=== PATIENT | male | born 1975 | race Hispanic/Latino ===

== ENCOUNTER 2018-12-06 21:19 | Emergency (ER) | payer OTHER ==
--- OUTSIDE RECORDS SUMMARY | 2018-12-06 21:21 | XMS REPORT ---
:1975 Author Organization [facility] Address [address] [place] [address] Dr. Faustin [address] [place] [address] Care Team Providers Name Role Phone Unavailable Unavailable Unavailable Problems This patient has no known problems. Allergies, Adverse Reactions, Alerts This patient has no known allergies or adverse reactions. Medications This patient has no known medications.
--- OUTSIDE RECORDS SUMMARY | 2018-12-06 21:21 | XMS REPORT | Summary of Care ---
:1975 Author Organization [facility] Address [address] [place] [address] Care Team Providers Name Role Phone Monty Murrell MD Primary Care Provider Encounter Details Date Type Department Care Team Description 11/16/2018 Orders Only [facility] Doctor Unassigned, No [address] [facility] [place] [address] [address] [place] [address] Allergies No Known Allergiesdocumented as of this encounter (statuses as of 11/16/2018) Medications Medication Sig Dispensed Refills Start Date End Date Status lisinopril 20 mg Take 1 tablet by 90 tablet 4 09/05/2017 Active tabletIndications: mouth daily. Essential hypertension tadalafil (CIALIS) 20 Take 1 tablet by 6 tablet 12 09/05/2017 Active mg tabletIndications: mouth as needed Erectile dysfunction, for Erectile unspecified erectile dysfunction. dysfunction type documented as of this encounter (statuses as of 11/16/2018) Active Problems Problem Noted Date Essential hypertension 08/18/2015 ED (erectile dysfunction) 08/18/2015 documented as of this encounter (statuses as of 11/16/2018) Social History Tobacco Use Types Packs/Day Years Used Date Current Some Day Smoker Smokeless Tobacco: Current User Snuff Alcohol Use Drinks/Week oz/Week Comments Yes 0 Standard drinks or equivalent 28.8 occ 48 Cans of beer Sex Assigned at Date Recorded Not on file Job Start Date Occupation Industry Not on file Not on file Not on file Travel History Travel Start Travel End No recent travel history available. documented as of this encounter Last Filed Vital Signs Not on filedocumented in this encounter Plan of Treatment Date Type Specialty Care Team Description 11/16/2018 Office Visit Family Medicine Monty Murrell MD [address] [place] [address] [place] [address] Health Maintenance Due Date Last Done Comments PNEUMOCOCCAL 0-64 YEARS COMBINED SERIES (1 of - 1981 PPSV23) DTaP,Tdap,and Td Vaccines (1 - Tdap) 1994 INFLUENZA VACCINE (#1) 2018 documented as of this encounter Procedures Procedure Name Priority Date/Time Associated Diagnosis Comments ASSIGNMENT OF BENEFITS Routine 11/16/2018 8:28 AM CDT documented in this encounter Results Not on filedocumented in this encounter Insurance Payer Benefit Plan / Group Subscriber ID Effective Dates Phone Address Type AETLEONARD MAIER [employer] [id number] 2014-Present PPO documented as of this encounter
--- OUTSIDE RECORDS SUMMARY | 2018-12-06 21:21 | XMS REPORT | Summary of Care ---
:1975 Author Organization [facility] Address [address] [place] [address] Care Team Providers Name Role Phone Monty Murrell MD Primary Care Provider Encounter Details Date Type Department Care Team Description 10/04/2018 Orders Only [facility] Doctor Unassigned, No 301 [facility] [place] [address] [address] [place] [address] Allergies No Known Allergiesdocumented as of this encounter (statuses as of 10/17/2018) Medications Medication Sig Dispensed Refills Start Date End Date Status lisinopril 20 mg Take 1 tablet by 90 tablet 4 09/05/2017 Active tabletIndications: mouth daily. Essential hypertension tadalafil (CIALIS) 20 Take 1 tablet by 6 tablet 12 09/05/2017 Active mg tabletIndications: mouth as needed Erectile dysfunction, for Erectile unspecified erectile dysfunction. dysfunction type documented as of this encounter (statuses as of 10/17/2018) Active Problems Problem Noted Date Essential hypertension 08/18/2015 ED (erectile dysfunction) 08/18/2015 documented as of this encounter (statuses as of 10/17/2018) Social History Tobacco Use Types Packs/Day Years [...] filedocumented in this encounter Plan of Treatment Health Maintenance Due Date Last Done Comments PNEUMOCOCCAL 0-64 YEARS COMBINED SERIES (1 of - 1981 PPSV23) DTaP,Tdap,and Td Vaccines (1 - Tdap) 1994 INFLUENZA VACCINE 11/18/2018 documented as of this encounter Procedures Procedure Name Priority Date/Time Associated Diagnosis Comments AUTHORIZATION FOR RELEASE Routine 10/04/2018 12:01 AM OF [facility] CDT documented in this encounter Results Not on filedocumented in this encounter Insurance Payer Benefit Plan / Group Subscriber ID Effective Dates Phone Address Type AETORRI MAIER [employer] [id number] 2014-Present PPO documented as of this encounter
--- OUTSIDE RECORDS SUMMARY | 2018-12-06 21:22 | XMS REPORT | Summary of Care ---
:1975 Author Organization [facility] - [facility] Address [address] [place] [address] Care Team Providers Name Role Phone Monty Murrell MD Primary Care Provider Reason for Visit Reason Comments Physical Wellness - Male Annual Refill Request LAB WORK Encounter Details Date Type Department Care Team Description 11/16/2018 Office Visit [facility] Family Monty Murrell Annual physical exam (Primary Dx); Medicine - Rosa Garces MD Essential hypertension; [facility] [address] [place] [address] Erectile dysfunction, unspecified [place] [phone] Allergies No Known Allergiesdocumented as of this encounter (statuses as of 11/16/2018) Medications Medication Sig Dispensed Refills Start Date End Date Status tadalafil (CIALIS) Take 1 tablet 6 tablet 12 11/16/2018 Active 20 mg by mouth as tabletIndications: needed for Erectile Erectile dysfunction, dysfunction. unspecified erectile dysfunction type lisinopril 20 mg Take 1 tablet 90 tablet 4 11/16/2018 Active tabletIndications: by mouth Essential daily. hypertension lisinopril 20 mg Take 1 tablet 90 tablet 4 09/05/2017 11/16/2018 Discontinued tabletIndications: by mouth Essential daily. hypertension tadalafil (CIALIS) Take 1 tablet 6 tablet 12 09/05/2017 11/16/2018 Discontinued 20 mg by mouth as tabletIndications: needed for Erectile Erectile dysfunction, dysfunction. unspecified erectile dysfunction type documented as of this encounter [...] of this encounter Last Filed Vital Signs Vital Sign Reading Time Taken Comments Blood Pressure 129/89 11/16/2018 8:38 AM CDT Pulse 73 11/16/2018 8:38 AM CDT Temperature 36.8 C (98.2 F) 11/16/2018 8:38 AM CDT Respiratory Rate - - Oxygen Saturation 98% 11/16/2018 8:38 AM CDT Inhaled Oxygen Concentration - - Weight 93.4 kg (206 lb) 11/16/2018 8:38 AM CDT Height 175.3 cm (5' 9") 11/16/2018 8:38 AM CDT Body Mass Index 30.42 11/16/2018 8:38 AM CDT documented in this encounter Progress Notes Joseline Foster - 11/16/2018 8:30 AM CDTVenipuncture Collection performed by clean technique. Total of 1 attempts were made. Slight pressureand a bandage/ dressing were applied to the site(s). The patient experienced no complications. Specimens were sent processed to [facility] laboratories. INTMonty Murrell MD - 11/16/2018 8:30 AM CDT CC: annual exam Aston is a 43 year old male Hypertension Chronicity: Chronic Context: normal sodium, not caffeine, not drug abuse, not herbal remedies, not medication change, not noncompliance, not OTC medications used and not stress Relieved by: PEPPER inhibitors Associated symptoms: no chest pain, no epistaxis, no headaches, no palpitations , no peripheral edemaand no shortness of breath Risk factors: family hx of HTN Risk factors: no alcohol use, no cardiac disease, no cocaine use, no decongestant use, no diabetes, no kidney disease, no obesity, no prior aneurysm , no prior stroke, no PVD and no tobacco use No Known Allergies Current Outpatient Medications Medication Sig Dispense Refill lisinopril 20 mg tablet Take 1 tablet by mouth daily. 90 tablet 4 tadalafil (CIALIS) 20 mg tablet Take 1 tablet by mouth as needed for Erectile dysfunction. 6 tablet 12 No current facility-administered medications for this visit. Past Medical History: Diagnosis Date ED (erectile dysfunction) Hypertension Past Surgical History: Procedure Laterality Date APPENDECTOMY EXTRACORPOREAL SHOCKWAVE LITHOTRIPSY Right 04/2016 KNEE ARTHROSCOPY Left REMOVAL OF KIDNEY STONE multiple stones over the years. Social History Socioeconomic History Marital status: Spouse name: Not on file Number of children: Not on file Years of education: Not on file Highest education level: Not on file Occupational History Not on file Social Needs Financial resource strain: Not on file Food insecurity: Worry: Not on file Inability: Not on file Transportation needs: Medical: Not on file Non-medical: Not on file Tobacco Use Smoking status: Current Some Day Smoker Smokeless tobacco: Current User Types: Snuff Substance and Sexual Activity Alcohol use: Yes Alcohol/week: 28.8 oz Types: 48 Cans of beer per week Comment: occ Drug use: No Sexual activity: Yes Partners: Female Lifestyle Physical activity: Days per week: Not on file Minutes per session: Not on file Stress: Not on file Relationships Social connections: Talks on phone: Not on file Gets together: Not on file Attends nondenominational service: Not on file Active member of club or organization: Not on file Attends meetings of clubs or organizations: Not on file Relationship status: Not on file Intimate partner violence: Fear of current or ex partner: Not on file Emotionally abused: Not on file Physically abused: Not on file Forced sexual activity: Not on file Other Topics Concern Not on file Social History Narrative 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 Family History Problem Relation Age of Onset Hypertension Mother No Significant Medical Problems Father Review of Systems HENT: Negative for nosebleeds. Respiratory: Negative for shortness of breath. Cardiovascular: Negative for chest pain and palpitations. Neurological: Negative for headaches. BP 129/89 (BP Location: Left arm, Patient Position: Sitting, BP CUFF SIZE: Adult Large) | Pulse 73| Temp 36.8 C (98.2 F) (Oral) | Ht 5' 9" (1.753 m) | Wt 206 lb (93.4 kg) | SpO2 98% | BMI 30.42 kg/m Physical Exam Constitutional: He is oriented to person, place, and time. He appears well- developed and well-nourished. HENT: Head: Normocephalic and atraumatic. Eyes: Conjunctivae are normal. Neck: Normal range of motion. Neck supple. No JVD present. No tracheal deviation present. No thyromegaly present. Cardiovascular: Normal rate, regular rhythm, normal heart sounds and intact distal pulses. Exam reveals no gallop and no friction rub. No murmur heard. Pulmonary/Chest: Effort normal and breath sounds normal. No respiratory distress. He has no wheezes.He has no rales. He exhibits no tenderness. Abdominal: Soft. Bowel sounds are normal. He exhibits no distension and no mass. There is no tenderness. There is no rebound and no guarding. Musculoskeletal: Normal range of motion. He exhibits no edema or tenderness. Lymphadenopathy: He has no cervical adenopathy. Neurological: He is alert and oriented to person, place, and time. Skin: Skin is warm and dry. Diagnosis: 1. Annual physical exam 2. Essential hypertension lisinopril 20 mg tablet CBC WITH DIFF COMP. METABOLIC PANEL (66217) LIPID PANEL (33351)(TOTAL CHOLESTEROL, TRIGLYCERIDES, HDL) CBC WITH DIFFERENTIAL 3. Erectile dysfunction, unspecified erectile dysfunction type tadalafil ( CIALIS) 20 mg tablet Follow up: prn Patient Care Team: Monty Murrell MD as PCP - General ([facility]-FAMILY MEDICINE) Plan of care, desired health behaviors, goals,& medication discussed with patient. Education resources & self management tools provided and reviewed with AVS. Patient/guardian/family verbalized understanding & agrees to plan of care. Barriers to care: None Ability to manage care: Good documented in this encounter Plan of Treatment Name Type Priority Associated Diagnoses Order Schedule CBC WITH DIFF LAB Routine Essential hypertension Ordered: 11/16/2018 COMP. METABOLIC PANEL LAB Routine Essential hypertension Ordered: 2018 (85455) LIPID PANEL (30287)(TOTAL LAB Routine Essential hypertension Ordered: 11/16 CHOLESTEROL, TRIGLYCERIDES, HDL) CBC WITH DIFFERENTIAL LAB Routine Essential hypertension Ordered: 2018 Health Maintenance Due Date Last Done Comments PNEUMOCOCCAL 0-64 YEARS COMBINED SERIES (1 of - 1981 PPSV23) DTaP,Tdap,and Td Vaccines (1 - Tdap) 1994 INFLUENZA VACCINE (#1) 2018 documented as of this encounter Results Not on filedocumented in this encounter Visit Diagnoses Diagnosis Annual physical exam - Primary Routine general medical examination at a health care facility Essential hypertension Unspecified essential hypertension Erectile dysfunction, unspecified erectile dysfunction type documented in this encounter ([place]) [place] [address] documented as of this encounter
--- OUTSIDE RECORDS SUMMARY | 2018-12-06 21:22 | XMS REPORT | Summary of Care ---
:1975 Author Organization [facility] - Health Address [address] [place] [address] Care Team Providers Name Role Phone Monty Murrell MD Primary Care Provider Reason for Visit Reason Comments Physical Wellness - Male Annual Refill Request Encounter Details Date Type Department Care Team Description 11/16/2018 Office Visit [facility] Family Monty Murrell Annual physical exam (Primary Dx); Medicine - Rosa Garces MD Essential hypertension; [facility] 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 Family [...] tablet CBC WITH DIFF COMP. METABOLIC PANEL (81611) LIPID PANEL (11452)(TOTAL CHOLESTEROL, TRIGLYCERIDES, HDL) CBC WITH DIFFERENTIAL 3. [...] PANEL LAB Routine Essential hypertension Ordered: 2018 (86413) LIPID PANEL (18331)(TOTAL LAB Routine Essential hypertension Ordered: 11/16 CHOLESTEROL, TRIGLYCERIDES, HDL) CBC WITH DIFFERENTIAL LAB Routine Essential hypertension Ordered: 2018 Health Maintenance Due Date Last Done Comments PNEUMOCOCCAL 0-64 YEARS COMBINED SERIES (1 of 1 - 1981 PPSV23) DTaP,Tdap,and Td Vaccines (1 - Tdap) 1994 INFLUENZA VACCINE (#1) 2018 documented as of this encounter Results Not on filedocumented in this encounter Visit Diagnoses Diagnosis Annual physical exam - Primary Routine general medical examination at a health care facility Essential hypertension Unspecified essential hypertension Erectile dysfunction, unspecified erectile dysfunction type documented in this encounter ([place]) [place] [address] documented as of this encounter
--- OUTSIDE RECORDS SUMMARY | 2018-12-06 21:22 | XMS REPORT | Summary of Care ---
:1975 Author Organization [facility] - [facility] Address [address] [place] [address] Care Team Providers Name Role Phone Monty Murrell MD Primary Care Provider Reason for Visit Reason Comments Physical Wellness - Male Annual Refill Request LAB WORK Encounter Details Date Type Department Care Team Description 11/16/2018 Office Visit [facility] Family Monty Murrell Annual physical exam (Primary Dx); Medicine - Rosa Garces MD Essential hypertension; [facility] [address] [place] [address] Erectile dysfunction, unspecified [place] [phone] Allergies No Known Allergiesdocumented as of this encounter (statuses as of 11/19/2018) Medications Medication Sig Dispensed Refills Start Date [...] as of this encounter (statuses as of 11/19/2018) Active Problems Problem Noted Date Essential hypertension 08/18/2015 ED (erectile dysfunction) 08/18/2015 documented as of this encounter (statuses as of 11/19/2018) Social History Tobacco Use Types Packs/Day Years [...] no complications. Specimens were sent processed to [facility] laboratories. 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 Family [...] tablet CBC WITH DIFF COMP. METABOLIC PANEL (94122) LIPID PANEL (30842)(TOTAL CHOLESTEROL, TRIGLYCERIDES, HDL) CBC WITH DIFFERENTIAL 3. [...] documented in this encounter Plan of Treatment Health Maintenance Due Date Last Done Comments PNEUMOCOCCAL 0-64 YEARS COMBINED SERIES (1 of - 1981 PPSV23) DTaP,Tdap,and Td Vaccines (1 - Tdap) 1994 INFLUENZA VACCINE (#1) 2018 documented as of this encounter Procedures Procedure Name Priority Date/Time Associated Diagnosis Comments CBC WITH DIFFERENTIAL Routine 11/16/2018 8:54 Essential Results for this AM CDT hypertension procedure are in the results section. CBC WITH DIFF Routine 11/16/2018 8:54 Essential Results for this AM CDT hypertension procedure are in the results section. LIPID PANEL Routine 11/16/2018 8:54 Essential Results for this (05162)(TOTAL AM CDT hypertension procedure are in CHOLESTEROL, the results TRIGLYCERIDES, HDL) section. COMP. METABOLIC PANEL Routine 11/16/2018 8:54 Essential Results for this (90666) AM CDT hypertension procedure are in the results section. documented in this encounter Results CBC WITH DIFFERENTIAL (11/16/2018 8:54 AM CDT) WBC 7.41 4.20 - 10.70 [facility] 10*3/L [facility] RBC 5.61 (H) 4.26 - 5.52 [facility] 10*6/L [facility] HGB 16.8 (H) 12.2 - 16.4 [facility] g/dL [facility] HCT 48.4 38.4 - 49.3 % [facility] MCV 86.3 81.7 - 95.6 fL [facility] MCH 29.9 26.1 - 32.7 pg [facility] MCHC 34.7 31.2 - 35.0 [facility] g/dL [facility] RDW-SD 38.9 38.5 - 51.6 fL [facility] RDW-CV 12.4 12.1 - 15.4 % [facility] PLT 304 150 - 328 [facility] 10*3/L [facility] MPV 11.3 9.8 - 13.0 fL [facility] NRBC/100 WBC 0.0 0.0 - 10.0 /100 [facility] WBCs [facility] NRBC x10^3 <0.01 10*3/L [facility] GRAN MAT (NEUT) % 56.6 % [facility] IMM GRAN % 0.40 % [facility] LYMPH % 33.3 % [facility] MONO % 7.0 % [facility] EOS % 1.5 % [facility] BASO % 1.2 % [facility] GRAN MAT x10^3(ANC) 4.19 1.99 - 6.95 [facility] 10*3/uL [facility] IMM GRAN x10^3 0.03 0.00 - 0.06 [facility] 10*3/uL [facility]OSPITAL [facility] LYMPH x10^3 2.47 1.09 - 3.23 [facility] 10*3/uL [facility] MONO x10^3 0.52 0.36 - 1.02 [facility] 10*3/uL [facility] EOS x10^3 0.11 0.06 - 0.53 [facility] 10*3/uL [facility] BASO x10^3 0.09 0.01 - 0.[address]/uL [facility] Specimen Blood - ARM, LEFT Performing Organization Address [facility] Phone Number [facility] CLIA: [id number], [address] [place] [address] LIPID PANEL (49284)(TOTAL CHOLESTEROL, TRIGLYCERIDES, HDL) (11/16/2018 8:54 AM CDT) CHOL 164 120 - 200 mg/dL [facility] HDL 37 (L) >40 mg/dL [facility] HDLC RATIO 4.4 <=5.0 [facility] TRIG 263 (H) 30 - 170 mg/dL [facility] LDL CHOL 74 <=160 mg/dL [facility] VLDL 53 5 - 60 mg/dL [facility] Specimen Blood - ARM, LEFT Performing Organization Address [facility] Phone Number [facility] CLIA: [id number], [address] [place] [id number] [address] COMP. METABOLIC PANEL (64668) (11/16/2018 8:54 AM CDT) NA 145 135 - 145 mmol/L [facility] K 4.5 3.5 - 5.0 mmol/L [facility] CL 104 98 - 108 mmol/L [facility] CO2 TOTAL 28 23 - 31 mmol/L [facility] AGAP 13 2 - 16 [facility] BUN 11 7 - 23 mg/dL [facility] GLUCOSE 92 70 - 110 mg/dL [facility] CREATININE 1.00 0.60 - 1.25 [facility] mg/dL [facility] TOTAL BILI 0.7 0.1 - 1.1 mg/dL [facility] CALCIUM 10.0 8.6 - 10.6 mg/dL [facility] T PROTEIN 8.0 6.3 - 8.2 g/dL [facility] ALBUMIN 4.7 3.5 - 5.0 g/dL [facility] ALK PHOS 90 34 - 122 U/L [facility] ALT(SGPT) 46 9 - 51 U/L [facility] AST(SGOT) 30 13 - 40 U/L [facility] eGFR Calculation 81.6 mL/min/1.73m2 [facility] (Non-) [facility] eGFR Calculation 98.8 mL/min/1.73m2 [facility] () [facility] Specimen Blood - ARM, LEFT Narrative Performed At Association of Glomerular Filtration Rate (GFR) [facility] and Staging of Kidney Disease* + + +- + | GFR (mL/min/1.73 m2)| With Kidney Damage|Without Kidney Damage + + +- + |>90| Stage one| Normal + + +- + |60-89|S tage two| Decreased GFR + + +- + |30-59|S tage three| Stage three + + +- + |15-29|S tage four | Stage four + + +- + |<15 (or dialysis)|Stage five | Stage five + + +- + *Each stage assumes the associated GFR level has been in effect for at least three months.Stages 1 to 5, with or without kidney disease, indicate chronic kidney disease. Notes: Determination of stages one and two (with eGFR >59mL/min/1.73 m2) requires estimation of kidney damage for at least three months as defined by structural or functional abnormalities of the kidney, manifested by either: Pathological abnormalities or Markers of kidney damage (including abnormalities in the composition of the blood or urine or abnormalities in imaging tests). Performing Organization Address City/State/Zipcode Phone Number [facility] CLIA: [id number], [address] [place] [address] documented in this encounter Visit Diagnoses Diagnosis Annual physical exam - Primary Routine general medical examination at a health care facility Essential hypertension Unspecified essential hypertension Erectile dysfunction, unspecified erectile dysfunction type documented in this encounter ([place]) [place] [address] documented as of this encounter
--- OUTSIDE RECORDS SUMMARY | 2018-12-06 21:22 | XMS REPORT | Summary of Care ---
:1975 Author Organization [facility] - Health Address [address] [place] [id number] Care Team Providers Name Role Phone Monty Murrell MD Primary Care Provider Reason for Visit Reason Comments Physical Wellness - Male Annual Refill Request Encounter Details Date Type Department Care Team Description 11/16/2018 Office Visit [facility] Family Monty Murrell Annual physical exam (Primary Dx); Medicine - Rosa Garces MD Essential hypertension; [facility] 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 Family [...] tablet CBC WITH DIFF COMP. METABOLIC PANEL (67649) LIPID PANEL (39563)(TOTAL CHOLESTEROL, TRIGLYCERIDES, HDL) CBC WITH DIFFERENTIAL 3. [...] PANEL LAB Routine Essential hypertension Ordered: 2018 (04352) LIPID PANEL (95605)(TOTAL LAB Routine Essential hypertension Ordered: 11/16 CHOLESTEROL, [...] erectile dysfunction type documented in this encounter ([place]) [place] [address] documented as of this encounter
[2018-12-06] MEDS ORDERED: KETOROLAC 30 MG/ML INJ ONE (21:42)
[2018-12-06] MEDS ORDERED: NA CHLORIDE 0.9% 1,000 ML ONE (21:42)
[2018-12-06 21:51] LABS: Absolute Lymphocytes (CBC) 2.9 K/uL (0.7-4.9); Basophils % 1.2 % (0-1.3); Hematocrit 47.5 % (39.6-49.0); Lymphocytes % 20.4 % (15.3-44.8); MPV 9.3 fL (7.6-11.3); RBC Red Blood Cell Count 5.48 M/uL (4.33-5.43)
[2018-12-06] MEDS ORDERED: ONDANSETRON 4 MG/2 ML VIAL ONE (22:05)
[2018-12-06] MEDS ORDERED: MORPHINE 4 MG/ML SYR ONE (22:05)
[2018-12-06 22:08] LABS: Albumin 4.3 g/dL (3.4-5.0); Bilirubin Direct 0.1 mg/dL (0-0.2); Bilirubin Total 0.6 mg/dL (0.2-1.0); Potassium 3.9 mmol/L (3.5-5.1); Protein, Total 7.8 g/dL (6.4-8.2)
[2018-12-06 22:46] LABS: Urine Blood 2+ (NEG); Urine Glucose NEGATIVE (NEG); Urine Protein 1+ (NEG); Urine Specific Gravity >1.030 (1.005-1.030)
[2018-12-06] MEDS ORDERED: CEFTRIAXONE/SWI 1gm 1 GM/10 ML SYR ONE (23:01)
[2018-12-06] MEDS ORDERED: HYDROMORPHONE HCL 1 MG/ML INJ ONE (23:01)
--- NOTE | 2018-12-06 23:38 | ER ---
Nurse's Notes [facility] Name: Aston Scanlon Age: 43 yrs Sex: Male : 1975 Arrival Date: 12/06/2018 Time: 21:22 Bed 30 Private MD: Diagnosis: Hydronephrosis with renal and ureteral calculous obstruction;Elevated white blood cell count Presentation: 12/06 21:23 Presenting complaint: Patient states: "I got a kidney stones" Reports left flank pain, aj1 urinary frequency. Denies dysuria, denies fever. Reports that he has a history of kidney stones and this feels similar to previous episodes. Transition of care: patient was not received from another setting of care. Onset of symptoms was December 06, 2018. Risk Assessment: Do you want to hurt yourself or someone else? Patient reports no desire to harm self or others. Initial Sepsis Screen: Does the patient meet any 2 criteria? No. Patient's initial sepsis screen is negative. Does the patient have a suspected source of infection? No. Patient's initial sepsis screen is negative. Care prior to arrival: None. 21:23 Method Of Arrival: Ambulatory aj1 21:23 Acuity: CORDELL 3 aj1 Triage Assessment: 21:26 General: Appears in no apparent distress. uncomfortable, Behavior is calm, cooperative, aj1 appropriate for age. Pain: Pain currently is 10 out of 10 on a pain scale. Neuro: Level of Consciousness is awake, alert, obeys commands. Cardiovascular: Patient's skin is warm and dry. Respiratory: Airway is patent Respiratory effort is even, unlabored, Respiratory pattern is regular, symmetrical. GI: Patient currently denies nausea, vomiting. : Reports urinary frequency. Historical: - Allergies: 21:26 No Known Allergies; aj1 - Home Meds: 21:26 Tramadol Oral [Active]; lisinopril 20 mg Oral tab 1 tab once daily [Active]; aj1 - PMHx: 21:26 Hypertension; Kidney stones; aj1 - Immunization history:: Flu vaccine is up to date. - Social history:: Smoking status: Patient/guardian denies using tobacco. - Ebola Screening: : Patient denies travel to an Ebola-affected area in the 21 days before illness onset. - Family history:: not pertinent. Screenin:54 Abuse screen: Denies threats or abuse. Denies injuries from another. Nutritional rv screening: No deficits noted. Tuberculosis screening: No symptoms or risk factors identified. Fall Risk None identified. Assessment: 21:47 General: Appears in no apparent distress. comfortable. Pain: Complains of pain in right rv lower quadrant. Neuro: Level of Consciousness is awake, alert, obeys commands, Oriented to person, place, time, situation. Cardiovascular: Patient's skin is warm and dry. Respiratory: Airway is patent. GI: Bowel sounds present X 4 quads. Abd is soft and non tender X 4 quads. : No signs and/or symptoms were reported regarding the genitourinary system. EENT: No signs and/or symptoms were reported regarding the EENT system. Derm: Skin is intact. Musculoskeletal: No signs and/or symptoms reported regarding the musculoskeletal system. 23:18 Reassessment: Patient appears in no apparent distress at this time. Patient and/or rv family updated on plan of care and expected duration. Pain level reassessed. Patient is alert, oriented x 3, equal unlabored respirations, skin warm/dry/pink. PATIENT IS UPDATED ON RESULTS AND PLAN OF CARE. AWAITING RESULT OF CT SCAN. 12/07 00:03 Reassessment: CAME IN THE ER AND TOOK THE PATIENT HOME. rv Vital Signs: 12/06 21:26 BP 150 / 107; Pulse 64; Resp 18; Temp 97.4; Pulse Ox 96% on R/A; Weight 94.35 kg (R); aj1 Height 5 ft. 10 in. (177.80 cm) (R); Pain 10/10; 22:30 BP 146 / 99; Pulse 75; Resp 15; Pulse Ox 97% on R/A; rv 23:15 Pain 7/10; rv 23:17 BP 137 / 101; Pulse 68; Resp 16; Pulse Ox 97% ; rv 21:26 Body Mass Index 29.84 (94.35 kg, 177.80 cm) aj1 ED Course: 21:22 Patient arrived in ED. mr 21:25 Triage completed. aj1 21:26 Arm band placed on Patient placed in an exam room. aj1 21:29 Houston Gutierrez MD is Attending Physician. [facility] 21:39 Shailesh Herrera, DELISA is Primary Nurse. rv 21:54 Patient has correct armband on for positive identification. Bed in low position. Call rv light in reach. Side rails up X 1. Pulse ox on. NIBP on. 21:54 Initial lab(s) drawn, by me, sent to lab. Inserted saline lock: 20 gauge in right rv antecubital area, using aseptic technique. Blood collected. 22:26 CT completed. Patient tolerated procedure well. Patient moved back from CT. jg6 22:33 CT Stone Protocol In Process Unspecified. EDMS 23:38 Caitlyn Vance MD is Referral Physician. hieu 23:50 No provider procedures requiring assistance completed. IV discontinued, intact, rv bleeding controlled, No redness/swelling at site. Pressure dressing applied. Administered Medications: 21:43 Drug: NS 0.9% 1000 ml Route: IV; Rate: 1 bolus; Site: right antecubital; rv 23:13 Follow up: IV Status: Completed infusion; IV Intake: 1000ml rv 21:43 Drug: TORadol 30 mg Route: IVP; Site: right antecubital; rv 23:14 Follow up: Response: No adverse reaction; Pain is decreased rv 22:13 Drug: morphine 4 mg {Note: rass 0.} Route: IVP; Site: right antecubital; rv 23:15 Follow up: Pain 7/10 Adult; Response: No adverse reaction; Pain is decreased rv 23:15 Follow up: Response: RASS: Alert and Calm (0) rv 22:13 Drug: Zofran 4 mg Route: IVP; Site: right antecubital; rv 23:15 Follow up: Response: No adverse reaction rv 22:30 Drug: Rocephin 1 grams Route: IV; Rate: per protocol; Site: right antecubital; rv 23:15 Follow up: IV Status: Completed infusion rv 22:53 CANCELLED (Duplicate Order): Dilaudid 1 mg IM once; RASS on ADMIN: Combtv4, Very hieu Agttd3, Agttd2, Rstlss1, AlertClm0, Drwsy-1, Lt Sdtn-2, Mod Sdtn-3, Dp Sdtn-4, UnArsble-5 23:08 Drug: Dilaudid 1 mg {Note: RASS 0.} Route: IVP; Site: right antecubital; rv 23:50 Follow up: Response: No adverse reaction; Marked relief of symptoms; Pain is decreased; rv RASS: Alert and Calm (0) 23:16 Drug: NS 0.9% 1000 ml Route: IV; Rate: 1 bolus; Site: right antecubital; rv 12/07 00:00 Follow up: IV Status: Completed infusion rv 12/06 23:49 Drug: Flomax 0.4 mg Route: PO; rv 23:49 Follow up: Response: Medication administered at discharge. rv Intake: 23:13 IV: 1000ml; Total: 1000ml. rv Outcome: 23:38 Discharge ordered by . hieu 23:50 Discharged to home ambulatory, with family. rv 23:50 Condition: good 23:50 Discharge instructions given to patient, Instructed on discharge instructions, follow up and referral plans. medication usage, Demonstrated understanding of instructions, follow-up care, medications, Prescriptions given X 4. 12/07 00:04 Patient left the ED. rv Signatures: Dispatcher [employer] EDLaya Belle RN RN Houston Sims MD MD cha Rivera, Mary mr Vicente, Ronaldo, RN RN rv Garcia, Jessica jg6
--- NOTE | 2018-12-06 23:39 | EDPHYS ---
Physician Documentation [facility] Name: Aston Scanlon Age: 43 yrs Sex: Male : 1975 Arrival Date: 12/06/2018 Time: 21:22 Bed 30 Private MD: AYALA Physician Houston Gutierrez HPI: 12/06 22:52 This 43 yrs old Male presents to ER via Ambulatory with complaints of Possible hieu Kidney Stone. 22:52 The patient presents with abdominal pain in the lower abdomen, right lower quadrant. hieu Onset: The symptoms/episode began/occurred this morning. The patient complains of pain in the right mid back and right low back. The pain radiates to the right mid back and right low back. Onset: The symptoms/episode began/occurred today. Modifying factors: The symptoms are alleviated by nothing. the symptoms are aggravated by nothing. Associated signs and symptoms: The patient has no apparent associated signs or symptoms. Historical: - Allergies: 21:26 No Known Allergies; aj1 - Home Meds: 21:26 Tramadol Oral [Active]; lisinopril 20 mg Oral tab 1 tab once daily [Active]; aj1 - PMHx: 21:26 Hypertension; Kidney stones; aj1 - Immunization history:: Flu vaccine is up to date. - Social history:: Smoking status: Patient/guardian denies using tobacco. - Ebola Screening: : Patient denies travel to an Ebola-affected area in the 21 days before illness onset. - Family history:: not pertinent. ROS: 22:52 Constitutional: Negative for fever, chills, and weight loss, Eyes: Negative for injury, hieu pain, redness, and discharge, ENT: Negative for injury, pain, and discharge, Neck: Negative for injury, pain, and swelling, Cardiovascular: Negative for chest pain, palpitations, and edema, Respiratory: Negative for shortness of breath, cough, wheezing, and pleuritic chest pain, : Negative for injury, bleeding, discharge, and swelling, MS/Extremity: Negative for injury and deformity, Skin: Negative for injury, rash, and discoloration, Neuro: Negative for headache, weakness, numbness, tingling, and seizure, Psych: Negative for depression, anxiety, suicide ideation, homicidal ideation, and hallucinations, Allergy/Immunology: Negative for hives, rash, and allergies, Endocrine: Negative for neck swelling, polydipsia, polyuria, polyphagia, and marked weight changes, Hematologic/Lymphatic: Negative for swollen nodes, abnormal bleeding, and unusual bruising. 22:52 Abdomen/GI: Positive for abdominal pain, abdominal cramps, of the anterior aspect of right lateral abdomen, posterior aspect of right lateral abdomen and right lower quadrant. Exam: 22:52 Constitutional: This is a well developed, well nourished patient who is awake, alert, hieu and in no acute distress. Head/Face: Normocephalic, atraumatic. Eyes: Pupils equal round and reactive to light, extra-ocular motions intact. Lids and lashes normal. Conjunctiva and sclera are non-icteric and not injected. Cornea within normal limits. Periorbital areas with no swelling, redness, or edema. ENT: Nares patent. No nasal discharge, no septal abnormalities noted. Tympanic membranes are normal and external auditory canals are clear. Oropharynx with no redness, swelling, or masses, exudates, or evidence of obstruction, uvula midline. Mucous membranes moist. Neck: Trachea midline, no thyromegaly or masses palpated, and no cervical lymphadenopathy. Supple, full range of motion without nuchal rigidity, or vertebral point tenderness. No Meningismus. Chest/axilla: Normal chest wall appearance and motion. Nontender with no deformity. No lesions are appreciated. Cardiovascular: Regular rate and rhythm with a normal S1 and S2. No gallops, murmurs, or rubs. Normal PMI, no JVD. No pulse deficits. Respiratory: Lungs have equal breath sounds bilaterally, clear to auscultation and percussion. No rales, rhonchi or wheezes noted. No increased work of breathing, no retractions or nasal flaring. Back: No spinal tenderness. No costovertebral tenderness. Full range of motion. Male : Normal genitalia with no discharge or lesions. Skin: Warm, dry with normal turgor. Normal color with no rashes, no lesions, and no evidence of cellulitis. MS/ Extremity: Pulses equal, no cyanosis. Neurovascular intact. Full, normal range of motion. Neuro: Awake and alert, GCS 15, oriented to person, place, time, and situation. Cranial nerves II-XII grossly intact. Motor strength 5/5 in all extremities. Sensory grossly intact. Cerebellar exam normal. Normal gait. Psych: Awake, alert, with orientation to person, place and time. Behavior, mood, and affect are within normal limits. 22:52 Abdomen/GI: Inspection: abdomen appears normal, Bowel sounds: normal, Palpation: abdomen is soft and non-tender, Liver: no appreciated palpable abnormalities, Hernia: not appreciated. Vital Signs: 21:26 BP 150 / 107; Pulse 64; Resp 18; Temp 97.4; Pulse Ox 96% on R/A; Weight 94.35 kg (R); aj1 Height 5 ft. 10 in. (177.80 cm) (R); Pain 10/10; 22:30 BP 146 / 99; Pulse 75; Resp 15; Pulse Ox 97% on R/A; rv 23:15 Pain 7/10; rv 23:17 BP 137 / 101; Pulse 68; Resp 16; Pulse Ox 97% ; rv 21:26 Body Mass Index 29.84 (94.35 kg, 177.80 cm) [facility] MDM: 21:29 Patient medically screened. [facility] 22:54 Data reviewed: vital signs, nurses notes, lab test result(s), radiologic studies, CT hieu scan. 12/06 21:31 Order name: Basic Metabolic Panel; Complete Time: 22:45 [facility] 12/06 21:31 Order name: CBC with Diff; Complete Time: 22:45 [facility] 12/06 21:31 Order name: Creatinine for Radiology; Complete Time: 22:45 [facility] 12/06 21:31 Order name: Hepatic Function; Complete Time: 22:45 [facility] 12/06 21:31 Order name: Lipase; Complete Time: 22:45 [facility] 12/06 21:31 Order name: Urine Culture [facility] 12/06 22:09 Order name: CT Stone Protocol 12/06 22:34 Order name: Urine Dipstick--Ancillary (enter results); Complete Time: 22:45 [facility] 12/06 21:31 Order name: IV Saline Lock; Complete Time: 21:43 [facility] 12/06 21:31 Order name: Labs collected and sent; Complete Time: 21:43 [facility] 12/06 21:31 Order name: Urine Dipstick-Ancillary (obtain specimen); Complete Time: 23:15 [facility] Administered Medications: 21:43 Drug: NS 0.9% 1000 ml Route: IV; Rate: 1 bolus; Site: right antecubital; rv 23:13 Follow up: IV Status: Completed infusion; IV Intake: 1000ml rv 21:43 Drug: TORadol 30 mg Route: IVP; Site: right antecubital; rv 23:14 Follow up: Response: No adverse reaction; Pain is decreased rv 22:13 Drug: morphine 4 mg {Note: rass 0.} Route: IVP; Site: right antecubital; rv 23:15 Follow up: Pain 7/10 Adult; Response: No adverse reaction; Pain is decreased rv 23:15 Follow up: Response: RASS: Alert and Calm (0) rv 22:13 Drug: Zofran 4 mg Route: IVP; Site: right antecubital; rv 23:15 Follow up: Response: No adverse reaction rv 22:30 Drug: Rocephin 1 grams Route: IV; Rate: per protocol; Site: right antecubital; rv 23:15 Follow up: IV Status: Completed infusion rv 22:53 CANCELLED (Duplicate Order): Dilaudid 1 mg IM once; RASS on ADMIN: Combtv4, Very hieu Agttd3, Agttd2, Rstlss1, AlertClm0, Drwsy-1, Lt Sdtn-2, Mod Sdtn-3, Dp Sdtn-4, UnArsble-5 23:08 Drug: Dilaudid 1 mg {Note: RASS 0.} Route: IVP; Site: right antecubital; rv 23:50 Follow up: Response: No adverse reaction; Marked relief of symptoms; Pain is decreased; rv RASS: Alert and Calm (0) 23:16 Drug: NS 0.9% 1000 ml Route: IV; Rate: 1 bolus; Site: right antecubital; rv 12/07 00:00 Follow up: IV Status: Completed infusion rv 12/06 23:49 Drug: Flomax 0.4 mg Route: PO; rv 23:49 Follow up: Response: Medication administered at discharge. rv Disposition: 12/06/18 23:38 Discharged to Home. Impression: Hydronephrosis with renal and ureteral calculous obstruction, Elevated white blood cell count. - Condition is Stable. - Discharge Instructions: Kidney Stones, Kidney Stones, [id number]-[id number], Hydronephrosis, Dietary Guidelines to Help Prevent Kidney Stones. - Prescriptions for Tylenol- Codeine #3 300-30 mg Oral Tablet - take 2 tablet by ORAL route every 6 hours As needed; 30 tablet. Zofran 4 mg Oral Tablet - take 1 tablet by ORAL route every 12 hours As needed; 20 tablet. Flomax 0.4 mg Oral Capsule, Sust. Release 24 hr - take 1 capsule by ORAL route once daily 1/2 hour following the same meal each day; 30 capsule. Cipro 500 mg Oral Tablet - take 1 tablet by ORAL route every 12 hours for 7 days; 14 tablet. - Medication Reconciliation Form, Thank You Letter, Antibiotic Education, Prescription Opioid Use form. - Follow up: Private Physician; When: 2 - 3 days; Reason: Recheck today's complaints, Continuance of care, Re-evaluation by your physician. Follow up: Caitlyn Vance; When: 2 - 3 days; Reason: Recheck today's complaints, Re-evaluation by your physician. - Problem is new. - Symptoms have improved. Signatures: Dispatcher [employer] EDLaya Belle RN RN aj1 Houston Gutierrez MD MD cha Vicente, Ronaldo, RN RN rv Corrections: (The following items were deleted from the chart) 22:53 22:47 Dilaudid 1 mg IM once; RASS on ADMIN: Combtv4, Very Agttd3, Agttd2, Rstlss1, hieu AlertClm0, Drwsy-1, Lt Sdtn-2, Mod Sdtn-3, Dp Sdtn-4, UnArsble-5 ordered. [facility] 12/07 00:04 12/06 23:38 12/06/2018 23:38 Discharged to Home. Impression: Hydronephrosis with renal rv and ureteral calculous obstruction; Elevated white blood cell count. Condition is Stable. Discharge Instructions: Kidney Stones, Kidney Stones, [id number]-mn-[id number], Hydronephrosis, Dietary Guidelines to Help Prevent Kidney Stones. Prescriptions for Tylenol-Codeine #3 300-30 mg Oral Tablet - take 2 tablet by ORAL route every 6 hours As needed; 30 tablet, Zofran 4 mg Oral Tablet - take 1 tablet by ORAL route every 12 hours As needed; 20 tablet, Flomax 0.4 mg Oral Capsule, Sust. Release 24 hr - take 1 capsule by ORAL route once daily 1/2 hour following the same meal each day; 30 capsule, Cipro 500 mg Oral Tablet - take 1 tablet by ORAL route every 12 hours for 7 days; 14 tablet. and Forms are Medication Reconciliation Form, Thank You Letter, Antibiotic Education, Prescription Opioid Use. Follow up: Private Physician; When: 2 - 3 days; Reason: Recheck today's complaints, Continuance of care, Re-evaluation by your physician. Follow up: Caitlyn Vance; When: 2 - 3 days; Reason: Recheck today's complaints, Re-evaluation by your physician. Problem is new. Symptoms have improved. hieu
[2018-12-06] MEDS ORDERED: TAMSULOSIN 0.4 MG SR CAP ONE (23:45)
[2018-12-07 00:30] VITALS: TEMP 97.4
[2018-12-07 00:31] VITALS: O2SAT 97
[2018-12-07 00:34] VITALS: BP 137/101
--- NOTE | 2018-12-07 09:36 | RAD REPORT ---
EXAM DESCRIPTION: CT - Stone Protocol - 12/07/2018 3:59 am CLINICAL HISTORY: PAIN COMPARISON: None. TECHNIQUE: CT ABDOMEN PELVIS WITHOUT IV CONTRAST on 12/06/2018 10:09 PM CDT This exam was performed according to our departmental dose-optimization program, which includes autom ated exposure control, adjustment of the mA and/or kV according to patient size and/or use of iterati ve reconstruction technique. FINDINGS: Lower lungs are clear. Abdomen: The liver is normal in appearance. There is no biliary dilatation. There are several gallsto dick in the gallbladder. There is fluid distending the stomach. The pancreas and spleen are normal in appearance. Adrenal glands are normal. Left kidney contains a 3 mm mid pole calculus without hydronep hrosis. Right kidney contains at least 10 scattered measuring up to four. There is right hydronephros is. There is a 5 mm calculus in the lower third of the right ureter. Abdominal aorta is normal in course and caliber without aneurysm. There is no free air. There is no r etroperitoneal adenopathy. Pelvis: There is no bowel obstruction. Urinary bladder is unremarkable. There is no free fluid. Appen tila is not clearly seen. Skeleton: There are no acute osseous findings. No suspicious bony lesions. IMPRESSION: Bilateral nephrolithiasis with mildly obstructing 5 mm calculus in the lower right urete r. Electronically signed by: Arnold Navarro MD 12/06/2018 11:12 PM CDT Due to temporary technical issues with the PACS/Fluency reporting system, reports are being signed by the in house radiologist as a courtesy to ensure prompt reporting. The interpreting radiologist is f ully responsible for the content of the report.
== END 2018-12-07 00:04 | disposition home or self-care (01) ==
LOC: ER 21:19
DX: N13.2 Hydronephrosis with renal and ureteral calculous obstruction (principal); D72.829 Elevated white blood cell count, unspecified; I10 Essential (primary) hypertension; Z87.442 Personal history of urinary calculi
CPT/HCPCS: 96365; 96361; 87088; 85025; 87086; 80048; 36415; 80076; 81003; 83690; 76377; 74176; 96375; 99284; J1170; J0696; J7030; J2405

== ENCOUNTER 2019-10-18 22:44 | Emergency (ER) | payer OTHER ==
--- OUTSIDE RECORDS SUMMARY | 2019-10-18 22:46 | XMS REPORT | Continuity of Care Document ---
:1975 Author Organization [facility] t Address [address] [place] [address] Care Team Providers Name Role Phone Handy POWELL, Monty Garces Attending Clinician Problems This patient has no known problems. Allergies, Adverse Reactions, Alerts This patient has no known allergies or adverse reactions. Medications This patient has no known medications. Procedures This patient has no known procedures. Encounters Start End Encounter Admission Attending Care Care Encounter Source Date/Time Date/Time Type Type Clinicians Facility Department ID 2018-11-16 2018-11-19 Office LIBRA Murrell [id number] 08:29:23 08:44:27 Visit [facility] [id number] Dez Lee [id number] Kev [id number] nal 044 Office [address] Results This patient has no known results.
[2019-10-18] MEDS ORDERED: MORPHINE 4 MG/ML SYR ONE (23:14)
[2019-10-18] MEDS ORDERED: NA CHLORIDE 0.9% 1,000 ML ONE (23:14)
[2019-10-18] MEDS ORDERED: ONDANSETRON 4 MG/2 ML VIAL ONE (23:14)
[2019-10-18 23:24] LABS: Absolute Lymphocytes (CBC) 2.4 K/uL (0.7-4.9); Basophils % 1.1 % (0-1.3); Hematocrit 47.5 % (39.6-49.0); Lymphocytes % 28.9 % (15.3-44.8); RBC Red Blood Cell Count 5.53 M/uL (4.33-5.43)
[2019-10-18 23:37] LABS: Potassium 3.6 mmol/L (3.5-5.1)
[2019-10-18 23:39] LABS: Urine Blood 1+ (NEG); Urine Glucose NEGATIVE (NEG); Urine Protein NEGATIVE (NEG)
[2019-10-18 23:41] LABS: Urine Bacteria <20 /HPF (NONE SEEN); Urine Culture Reflex Order NOT NEEDED
[2019-10-19] MEDS ORDERED: KETOROLAC 30 MG/ML INJ ONE (00:29)
[2019-10-19] MEDS ORDERED: TAMSULOSIN 0.4 MG SR CAP ONE (00:29)
[2019-10-19] MEDS ORDERED: Magnesium Sulfate 2gm IVPB 2 G/50 ML BAG IV ONE (00:30)
--- NOTE | 2019-10-19 01:01 | EDPHYS ---
Physician Documentation [facility] Name: Aston Scanlon Age: 44 yrs Sex: Male : 1975 Arrival Date: 10/18/2019 Time: 22:47 Bed 15 Private MD: ED Physician Kory Romo HPI: 10/17 23:00 This 44 yrs old Male presents to ER via Ambulatory with complaints of Possible kb Kidney Stone. 23:00 Pt reports flank pain started a week ago, drank a lot of fluids trying to flush it out kb because he has had a stone before and thought that is what it was this time. States pain is now in right lower abd/groin area.. 23:00 The patient complains of pain in the right flank. The pain radiates to the right lower kb quadrant. Onset: The symptoms/episode began/occurred 1 week(s) ago. Modifying factors: The symptoms are alleviated by nothing. the symptoms are aggravated by nothing. Associated signs and symptoms: The patient has no apparent associated signs or symptoms. Severity of pain: At its worst the pain was moderate in the emergency department the pain is unchanged. The patient has experienced similar episodes in the past. The patient has not recently seen a physician. Historical: - Allergies: 23:00 No Known Allergies; ks7 - Home Meds: 23:00 lisinopril 20 mg Oral tab 1 tab once daily [Active]; ks7 - PMHx: 23:00 Hypertension; Kidney stones; ks7 - PSHx: 23:00 Appendectomy; ks7 - Immunization history:: Adult Immunizations up to date. - Social history:: Smoking status: Reported history of juuling and/or vaping. Patient uses. ROS: 23:00 Constitutional: Negative for fever, chills, and weight loss, Cardiovascular: Negative kb for chest pain, palpitations, and edema, Respiratory: Negative for shortness of breath, cough, wheezing, and pleuritic chest pain, Back: Negative for injury and pain, MS/Extremity: Negative for injury and deformity, Skin: Negative for injury, rash, and discoloration, Neuro: Negative for headache, weakness, numbness, tingling, and seizure. 23:00 Abdomen/GI: Positive for abdominal pain, Negative for nausea, vomiting, and diarrhea. 23:00 : Positive for flank pain. Exam: 23:01 Constitutional: This is a well developed, well nourished patient who is awake, alert, kb and in no acute distress. Head/Face: Normocephalic, atraumatic. Chest/axilla: Normal chest wall appearance and motion. Nontender with no deformity. No lesions are appreciated. Cardiovascular: Regular rate and rhythm with a normal S1 and S2. No gallops, murmurs, or rubs. Normal PMI, no JVD. No pulse deficits. Respiratory: Lungs have equal breath sounds bilaterally, clear to auscultation and percussion. No rales, rhonchi or wheezes noted. No increased work of breathing, no retractions or nasal flaring. Back: No spinal tenderness. No costovertebral tenderness. Full range of motion. Skin: Warm, dry with normal turgor. Normal color with no rashes, no lesions, and no evidence of cellulitis. MS/ Extremity: Pulses equal, no cyanosis. Neurovascular intact. Full, normal range of motion. Neuro: Awake and alert, GCS 15, oriented to person, place, time, and situation. Cranial nerves II-XII grossly intact. Motor strength 5/5 in all extremities. Sensory grossly intact. Cerebellar exam normal. Normal gait. 23:01 Abdomen/GI: Inspection: abdomen appears normal, Bowel sounds: normal, in all quadrants, Palpation: soft, in all quadrants, mild abdominal tenderness, in the right lower quadrant. Vital Signs: 22:56 BP 139 / 105; Pulse 79; Resp 18; Temp 98.2(O); Pulse Ox 98% on R/A; Weight 95.25 kg; ks7 Height 5 ft. 10 in. (177.80 cm); Pain 5/10; 23:33 BP 148 / 103; Pulse 74; Resp 18; Pulse Ox 97% on R/A; Pain 4/10; ks7 08 00:37 BP 146 / 105; Pulse 68; Resp 18; Pulse Ox 97% on R/A; wh 01:15 BP 142 / 100; Pulse 66; Resp 18; Pulse Ox 97% on R/A; wh 10/17 22:56 Body Mass Index 30.13 (95.25 kg, 177.80 cm) ks7 MDM: 10/17 22:55 Patient medically screened. kb 23:01 Data reviewed: vital signs, nurses notes. Data interpreted: Pulse oximetry: on room air kb is 98 %. Interpretation: normal. 10/18 01:00 Counseling: I had a detailed discussion with the patient and/or guardian regarding: the kb historical points, exam findings, and any diagnostic results supporting the discharge/admit diagnosis, lab results, radiology results, the need for outpatient follow up, a urologist, to return to the emergency department if symptoms worsen or persist or if there are any questions or concerns that arise at home. 10/17 22:59 Order name: Basic Metabolic Panel; Complete Time: 23:46 kb 10/17 22:59 Order name: CBC with Diff; Complete Time: 23:46 kb 10/17 22:59 Order name: Urine Microscopic Only; Complete Time: 23:46 kb 10/17 22:59 Order name: CT Stone Protocol 10/17 23:30 Order name: Urine Dipstick--Ancillary (enter results); Complete Time: 23:46 tt3 10/17 22:59 Order name: IV Saline Lock; Complete Time: 23:14 kb 10/17 22:59 Order name: Labs collected and sent; Complete Time: 23:14 kb 10/17 22:59 Order name: Urine Dipstick-Ancillary (obtain specimen); Complete Time: 23:14 kb Administered Medications: 10/17 23:10 Drug: Zofran (Ondansetron) 4 mg Route: IVP; Site: right antecubital; 10/18 00:29 Follow up: Response: No adverse reaction; Nausea is decreased 10/17 23:12 Drug: morphine 4 mg {Note: RASS 0.} Route: IVP; Site: right antecubital; 10/18 00:29 Follow up: Response: No adverse reaction; Pain is decreased; RASS: Alert and Calm (0) 10/17 23:29 Drug: NS 0.9% 1000 ml Route: IV; Rate: 1000 ml; Site: right antecubital; 10/18 00:29 Follow up: Response: No adverse reaction; IV Status: Completed infusion 00:27 Drug: TORadol 30 mg Route: IVP; Site: right antecubital; 01:16 Follow up: Response: No adverse reaction; Pain is decreased 00:29 Drug: Flomax 0.4 mg Route: PO; 01:16 Follow up: Response: No adverse reaction 00:29 Drug: Magnesium Sulfate 2 grams Route: IVPB; Infused Over: 1 hrs; Site: right antecubital; 01:16 Follow up: Response: No adverse reaction; IV Status: Completed infusion Disposition: 10/19/19 01:00 Discharged to Home. Impression: Calculus of kidney and ureter, Unspecified hydronephrosis. - Condition is Stable. - Discharge Instructions: Kidney Stones, [id number]-Irth, Dietary Guidelines to Help Prevent Kidney Stones. - Prescriptions for Tylenol- Codeine #3 300-30 mg Oral Tablet - take 2 tablets by ORAL route every 6 hours As needed; 16 tablet. Zofran 4 mg Oral Tablet - take 1 tablet by ORAL route every 6 hours As needed; 20 tablet. Flomax 0.4 mg Oral Capsule, Sust. Release 24 hr - take 1 capsule by ORAL route once daily 1/2 hour following the same meal each day; 10 capsule. Diclofenac Sodium 75 mg Oral Tablet, Delayed Release (E.C.) - take 1 tablet by ORAL route 2 times per day As needed; 30 tablet. - Medication Reconciliation Form, Thank You Letter, Antibiotic Education, Prescription Opioid Use form. - Follow up: Emergency Department; When: As needed; Reason: Worsening of condition. Follow up: Private Physician; When: 2 - 3 days; Reason: Recheck today's complaints, Continuance of care, Re-evaluation by your physician. Follow up: Mustapha Rene MD; When: 2 - 3 days; Reason: Recheck today's complaints. Signatures: Dispatcher [employer] EDID Kami Serrato, PEACE OFFICER-C PEACE OFFICER-Shirley Hardwick RN RN Gisela Turcios Nazanin Schaeffer RN RN ks7 Corrections: (The following items were deleted from the chart) 01: 01:00 10/19/2019 01:00 Discharged to Home. Impression: Calculus of kidney and ureter; kb Unspecified hydronephrosis. Condition is Stable. Forms are Medication Reconciliation Form, Thank You Letter, Antibiotic Education, Prescription Opioid Use. Follow up: Emergency Department; When: As needed; Reason: Worsening of condition. Follow up: Private Physician; When: 2 - 3 days; Reason: Recheck today's complaints, Continuance of care, Re-evaluation by your physician. kb 01:18 01:01 10/19/2019 01:00 Discharged to Home. Impression: Calculus of kidney and ureter; wh Unspecified hydronephrosis. Condition is Stable. Discharge Instructions: Kidney Stones, Desb-bj-Iixy, Dietary Guidelines to Help Prevent Kidney Stones. Prescriptions for Tylenol-Codeine #3 300-30 mg Oral Tablet - take 2 tablets by ORAL route every 6 hours As needed; 16 tablet, Zofran 4 mg Oral Tablet - take 1 tablet by ORAL route every 6 hours As needed; 20 tablet, Flomax 0.4 mg Oral Capsule, Sust. Release 24 hr - take 1 capsule by ORAL route once daily 1/2 hour following the same meal each day; 10 capsule, Diclofenac Sodium 75 mg Oral Tablet, Delayed Release (E.C.) - take 1 tablet by ORAL route 2 times per day As needed; 30 tablet. and Forms are Medication Reconciliation Form, Thank You Letter, Antibiotic Education, Prescription Opioid Use. Follow up: Emergency Department; When: As needed; Reason: Worsening of condition. Follow up: Private Physician; When: 2 - 3 days; Reason: Recheck today's complaints, Continuance of care, Re-evaluation by your physician. Follow up: Mustapha Rene; When: 2 - 3 days; Reason: Recheck today's complaints. kb
--- NOTE | 2019-10-19 01:01 | ER ---
Nurse's Notes [facility] Name: Aston Scanlon Age: 44 yrs Sex: Male : 1975 Arrival Date: 10/18/2019 Time: 22:47 Bed 15 Private MD: Diagnosis: Calculus of kidney and ureter;Unspecified hydronephrosis Presentation: 10/17 22:56 Chief complaint: Patient states: RLQ pain, " I think I have a kidney stone'. ks7 Coronavirus screen: Client denies travel out of the [place] in the last 14 days. At this time, the client does not indicate any symptoms associated with coronavirus-19. The client denies any previous COVID testing. Ebola Screen: Patient negative for fever greater than or equal to 101.5 degrees Fahrenheit, and additional compatible Ebola Virus Disease symptoms Patient denies exposure to infectious person. Patient denies travel to an Ebola-affected area in the 21 days before illness onset. Initial Sepsis Screen: Does the patient meet any 2 criteria? No. Patient's initial sepsis screen is negative. Does the patient have a suspected source of infection? No. Patient's initial sepsis screen is negative. Risk Assessment: Do you want to hurt yourself or someone else? Patient reports no desire to harm self or others. Onset of symptoms was October 12, 2019. 22:56 Method Of Arrival: Ambulatory ks7 22:56 Acuity: CORDELL 3 ks7 Triage Assessment: 23:00 General: Appears in no apparent distress. uncomfortable, Behavior is calm, cooperative. ks7 Pain: Complains of pain in abdomen and right lower quadrant Pain currently is 5 out of 10 on a pain scale. Quality of pain is described as sharp, Pain began 2-3 days ago. GI: Abdomen is tender to palpation in right lower quadrant Reports Pain is 5 out of 10 on a pain scale. Historical: - Allergies: 23:00 No Known Allergies; ks7 - Home Meds: 23:00 lisinopril 20 mg Oral tab 1 tab once daily [Active]; ks7 - PMHx: 23:00 Hypertension; Kidney stones; ks7 - PSHx: 23:00 Appendectomy; ks7 - Immunization history:: Adult Immunizations up to date. - Social history:: Smoking status: Reported history of juuling and/or vaping. Patient uses. Screenin:02 Abuse screen: Denies threats or abuse. Denies injuries from another. Nutritional ks7 screening: No deficits noted. Tuberculosis screening: No symptoms or risk factors identified. Fall Risk None identified. Assessment: 23:02 GI: Bowel sounds present X 4 quads. Reports lower abdominal pain. ks7 23:36 Pain: Complains of pain in right lower quadrant Pain currently is 4 out of 10 on a pain ks7 scale. Quality of pain is described as nagging Current management is with. 23:37 Reassessment: pt's daughter Maria Guadalupe Perry. [phone] please update her with plan of ks7 care. Will come pick her up if dc'd home. 10/18 00:37 Reassessment: Patient appears in no apparent distress at this time. Patient and/or family updated on plan of care and expected duration. Pain level reassessed. Patient is alert, oriented x 3, equal unlabored respirations, skin warm/dry/pink. 01:17 Reassessment: Patient appears in no apparent distress at this time. No changes from previously documented assessment. Patient and/or family updated on plan of care and expected duration. Pain level reassessed. Patient is alert, oriented x 3, equal unlabored respirations, skin warm/dry/pink. Patient states feeling better. Patient states symptoms have improved. Vital Signs: 10/17 22:56 BP 139 / 105; Pulse 79; Resp 18; Temp 98.2(O); Pulse Ox 98% on R/A; Weight 95.25 kg; ks7 Height 5 ft. 10 in. (177.80 cm); Pain 5/10; 23:33 BP 148 / 103; Pulse 74; Resp 18; Pulse Ox 97% on R/A; Pain 4/10; ks7 10/18 00:37 BP 146 / 105; Pulse 68; Resp 18; Pulse Ox 97% on R/A; 01:15 BP 142 / 100; Pulse 66; Resp 18; Pulse Ox 97% on R/A; 10/17 22:56 Body Mass Index 30.13 (95.25 kg, 177.80 cm) ks7 ED Course: 10/17 22:47 Patient arrived in ED. cl3 22:54 Gisela Romero is Primary Nurse. wh 22:55 Kami Serrato FNP-C [facility]. kb 22:55 Kory Romo MD is Attending Physician. kb 22:56 Primary Nurse role handed off by Gisela Romero ks7 22:56 Nazanin Schaeffer, DELISA is Primary Nurse. ks7 22:59 Triage completed. ks7 23:00 Arm band placed on right wrist. ks7 23:02 Patient has correct armband on for positive identification. Bed in low position. Call ks7 light in reach. Side rails up X2. 23:02 No provider procedures requiring assistance completed. ks7 23:10 Initial lab(s) drawn, by tn, sent to lab. Inserted saline lock: 20 gauge in right bb antecubital area, using aseptic technique. Blood collected. 23:[address] 23:30 CT Stone Protocol In Process Unspecified. [facility] 10/18 01:01 Mustapha Rene MD is Referral Physician. kb 01:17 IV discontinued, intact, bleeding controlled, No redness/swelling at site. Administered Medications: 10/17 23:10 Drug: Zofran (Ondansetron) 4 mg Route: IVP; Site: right antecubital; 10/18 00:29 Follow up: Response: No adverse reaction; Nausea is decreased 10/17 23:12 Drug: morphine 4 mg {Note: RASS 0.} Route: IVP; Site: right antecubital; 10/18 00:29 Follow up: Response: No adverse reaction; Pain is decreased; RASS: Alert and Calm (0) 10/17 23:29 Drug: NS 0.9% 1000 ml Route: IV; Rate: 1000 ml; Site: right antecubital; 10/18 00:29 Follow up: Response: No adverse reaction; IV Status: Completed infusion 00:27 Drug: TORadol 30 mg Route: IVP; Site: right antecubital; 01:16 Follow up: Response: No adverse reaction; Pain is decreased 00:29 Drug: Flomax 0.4 mg Route: PO; 01:16 Follow up: Response: No adverse reaction 00:29 Drug: Magnesium Sulfate 2 grams Route: IVPB; Infused Over: 1 hrs; Site: right antecubital; 01:16 Follow up: Response: No adverse reaction; IV Status: Completed infusion Outcome: 01:00 Discharge ordered by MD. ruby 01:17 Discharged to home ambulatory. 01:17 Condition: stable 01:17 Discharge instructions given to patient, Instructed on discharge instructions, follow up and referral plans. no drinking with medication, no driving heavy equipment, medication usage, urine strainer, POC Demonstrated understanding of instructions, follow-up care, medications, POC Prescriptions given X 4. 01:18 Patient left the ED. Signatures: Dispatcher [employer] EDMS Kami Serrato, GAUGE MAKER-C GAUGE MAKER-Shirley Hardwick, RN RN Gisela Turcios Charde cl3 Nazanin Schaeffer, RN RN ks7
[2019-10-19 01:25] VITALS: TEMP 98.2
[2019-10-19 01:26] VITALS: O2SAT 97
[2019-10-19 01:29] VITALS: BP 142/100
--- NOTE | 2019-10-21 11:22 | RAD REPORT ---
EXAM DESCRIPTION: Stone Protocol CLINICAL HISTORY: 44-year-old male with flank pain. COMPARISON: 12/06/2018. TECHNIQUE: CT of the abdomen and pelvis was performed without intravenous or oral contrast. Multipla leena reformatted images were provided. This exam was performed according to our departmental dose opti mization program which includes use of automated exposure control, adjustment of the mA and/or kV acc ording to patient size and/or use of iterative reconstruction technique. FINDINGS: Evaluation of solid organ pathology is limited secondary to lack of intravenous contrast. Within these limitations, the following observations are made. Chest: Evaluation through the lung bases reveals no focal opacity, pleural effusion or pneumothorax. Heart size is within normal limits. No pericardial effusion. Abdomen and pelvis: The RIGHT kidney reveals moderate to severe hydronephrosis and hydroureter second dulce to distal ureteral calculus measuring 4 mm, (series 201, image 110). The liver, gallbladder, pancreas, spleen, and bilateral adrenal glands are otherwise within normal li mits. Two foci of calcification present within the dependent proximal gallbladder measuring 5 mm. The gallbladder appears to be within normal limits noncontrast CT examination without gallbladder wall t hickening or pericholecystic fluid. Punctate foci and subcentimeter foci of calcification present within the bilateral kidneys compatible with multiple nephrolithiasis. On the RIGHT the largest focus of calcification measures 6 mm. The LE FT kidney reveals no hydronephrosis or hydroureter. The prostate gland is enlarged containing diffuse and centralized calcification measuring up to 3.5 x 5.5 cm, (series 201, image 139). Thickened appearance of the bladder wall may be secondary to incomp lete distention, however can be seen in the setting of infectious or inflammatory process. Please cor relate with laboratory values. The vessels are normal in caliber. No abdominopelvic lymph nodes are noted to be pathologically enlarged by CT measurement criteria. The bowel is within normal limits without abnormal bowel wall thickness or bowel dilation. Diverticul ar disease without findings to suggest diverticulitis. No free air. No free abdominopelvic fluid collections. The appendix is not identified. The osseous structures are within normal limits. IMPRESSION: 1. Moderate to severe hydronephrosis of the LEFT kidney secondary to distal obstructing calculus measuring 4 mm. 2. Thickened appearance of the bladder wall may be secondary to incomplete distention, however can be seen in the setting of infectious or inflammatory process. Please correlate with laboratory values. 3. Enlarged prostate gland with diffuse and centralized calcification. 4. Multiple calculi present within the bilateral renal pelvis RIGHT greater than LEFT. 5. Cholelithiasis. 6. Diverticular disease without findings to suggest diverticulitis. Electronically signed by: Kayla Dotson MD 10/18/2019 11:45 PM CDT Due to temporary technical issues with the PACS/Fluency reporting system, reports are being signed by the in house radiologist without review as a courtesy to ensure prompt reporting. The interpreting r adiologist is fully responsible for the content of the report.
== END 2019-10-19 01:18 | disposition home or self-care (01) ==
LOC: ER 22:44
DX: N13.2 Hydronephrosis with renal and ureteral calculous obstruction (principal); I10 Essential (primary) hypertension; Z87.442 Personal history of urinary calculi; Z87.891 Personal history of nicotine dependence
CPT/HCPCS: 96365; 96361; 85025; 80048; 36415; 76377; 74176; 96375; 99284; J3475; J7030; J2405; 81003; 81015

== ENCOUNTER 2020-11-16 14:03 | Emergency (ER) | payer OTHER ==
--- OUTSIDE RECORDS SUMMARY | 2020-11-16 14:05 | XMS REPORT | Continuity of Care Document ---
:1975 Author Organization [facility] t Address [address] [place] [address] Care Team Providers Name Role Phone Handy [...] ID 2018-11-16 2018-11-19 Office LIBRA Murrell [id number] [id number] 08:29:23 08:44:27 Visit [facility] [id number] Dez Lee [id number] Kev [phone] [address]al [address] Results This patient has no known results.
--- NOTE | 2020-11-16 16:37 | EDPHYS ---
Physician Documentation [facility] Name: Aston Scanlon Age: 45 yrs Sex: Male : 1975 Arrival Date: 11/16/2020 Time: 14:04 Bed Waiting Private MD: ED Physician Houston Gutierrez HPI: 11/16 16:35 This 45 yrs old Male presents to ER via Ambulatory with complaints of r/o kb covid. 16:35 The patient or guardian reports chills, loss of taste and smell, slight cough. Onset: kb The symptoms/episode began/occurred 5 day(s) ago. Severity of symptoms: At their worst the symptoms were mild, in the emergency department the symptoms are unchanged. Modifying factors: The symptoms are alleviated by nothing, the symptoms are aggravated by nothing. Associated signs and symptoms: Pertinent positives: diarrhea, Pertinent negatives: chest pain, ear ache, fever, nausea, rhinorrhea, sore throat, vomiting. The patient has not experienced similar symptoms in the past. The patient has not recently seen a physician. Historical: - Allergies: 14:25 No Known Drug Allergies; hb - Home Meds: 14:25 lisinopril 20 mg Oral tab 1 tab once daily [Active]; hb - PMHx: 14:25 Hypertension; Kidney stones; hb - Immunization history:: Adult Immunizations up to date. - Social history:: Smoking status: Patient denies any tobacco usage or history of. ROS: 16:33 Cardiovascular: Negative for chest pain, palpitations, and edema. kb 16:33 Constitutional: Positive for chills. 16:33 ENT: Positive for loss of taste and smell. 16:33 Respiratory: Positive for cough. 16:33 Abdomen/GI: Positive for diarrhea. 16:33 All other systems are negative. Exam: 16:33 Constitutional: This is a well developed, well nourished patient who is awake, alert, kb and in no acute distress. Head/Face: Normocephalic, atraumatic. ENT: Moist Mucous membranes Respiratory: Respirations even and unlabored. No increased work of breathing, no retractions or nasal flaring. Skin: Warm, dry with normal turgor. Normal color. MS/ Extremity: Pulses equal, no cyanosis. Neurovascular intact. Full, normal range of motion. Neuro: Awake and alert, GCS 15, oriented to person, place, time, and situation. Moves all extremities. Normal gait. Psych: Awake, alert, with orientation to person, place and time. Behavior, mood, and affect are within normal limits. Vital Signs: 14:23 BP 124 / 90; Pulse 84; Resp 16; Temp 98.2(TE); Pulse Ox 96% on R/A; Weight 87.54 kg; hb Height 5 ft. 9 in. (175.26 cm); Pain 0/10; 14:23 Body Mass Index 28.50 (87.54 kg, 175.26 cm) hb MDM: 14:13 Patient medically screened. kb 16:32 Data reviewed: vital signs, nurses notes. Data interpreted: Pulse oximetry: on room air kb is 96 %. Interpretation: normal. Counseling: I had a detailed discussion with the patient and/or guardian regarding: the historical points, exam findings, and any diagnostic results supporting the discharge/admit diagnosis, lab results, the need for outpatient follow up, a family practitioner, to return to the emergency department if symptoms worsen or persist or if there are any questions or concerns that arise at home. 11/16 14:14 Order name: COVID-19 : Document "Date of Symptom Onset" if Symptomatic. kb 11/16 16:33 Order name: SARS-COV-2 RT PCR; Complete Time: 16:36 EDMS Administered Medications: No medications were administered Disposition: 11/17 07:51 Co-signature as Attending Physician, Houston Gutierrez MD I agree with the assessment and hieu plan of care. Disposition Summary: 11/16/20 16:37 Discharge Ordered Location: Home kb Condition: Stable kb Diagnosis - Coronavirus infection, unspecified kb Followup: kb - With: Emergency Department - When: As needed - Reason: Worsening of condition Followup: kb - With: Private Physician - When: 2 - 3 days - Reason: Recheck today's complaints, Continuance of care, Re-evaluation by your physician Discharge Instructions: - Discharge Summary Sheet kb - Viral Respiratory Infection, [id number] kb - COVID-19 kb Forms: - Medication Reconciliation Form kb - Thank You Letter kb - Antibiotic Education kb - Prescription Opioid Use kb Signatures: Dispatcher [employer] EDMS Kami Serrato, AUTOMOTIVE UPHOLSTERER-C COURTNEY-Houston Flaherty MD MD cha Baxter, Heather, RN RN hb Corrections: (The following items were deleted from the chart) 11/16 14:59 14:14 CORONAVIRUS ordered. EDMS EDMS
--- NOTE | 2020-11-16 16:37 | ER ---
Nurse's Notes [facility] Name: Aston Scanlon Age: 45 yrs Sex: Male : 1975 Arrival Date: 11/16/2020 Time: 14:04 Bed Waiting Private MD: Diagnosis: Coronavirus infection, unspecified Presentation: 11/16 14:23 Chief complaint: Loss of taste and smell, cough, N/D, and chills, x 5 days. Coronavirus hb screen: Client presents with at least one sign or symptom that may indicate coronavirus-19. Standard/surgical mask placed on the client. Provider contacted for isolation considerations. Ebola Screen: No symptoms or risks identified at this time. Risk Assessment: Do you want to hurt yourself or someone else? Patient reports no desire to harm self or others. Onset of symptoms was November 11, 2020. 14:23 Method Of Arrival: Ambulatory hb 14:23 Acuity: CORDELL 4 hb Historical: - Allergies: 14:25 No Known Drug Allergies; hb - Home Meds: 14:25 lisinopril 20 mg Oral tab 1 tab once daily [Active]; hb - PMHx: 14:25 Hypertension; Kidney stones; hb - Immunization history:: Adult Immunizations up to date. - Social history:: Smoking status: Patient denies any tobacco usage or history of. Vital Signs: 14:23 BP 124 / 90; Pulse 84; Resp 16; Temp 98.2(TE); Pulse Ox 96% on R/A; Weight 87.54 kg; hb Height 5 ft. 9 in. (175.26 cm); Pain 0/10; 14:23 Body Mass Index 28.50 (87.54 kg, 175.26 cm) hb ED Course: 14:04 Patient arrived in ED. am2 14:13 [facility]C [facility] kb 14:13 Houston Gutierrez MD is Attending Physician. kb 14:25 Triage completed. hb 14:25 Arm band placed on. hb Administered Medications: No medications were administered Outcome: 16:37 Discharge ordered by . kb 16:49 Discharged to home ambulatory. hb 16:49 Condition: stable 16:49 Discharge instructions given to patient, Instructed on discharge instructions, follow up and referral plans. medication usage, Demonstrated understanding of instructions, follow-up care, medications. 16:51 Patient left the ED. hb Signatures: Kami Serrato, ANDREAS VALDEZ-Lanny Lopes, RN RN Rubi Connolly
[2020-11-16 17:01] VITALS: BP 124/90; TEMP 98.2; O2SAT 96
== END 2020-11-16 16:51 | disposition home or self-care (01) ==
LOC: ER 14:03
DX: U07.1 COVID-19 (principal); I10 Essential (primary) hypertension; Z87.442 Personal history of urinary calculi
CPT/HCPCS: 99281; U0003

== ENCOUNTER 2020-11-19 08:28 | Emergency (ER) | payer OTHER ==
--- OUTSIDE RECORDS SUMMARY | 2020-11-19 08:30 | XMS REPORT | Continuity of Care Document ---
:1975 Author Organization [facility] t Address [address] [place] [address] Care Team Providers Name Role Phone Handy [...] ID 2018-11-16 2018-11-19 Office LIBRA Murrell [id number] 08:29:23 08:44:27 Visit [facility] [id number] Dez Lee [id number] Kev [phone] nal 044 Office [address] One Results This patient has no known results.
--- NOTE | 2020-11-19 09:05 | RAD REPORT ---
EXAM DESCRIPTION: RAD - Chest Pa And Lat (2 Views) - 11/19/2020 9:00 am CLINICAL HISTORY: Cough;Dyspnea COMPARISON: <Comparisons> FINDINGS: Lines: None. Lungs: Mild to moderate patchy multifocal airspace disease. Pleural: No significant pleural effusions or pneumothorax. Cardiac: The heart size is within normal limits. Bones: No acute fractures. Other: IMPRESSION: Mild to moderate patchy airspace disease concerning for multifocal pneumonia, including Covid-19.
[2020-11-19 09:40] LABS: Basophils % 0.2 % (0-1.3); Hematocrit 48.5 % (39.6-49.0); Lymphocytes % 8.4 % (15.3-44.8); MPV 8.9 fL (7.6-11.3); RBC Red Blood Cell Count 6.41 M/uL (4.33-5.43)
[2020-11-19 09:46] LABS: Protime INR 1.13
[2020-11-19] MEDS ORDERED: FAMOTIDINE 20 MG/2 ML VIAL IV ONE (09:48)
[2020-11-19] MEDS ORDERED: ACETAMINOPHEN 500 MG TAB ONE (09:48)
[2020-11-19] MEDS ORDERED: CEFTRIAXONE/SWI 1gm 1 GM/10 ML SYR ONE (09:49)
[2020-11-19] MEDS ORDERED: ALBUTEROL INHALER 60 PUFF/8 GM IH ONE (09:49)
[2020-11-19] MEDS ORDERED: CASIRIVIMAB/IMDEVIMAB 10 ML VIAL ONE (09:50)
[2020-11-19] MEDS ORDERED: NA CHLORIDE 0.9% 0 ML ONE (09:50)
[2020-11-19] MEDS ORDERED: NA CHLORIDE 0.9% 250 ML ONE (09:55)
[2020-11-19 09:58] LABS: ALT/SGPT 22 U/L (12-78); AST/SGOT 16 U/L (15-37); Albumin 3.3 g/dL (3.4-5.0); Alkaline Phosphatase 63 U/L (45-117); BUN Blood Urea Nitrogen 15 mg/dL (7-18); Bicarbonate 26 mmol/L (21-32); Bilirubin Direct 0.2 mg/dL (0-0.2); Bilirubin Total 0.5 mg/dL (0.2-1.0); Ferritin 52.4 ng/mL (26-388); Glucose Level 91 mg/dL (74-106); Magnesium 1.9 mg/dL (1.8-2.4); NT PRO-BNP 33 pg/mL (<125); Potassium 3.5 mmol/L (3.5-5.1); Protein, Total 7.9 g/dL (6.4-8.2); Sodium Level 139 mmol/L (136-145); Troponin (Emerg Dept Use Only) < 0.02 ng/mL (0.0-0.045)
[2020-11-19 10:17] LABS: Blood Morphology Comment NOT SEEN (NOT SEEN); Platelet Estimate ADEQ
[2020-11-19] MEDS ORDERED: AZITHROMYCIN IV 500 MG in NA CHLORIDE 0.9% 250 ML IVPB ONE (10:30)
--- NOTE | 2020-11-19 10:47 | RAD REPORT ---
EXAM DESCRIPTION: CT - Chest For Pe Angio - 11/19/2020 10:33 am CLINICAL HISTORY: Cough;Dyspnea COMPARISON: No comparisons FINDINGS: Chest Wall: No suspicious thyroid nodules or pathologic lymphadenopathy. Lungs: Moderate patchy bilateral airspace disease. Pleura: No significant effusions or pneumothorax. Mediastinum/mayank: No pathologic lymphadenopathy. Hiatal hernia which is small. Pulmonary arteries/Aorta: No filling defect identified. No aortic aneurysm. Heart: No significant pericardial effusion. Normal heart size. Upper abdomen: No acute abnormality. Bones: No acute abnormality. IMPRESSION: Negative for pulmonary embolism. Moderate airspace disease bilaterally concerning for mu ltifocal pneumonia, including Covid-19.
--- NOTE | 2020-11-19 11:02 | ER ---
Nurse's Notes [facility] Name: Aston Scanlon Age: 45 yrs Sex: Male : 1975 Arrival Date: 11/19/2020 Time: 08:31 Bed 5 Private MD: Diagnosis: Coronavirus infection, unspecified;Pneumonia due to SARS-associated coronavirus;Dyspnea;Fever, unspecified Presentation: 11/19 08:47 Chief complaint: Patient states: Covid + x 4 days, increased SOB x 2 days, worse at jl7 night. Coronavirus screen: Vaccine status: Patient reports being unvaccinated. cough unrelated to allergies, difficulty breathing, fatigue, fever, Client reports previous positive COVID test result. results are located within the EHR/EMR. Staff notified of need for isolation. Ebola Screen: No symptoms or risks identified at this time. Initial Sepsis Screen: Does the patient meet any 2 criteria? No. Patient's initial sepsis screen is negative. Does the patient have a suspected source of infection? No. Patient's initial sepsis screen is negative. Risk Assessment: Do you want to hurt yourself or someone else? Patient reports no desire to harm self or others. 08:47 Method Of Arrival: Ambulatory jl7 08:47 Acuity: CORDELL 3 jl7 Historical: - Allergies: 08:51 No Known Allergies; jl7 - Home Meds: 08:51 lisinopril 20 mg Oral tab 1 tab once daily [Active]; jl7 - PMHx: 08:51 Hypertension; Kidney stones; jl7 - PSHx: 08:51 None; jl7 - Immunization history:: Adult Immunizations not up to date, Client reports having NOT received the Covid vaccine. - Social history:: Smoking status: Patient denies any tobacco usage or history of. - Family history:: not pertinent. Screenin:43 Abuse screen: Denies threats or abuse. Denies injuries from another. Nutritional sv screening: No deficits noted. Tuberculosis screening: No symptoms or risk factors identified. Fall Risk None identified. Assessment: 09:40 General: Appears in no apparent distress. ill, Behavior is calm, cooperative. Pain: hb Pain currently is 8 out of 10 on a pain scale. Neuro: Level of Consciousness is awake, alert, obeys commands, Oriented to person, place, time, situation. Cardiovascular: Patient's skin is warm and dry. Rhythm is sinus tachycardia. Respiratory: Reports shortness of breath at rest on exertion cough that is non-productive, Airway is patent Respiratory effort is even, unlabored, Respiratory pattern is tachypnea. GI: Reports nausea. : No signs and/or symptoms were reported regarding the genitourinary system. EENT: No signs and/or symptoms were reported regarding the EENT system. Derm: Skin is dry, Skin is flushed, Skin temperature is warm. Musculoskeletal: No signs and/or symptoms reported regarding the musculoskeletal system. 10:45 Reassessment: Patient appears in no apparent distress at this time. No changes from hb previously documented assessment. Patient and/or family updated on plan of care and expected duration. Pain level reassessed. 11:45 Reassessment: Patient appears in no apparent distress at this time. No changes from hb previously documented assessment. Patient and/or family updated on plan of care and expected duration. Pain level reassessed. 12:45 Reassessment: Patient appears in no apparent distress at this time. No changes from hb previously documented assessment. Patient and/or family updated on plan of care and expected duration. Pain level reassessed. 13:45 Reassessment: Patient appears in no apparent distress at this time. No changes from hb previously documented assessment. Patient and/or family updated on plan of care and expected duration. Pain level reassessed. Vital Signs: 08:47 BP 125 / 89; Pulse 105; Resp 20; Temp 99.4; Pulse Ox 95% ; Weight 87.54 kg; Height 5 jl7 ft. 9 in. (175.26 cm); Pain 8/10; 09:40 BP 141 / 89; Pulse 109; Resp 37; Pulse Ox 97% on R/A; hb 10:15 BP 133 / 86; Pulse 107; Resp 27; Pulse Ox 96% on R/A; sv 11:30 BP 128 / 89; Pulse 105; Resp 25; Pulse Ox 95% ; sv 12:30 BP 124 / 90; Pulse 92; Resp 27; Pulse Ox 94% ; sv 13:30 BP 122 / 94; Pulse 90; Resp 23; Pulse Ox 92% ; sv 08:47 Body Mass Index 28.50 (87.54 kg, 175.26 cm) jl7 ED Course: 08:31 Patient arrived in ED. rg4 08:41 Triage completed. jl7 08:46 Houston Gutierrez MD is Attending Physician. hieu 08:51 Arm band placed on right wrist. jl7 08:58 Chest Pa And Lat (2 Views) XRAY In Process Unspecified. EDMS 09:23 Inserted saline lock: 20 gauge in right antecubital area, using aseptic technique. ds4 Blood collected. 09:38 Lanny Nazario, RN is Primary Nurse. hb 09:40 Patient has correct armband on for positive identification. Bed in low position. Call [facility] light in reach. Side rails up X 1. Warm blanket given. Pillow given. ekg monitor on. Pulse ox on. NIBP on. 09:41 Initial lab(s) drawn, by ED staff, sent to lab. 5 09:43 Basic Metabolic Panel Sent. sv 09:43 Troponin (emerg Dept Use Only) Sent. sv 09:43 PT-INR Sent. sv 09:43 NT PRO-BNP Sent. sv 09:43 Magnesium Sent. sv 09:43 LFT's Sent. sv 09:43 CBC with Diff Sent. sv 10:06 EKG done, by ED staff, reviewed by Houston Gutierrez MD. 5 10:32 CT Chest For PE Angio In Process Unspecified. EDMS 11:01 Prakash Gentile MD is Referral Physician. hieu 11:26 CRP Sent. 5 Administered Medications: 09:39 Drug: Albuterol HFA Inhaler 4 puffs Route: Inhalation; hb 10:25 Follow up: Response: No adverse reaction hb 09:39 Drug: Pepcid (famotidine) 40 mg Route: IVP; Site: right antecubital; hb 09:43 Follow up: Response: No adverse reaction sv 09:39 Drug: Rocephin (cefTRIAXone) 1 grams Route: IV; Rate: per protocol; Site: right hb antecubital; 09:41 Follow up: Response: No adverse reaction; IV Status: Completed infusion; IV Intake: 10mlsv 09:39 Drug: Tylenol 1000 mg Route: PO; hb 09:54 Follow up: Response: No adverse reaction sv 09:43 CANCELLED (Physician Discretion): Ivermectin 15 mg PO once; as a single dose sv 09:57 Drug: REGEN-COV Dose Pack 120 mg/mL-120 mg/mL (EUA) 1 vials {Note: 600 mg given IVPB..} sv Route: IV; Rate: per protocol; Site: right antecubital; 11:00 Follow up: Response: No adverse reaction; IV Status: Completed infusion; IV Intake: hb 250ml 12:01 Drug: Zithromax (azithromycin) 500 mg Route: IVPB; Infused Over: 1 hrs; Site: right hb antecubital; 18:35 Follow up: Response: No adverse reaction; IV Status: Completed infusion; IV Intake: hb 250ml 12:13 Drug: Aspirin Chewable Tablet 324 mg Route: PO; hb 13:55 Follow up: Response: No adverse reaction ss 12:13 Drug: [place] (HYDROcodone-acetaminophen) 10 mg-325 mg 1 tabs Route: PO; hb 13:50 Follow up: Response: No adverse reaction hb 13:00 Drug: predniSONE 60 mg Route: PO; hb 13:55 Follow up: Response: Medication administered at discharge. hb 13:02 Drug: SOLU-Medrol (methylPrednisoLONE) 125 mg Route: IVP; Site: right antecubital; hb 13:15 Follow up: Response: Medication administered at discharge. hb Intake: 09:41 IV: 10ml; Total: 10ml. sv 11:00 IV: 250ml; Total: 260ml. hb 18:35 IV: 250ml; Total: 510ml. hb Outcome: 11:01 Discharge ordered by . hieu 14:06 Discharged to home ambulatory. hb 14:06 Condition: stable 14:06 Discharge instructions given to patient, Instructed on discharge instructions, follow up and referral plans. medication usage, Demonstrated understanding of instructions, follow-up care, medications, Prescriptions given X x 7 14:23 Patient left the ED. hb Signatures: Dispatcher [employer] EDNirmala Max RN RN sv Anderson, Corey, MD MD cha Smirch, Shelby, RN RN ss Swanson, Donovan ds4 Lanny Nazario RN RN hb Garcia, Rubi rg4 Martinez, Maria [facility] Khris Licea RN RN jl7 Corrections: (The following items were deleted from the chart) 08:46 08:39 Chief complaint: Patient states: While transferring pt from [facility] to hospital jl7 bed, reporting left low back pain jl7 08:46 08:39 Coronavirus screen: Vaccine status: Patient reports receiving the 2nd dose of the jl7 covid vaccine. Date April 17, 2020 Moderna [facility] 08:39 Ebola Screen: No symptoms or risks identified at this time. [place] [id number] [phone] 08:39 Initial Sepsis Screen: Does the patient meet any 2 criteria? No. Patient's [facility] initial sepsis screen is negative. Does the patient have a suspected source of infection? No. Patient's initial sepsis screen is negative. [facility] 08:39 Risk Assessment: Do you want to hurt yourself or someone else? Patient reports no [facility] desire to harm self or others. [facility] 08:39 Onset of symptoms was November 19, 2020 [place] [id number] 08:39 Method Of Arrival: Ambulatory [place] [id number] 08:39 BP 161 / 104; Pulse 101bpm; Resp 16bpm; Pulse Ox 100%; Temp 98.6F; 58.06 kg; 7 Height 5 ft.; BMI: 25.0; [facility] 08:39 Acuity: CORDELL 3 [place] [id number] 08:39 Immunization history: Adult Immunizations up to date, Client reports receiving [facility] the 2nd dose of the Covid vaccine, [facility] 08:39 Social history: Smoking status: Patient denies any tobacco usage or history of. [facility]
--- NOTE | 2020-11-19 11:02 | EDPHYS ---
Physician Documentation [facility] Name: Aston Scanlon Age: 45 yrs Sex: Male : 1975 Arrival Date: 11/19/2020 Time: 08:31 Bed 5 Private MD: Houston Lozano HPI: 11/19 09:08 This 45 yrs old Male presents to ER via Ambulatory with complaints of hieu Breathing Difficulty. 09:08 The patient has shortness of breath at rest, with light activity. Onset: The hieu symptoms/episode began/occurred 5 day(s) ago. Duration: The symptoms are continuous, and are steadily getting worse. Associated signs and symptoms: The patient has no apparent associated signs or symptoms. The patient has not experienced similar symptoms in the past. Historical: - Allergies: 08:51 No Known Allergies; jl7 - Home Meds: 08:51 lisinopril 20 mg Oral tab 1 tab once daily [Active]; jl7 - PMHx: 08:51 Hypertension; Kidney stones; jl7 - PSHx: 08:51 None; jl7 - Immunization history:: Adult Immunizations not up to date, Client reports having NOT received the Covid vaccine. - Social history:: Smoking status: Patient denies any tobacco usage or history of. - Family history:: not pertinent. ROS: 09:08 Constitutional: Negative for fever, chills, and weight loss, Eyes: Negative for injury, hieu pain, redness, and discharge, ENT: Negative for injury, pain, and discharge, Neck: Negative for injury, pain, and swelling, Cardiovascular: Negative for chest pain, palpitations, and edema, Abdomen/GI: Negative for abdominal pain, nausea, vomiting, diarrhea, and constipation, Back: Negative for injury and pain, : Negative for injury, bleeding, discharge, and swelling, MS/Extremity: Negative for injury and deformity, Skin: Negative for injury, rash, and discoloration, Neuro: Negative for headache, weakness, numbness, tingling, and seizure, Psych: Negative for depression, anxiety, suicide ideation, homicidal ideation, and hallucinations, Allergy/Immunology: Negative for hives, rash, and allergies, Endocrine: Negative for neck swelling, polydipsia, polyuria, polyphagia, and marked weight changes, Hematologic/Lymphatic: Negative for swollen nodes, abnormal bleeding, and unusual bruising. 09:08 Respiratory: Positive for dyspnea on exertion, shortness of breath, wheezing, inspiratory, expiratory. Exam: 09:08 Constitutional: This is a well developed, well nourished patient who is awake, alert, hieu and in no acute distress. Head/Face: Normocephalic, atraumatic. Eyes: Pupils equal round and reactive to light, extra-ocular motions intact. Lids and lashes normal. Conjunctiva and sclera are non-icteric and not injected. Cornea within normal limits. Periorbital areas with no swelling, redness, or edema. ENT: Nares patent. No nasal discharge, no septal abnormalities noted. Tympanic membranes are normal and external auditory canals are clear. Oropharynx with no redness, swelling, or masses, exudates, or evidence of obstruction, uvula midline. Mucous membranes moist. Neck: Trachea midline, no thyromegaly or masses palpated, and no cervical lymphadenopathy. Supple, full range of motion without nuchal rigidity, or vertebral point tenderness. No Meningismus. Chest/axilla: Normal chest wall appearance and motion. Nontender with no deformity. No lesions are appreciated. Cardiovascular: Regular rate and rhythm with a normal S1 and S2. No gallops, murmurs, or rubs. Normal PMI, no JVD. No pulse deficits. Abdomen/GI: Soft, non-tender, with normal bowel sounds. No distension or tympany. No guarding or rebound. No evidence of tenderness throughout. Back: No spinal tenderness. No costovertebral tenderness. Full range of motion. Male : Normal genitalia with no discharge or lesions. Skin: Warm, dry with normal turgor. Normal color with no rashes, no lesions, and no evidence of cellulitis. MS/ Extremity: Pulses equal, no cyanosis. Neurovascular intact. Full, normal range of motion. Neuro: Awake and alert, GCS 15, oriented to person, place, time, and situation. Cranial nerves II-XII grossly intact. Motor strength 5/5 in all extremities. Sensory grossly intact. Cerebellar exam normal. Normal gait. Psych: Awake, alert, with orientation to person, place and time. Behavior, mood, and affect are within normal limits. 09:08 Respiratory: mild respiratory distress is noted, Respirations: labored breathing, that is mild, Breath sounds: decreased breath sounds, rhonchi, wheezing: expiratory Respiratory rate: 20 10:14 ECG was reviewed by the Attending Physician. [facility] Vital Signs: 08:47 BP 125 / 89; Pulse 105; Resp 20; Temp 99.4; Pulse Ox 95% ; Weight 87.54 kg; Height 5 jl7 ft. 9 in. (175.26 cm); Pain 8/10; 09:40 BP 141 / 89; Pulse 109; Resp 37; Pulse Ox 97% on R/A; hb 10:15 BP 133 / 86; Pulse 107; Resp 27; Pulse Ox 96% on R/A; sv 11:30 BP 128 / 89; Pulse 105; Resp 25; Pulse Ox 95% ; sv 12:30 BP 124 / 90; Pulse 92; Resp 27; Pulse Ox 94% ; sv 13:30 BP 122 / 94; Pulse 90; Resp 23; Pulse Ox 92% ; sv 08:47 Body Mass Index 28.50 (87.54 kg, 175.26 cm) jl7 MDM: 08:53 Patient medically screened. [facility] 09:12 Differential diagnosis: Anxiety Reaction Bronchitis CHF exacerbation, Chronic hieu Obstructive Pulmonary Disease pneumonia, reactive airway disease. Antibiotic administration: Rocephin and Zithromax given. The patient's Wells Deep Vein Thrombosis Score was calculated as follows: Heart Rate >100 BPM (1.5 Pts) Total Score: 0-2 Pts- Low Risk. The patient's pulmonary embolism risk score was calculated as follows: the patients heart rate is greater than 100 beats per minute (1.5 Pts) Total Score: 0-2 points. This patient was found to be at low risk for a pulmonary embolism by using the Well's assessment criteria. Immunization status:. Data reviewed: vital signs, nurses notes, lab test result(s), EKG, radiologic studies, plain films. 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 Test interpretation: by ED physician or midlevel provider: ECG, plain radiologic studies. Counseling: I had a detailed discussion with the patient and/or guardian regarding: the historical points, exam findings, and any diagnostic results supporting the discharge/admit diagnosis, lab results, radiology results, the need for further work-up and treatment in the hospital. 11/19 09:08 Order name: Basic Metabolic Panel [facility] 11/19 09:08 Order name: CBC with Diff [facility] 11/19 09:08 Order name: LFT's [facility] 11/19 09:08 Order name: Magnesium [facility] 11/19 09:08 Order name: NT PRO-BNP [facility] 11/19 09:08 Order name: PT-INR [facility] 11/19 09:08 Order name: Troponin (emerg Dept Use Only) [facility] 11/19 09:08 Order name: D-Dimer; Complete Time: 09:52 hieu 11/19 09:08 Order name: Sed Rate; Complete Time: 10:20 hieu 11/19 09:08 Order name: Ferritin; Complete Time: 10:20 hieu 11/19 09:08 Order name: Basic Metabolic Panel; Complete Time: 10:20 EDMS 11/19 09:08 Order name: CBC with Automated Diff; Complete Time: 10:20 EDMS 11/19 09:08 Order name: Liver (Hepatic) Function; Complete Time: 10:20 EDMS 11/19 09:08 Order name: Magnesium; Complete Time: 10:20 EDMS 11/19 08:36 Order name: Chest Pa And Lat (2 Views) XRAY; Complete Time: 09:52 kb 11/19 09:08 Order name: NT PRO-BNP; Complete Time: 10:20 EDMS 11/19 09:08 Order name: Protime (+INR); Complete Time: 09:52 EDMS 11/19 09:08 Order name: Troponin (Emerg Dept Use Only); Complete Time: 10:20 EDMS 11/19 09:52 Order name: CT Chest For PE Angio; Complete Time: 11:00 hieu 11/19 10:17 Order name: Manual Differential; Complete Time: 10:20 EDMS 11/19 11:01 Order name: CRP; Complete Time: 12:39 hieu 11/19 09:08 Order name: EKG; Complete Time: 09:09 hieu 11/19 09:08 Order name: Cardiac monitoring; Complete Time: 09:20 hieu 11/19 09:08 Order name: EKG - Nurse/Tech; Complete Time: 10:06 hieu 11/19 09:08 Order name: IV Saline Lock; Complete Time: 09:22 hieu 11/19 09:08 Order name: Labs collected and sent; Complete Time: 09:23 hieu 11/19 09:08 Order name: O2 Per Protocol; Complete Time: 09:21 hieu 11/19 09:08 Order name: O2 Sat Monitoring; Complete Time: : [facility] EC:14 Rate is 106 beats/min. Rhythm is regular. QRS [place] is Normal. [place] interval is normal. [facility] QRS interval is normal. QT interval is normal. No Q waves. T waves are Normal. No ST changes noted. Clinical impression: NSR w/ Non-specific ST/T Changes, Sinus tachycardia, and No evidence of ischemia. Interpreted by me. Reviewed by me. Administered Medications: 09:39 Drug: Albuterol HFA Inhaler 4 puffs Route: Inhalation; hb 10:25 Follow up: Response: No adverse reaction hb 09:39 Drug: Pepcid (famotidine) 40 mg Route: IVP; Site: right antecubital; hb 09:43 Follow up: Response: No adverse reaction sv 09:39 Drug: Rocephin (cefTRIAXone) 1 grams Route: IV; Rate: per protocol; Site: right hb antecubital; 09:41 Follow up: Response: No adverse reaction; IV Status: Completed infusion; IV Intake: 10mlsv 09:39 Drug: Tylenol 1000 mg Route: PO; hb 09:54 Follow up: Response: No adverse reaction sv 09:43 CANCELLED (Physician Discretion): Ivermectin 15 mg PO once; as a single dose sv 09:57 Drug: REGEN-COV Dose Pack 120 mg/mL-120 mg/mL (EUA) 1 vials {Note: 600 mg given IVPB..} sv Route: IV; Rate: per protocol; Site: right antecubital; 11:00 Follow up: Response: No adverse reaction; IV Status: Completed infusion; IV Intake: hb 250ml 12:01 Drug: Zithromax (azithromycin) 500 mg Route: IVPB; Infused Over: 1 hrs; Site: right hb antecubital; 18:35 Follow up: Response: No adverse reaction; IV Status: Completed infusion; IV Intake: hb 250ml 12:13 Drug: Aspirin Chewable Tablet 324 mg Route: PO; hb 13:55 Follow up: Response: No adverse reaction ss 12:13 Drug: [place] (HYDROcodone-acetaminophen) 10 mg-325 mg 1 tabs Route: PO; hb 13:50 Follow up: Response: No adverse reaction hb 13:00 Drug: predniSONE 60 mg Route: PO; hb 13:55 Follow up: Response: Medication administered at discharge. hb 13:02 Drug: SOLU-Medrol (methylPrednisoLONE) 125 mg Route: IVP; Site: right antecubital; hb 13:15 Follow up: Response: Medication administered at discharge. hb Disposition Summary: 11/19/20 11:01 Discharge Ordered Location: Home [facility] Problem: new hieu Symptoms: have improved hieu Condition: Stable hieu Diagnosis - Coronavirus infection, unspecified hieu - Pneumonia due to SARS-associated coronavirus hieu - Dyspnea hieu - Fever, unspecified hieu Followup: hieu - With: Private Physician - When: 2 - 3 days - Reason: Recheck today's complaints, Continuance of care, Re-evaluation by your physician Followup: hieu - With: - When: 2 - 3 days - Reason: Recheck today's complaints, Re-evaluation by your physician Discharge Instructions: - Discharge Summary Sheet hieu - Fever, Adult hieu - Community-Acquired Pneumonia, Adult hieu - Viral Respiratory Infection, [id number] hieu - Aspirin and Your Heart [facility] - COVID-19 [facility] - COVID-19 Frequently Asked Questions [place] [id number] Things You Can Do to Manage Your COVID-19 Symptoms at Home - [facility] - COVID-19: Quarantine vs. Isolation - [facility] Forms: - Medication Reconciliation Form [facility] - Thank You Letter [facility] - Antibiotic Education [facility] - Prescription Opioid Use [facility] Prescriptions: - albuterol sulfate 90 mcg/actuation Inhalation HFA aerosol inhaler - inhale 2 puff by INHALATION route every 6 hours; 1 Pump; Refills: 0, Product [facility] Selection Permitted - ivermectin 3 mg Oral tablet - take 4 tablet by ORAL route once daily; 20 tablet; Refills: 0, Product [facility] Selection Permitted - Pepcid 20 mg Oral Tablet - take 1 tablet by ORAL route every 12 hours for 15 days; 30 tablet; Refills: 0, [facility] Product Selection Permitted - Zofran 4 mg Oral Tablet - take 1 tablet by ORAL route every 12 hours As needed; 20 tablet; Refills: 0, [facility] Product Selection Permitted - Singulair 10 mg Oral Tablet - take 1 tablet by ORAL route At bedtime; 20 tablet; Refills: 0, Product [facility] Selection Permitted - Zithromax 500 mg Oral Tablet - take 1 tablet by ORAL route once daily for 5 days; 5 tablet; Refills: 0, [facility] Product Selection Permitted - Prednisone 20 mg Oral Tablet - take 2 tablets by ORAL route once daily for 7 days; 14 tablet; Refills: 0, hieu Product Selection Permitted Signatures: Dispatcher [employer] Nirmala Omer, RN Houston Loyola MD MD cha Baxter, Heather RN DELISA Khris Licea RN RN jl Payton Collins RN ss Corrections: (The following items were deleted from the chart) 08:46 08:39 Immunization history: Adult Immunizations up to date, Client reports receiving jl7 the 2nd dose of the Covid vaccine, 08:46 08:39 Social history: Smoking status: Patient denies any tobacco usage or history of. [facility] jl7 09:39 09:09 Chest Single View+[id number].[id number] ordered. [facility] :43 09:08 Ivermectin 15 mg PO once; as a single dose ordered. on license of [facility] 43 09:43 Ivermectin 15 mg PO once; as a single dose ordered. [facility]
[2020-11-19] MEDS ORDERED: ASPIRIN 81 MG CHEWABLE TABLET ONE (12:26)
[2020-11-19] MEDS ORDERED: HYDROCODONE/APAP 10/325 TAB ONE (12:26)
[2020-11-19] MEDS ORDERED: METHYLPREDNISOLONE 125 MG INJ ONE (14:19)
[2020-11-19] MEDS ORDERED: predniSONE 20 MG TAB ONE (14:19)
[2020-11-19 14:29] VITALS: TEMP 99.4
[2020-11-19 14:36] VITALS: BP 122/94; O2SAT 92
== END 2020-11-19 14:23 | disposition home or self-care (01) ==
LOC: ER 08:28
DX: U07.1 COVID-19 (principal); J12.82 Pneumonia due to coronavirus disease 2019; R50.9 Fever, unspecified; I10 Essential (primary) hypertension
CPT/HCPCS: 36415; 71046; 71275; 80048; 80076; 82728; 83735; 83880; 84484; 85025; 85379; 85610; 85652; 86140; 93005; 96365; 96366; 96367; 96375; 99285; J0456; J0696; J2930; J7050; J7512; Q9967

== ENCOUNTER 2020-11-21 10:31 | Inpatient (IN) | payer OTHER ==
--- OUTSIDE RECORDS SUMMARY | 2020-11-21 10:34 | XMS REPORT | Continuity of Care Document ---
:1975 Author Organization [facility] t Address [address] [place] [address] Care Team Providers Name Role Phone Handy OPWELL, Monty Garces Attending Clinician Problems This patient has no known problems. Allergies, Adverse Reactions, Alerts This patient has no known allergies or adverse reactions. Medications This patient has no known medications. Procedures This patient has no known procedures. Encounters Start End Encounter Admission Attending Care Care Encounter Source Date/Time Date/Time Type Type Clinicians Facility Department ID 2018-11-16 2018-11-19 Office LIBRA Murrell [id number] 08:29:23 08:44:27 Visit [facility] [id number] Dez Lee [id number] Kev [id number] nal 044 Office [address] One Results This patient has no known results.
--- NOTE | 2020-11-21 11:18 | ER ---
Nurse's Notes [facility] Name: Aston Scanlon Age: 45 yrs Sex: Male : 1975 Arrival Date: 11/21/2020 Time: 10:33 Bed 28 Private MD: Diagnosis: Coronavirus infection, unspecified;Pneumonia due to SARS-associated coronavirus;Hypoxemia;Dyspnea;Hypokalemia Presentation: 11/21 11:00 Chief complaint: Patient states: COVID + , low O2 at home. Coronavirus screen: Client iw presents with at least one sign or symptom that may indicate coronavirus-19. Client reports previous positive COVID test result. Ebola Screen: Patient negative for fever greater than or equal to 101.5 degrees Fahrenheit, and additional compatible Ebola Virus Disease symptoms Patient denies exposure to infectious person. Patient denies travel to an Ebola-affected area in the 21 days before illness onset. No symptoms or risks identified at this time. Initial Sepsis Screen: Does the patient meet any 2 criteria? No. Patient's initial sepsis screen is negative. Does the patient have a suspected source of infection? No. Patient's initial sepsis screen is negative. Risk Assessment: Do you want to hurt yourself or someone else? Patient reports no desire to harm self or others. Onset of symptoms was November 21, 2020. 11:00 Method Of Arrival: Wheelchair iw 11:00 Acuity: CORDELL 3 iw Triage Assessment: 11:00 General: Appears in no apparent distress. uncomfortable, ill, Behavior is calm, bp cooperative, appropriate for age. Pain: Denies pain. EENT: No deficits noted. Neuro: No deficits noted. Cardiovascular: Rhythm is sinus rhythm. Respiratory: Reports shortness of breath Airway is patent Respiratory effort is even, labored, Breath sounds are diminished bilaterally. GI: No signs and/or symptoms were reported involving the gastrointestinal system. : No signs and/or symptoms were reported regarding the genitourinary system. Derm: No deficits noted. Musculoskeletal: No deficits noted. Historical: - Allergies: 11:36 No Known Allergies; iw - Home Meds: 11:36 lisinopril 20 mg Oral tab 1 tab once daily [Active]; iw - PMHx: 11:36 Hypertension; Kidney stones; iw - Immunization history:: Client reports having NOT received the Covid vaccine. - Family history:: not pertinent. - Social history:: Smoking status: Patient denies any tobacco usage or history of. Screenin:00 Abuse screen: Denies threats or abuse. Denies injuries from another. Nutritional bp screening: No deficits noted. Tuberculosis screening: No symptoms or risk factors identified. Fall Risk None identified. Assessment: 11:00 General: SEE TRIAGE NOTE. bp 12:00 Reassessment: ADMIT INITIATED. bp 14:00 Reassessment: No changes from previously documented assessment. Patient and/or family bp updated on plan of care and expected duration. Pain level reassessed. Vital Signs: 10:46 BP 125 / 77; Pulse 91; Resp 30; Temp 97.8(O); Pulse Ox 94% on R/A; Weight 87.54 kg; [facility] Height 5 ft. 9 in. (175.26 cm); Pain 4/10; 12:00 BP 122 / 93; Pulse 95; Resp 17; Pulse Ox 98% ; bp 13:00 BP 126 / 84; Pulse 94; Resp 26; Pulse Ox 98% ; bp 14:00 BP 132 / 92; Pulse 99; Resp 22; Pulse Ox 96% ; bp 15:00 BP 129 / 86; Pulse 83; Resp 26; Pulse Ox 97% ; bp 16:00 BP 138 / 81; Pulse 86; Resp 29; Pulse Ox 97% ; bp 17:00 BP 124 / 88; Pulse 84; Resp 27; Pulse Ox 96% ; bp 10:46 Body Mass Index 28.50 (87.54 kg, 175.26 cm) [facility] ED Course: 10:33 Patient arrived in ED. mr 10:48 Patient has correct armband on for positive identification. Bed in low position. Call [facility] light in reach. Side rails up X 1. Warm blanket given. Pillow given. monitoring manager on. Pulse ox on. NIBP on. 10:50 Zane Chun, DELISA is Primary Nurse. bp 10:53 Houston Gutierrez MD is Attending Physician. hieu 11:00 Arm band placed on. bp 11:13 Pancho Hernadez DO is Hospitalizing Provider. hieu 11:18 Initial lab(s) drawn, by ED staff, sent to lab. EKG done, by ED staff, reviewed by 5 Houston Gutierrez MD. Inserted saline lock: 20 gauge in left forearm, using aseptic technique. Blood collected. 11:23 XRAY Chest (1 view) In Process Unspecified. EDMS 11:36 Triage completed. iw 17:27 No provider procedures requiring assistance completed. Patient admitted, IV remains in bp place. Administered Medications: 10:59 CANCELLED (Duplicate Order): Decadron (dexamethasone) 2 mg PO once hieu 11:15 Drug: Zithromax (azithromycin) 500 mg Route: IVPB; Infused Over: 1 hrs; Site: left bp forearm; 14:14 Follow up: IV Status: Completed infusion; IV Intake: 250ml bp 11:34 Drug: NS 0.9% 1000 ml Route: IV; Rate: 125 ml/hr; Site: left wrist; iw 17:27 Follow up: IV Status: Infusion continued upon admission bp 11:34 Drug: SOLU-Medrol (methylPrednisoLONE) 125 mg Route: IVP; Site: left wrist; iw 12:51 Follow up: Response: No adverse reaction bp 11:34 Drug: Singulair 10 mg Route: PO; bp 17:27 Follow up: Response: No adverse reaction bp 11:34 Drug: Xopenex (levalbuterol) 2.5 mg Route: Inhalation; iw 11:34 Drug: Eliquis (apixaban) 5 mg Route: PO; iw 12:52 Follow up: Response: No adverse reaction bp 11:34 Drug: Decadron (dexamethasone) 2 mg Route: PO; iw 12:52 Follow up: Response: No adverse reaction bp 11:35 Drug: Pepcid (famotidine) 20 mg Route: IVP; Site: left wrist; iw 12:51 Follow up: Response: No adverse reaction bp 14:14 Drug: Remdesivir 200 mg Route: IV; Rate: per protocol; Site: left forearm; bp 15:30 Follow up: IV Status: Completed infusion; IV Intake: 250ml bp 14:30 Drug: Potassium Effervescent Tablet 25 mEq Route: PO; bp 17:19 Follow up: Response: No adverse reaction bp Intake: 14:14 IV: 250ml; Total: 250ml. bp 15:30 IV: 250ml; Total: 500ml. bp Outcome: 11:17 Decision to Hospitalize by Provider. hieu 17:00 Admitted to ER Hold. Please see [facility] for further documentation. bp 17:00 Condition: stable 17:00 Instructed on the need for admit. 11/22 01:24 Patient left the ED. wg Signatures: Dispatcher [employer] EDHouston Grove MD MD cha Rivera, Jennifer mr Merlene Ayala RN RN iw Martinez, Maria mh5 Peltier, Brian, RN RN bp Gamba, Liam, RN wg Corrections: (The following items were deleted from the chart) 11/21 17:20 17:19 General: Appears bp bp
--- NOTE | 2020-11-21 11:18 | EDPHYS ---
Physician Documentation [facility] Name: Aston Scanlon Age: 45 yrs Sex: Male : 1975 Arrival Date: 11/21/2020 Time: 10:33 Bed 28 Private MD: AYALA Physician Houston Gutierrez HPI: 11/21 11:06 This 45 yrs old Male presents to ER via Unassigned with complaints of COVID+ hieu Low O2. 11:06 The patient has shortness of breath. hieu 11:07 Onset: The symptoms/episode began/occurred 6 day(s) ago. Duration: The symptoms are hieu continuous, and are steadily getting worse. The patient's shortness of breath is aggravated by coughing, light activity, supine position. The patient or guardian reports cough, that is intermittent, difficulty breathing, flu symptoms, arthralgias, low-grade fever, myalgias. Associated signs and symptoms: Pertinent positives: non-productive cough, fever. Severity of symptoms: At their worst the symptoms were moderate in the emergency department the symptoms are unchanged. Associated signs and symptoms: Pertinent positives: fever, sore throat. Historical: - Allergies: 11:36 No Known Allergies; iw - Home Meds: 11:36 lisinopril 20 mg Oral tab 1 tab once daily [Active]; iw - PMHx: 11:36 Hypertension; Kidney stones; iw - Immunization history:: Client reports having NOT received the Covid vaccine. - Family history:: not pertinent. - Social history:: Smoking status: Patient denies any tobacco usage or history of. ROS: 11:08 Constitutional: Negative for fever, chills, and weight loss, Eyes: Negative for injury, hieu pain, redness, and discharge, ENT: Negative for injury, pain, and discharge, Neck: Negative for injury, pain, and swelling, Cardiovascular: Negative for chest pain, palpitations, and edema, Abdomen/GI: Negative for abdominal pain, nausea, vomiting, diarrhea, and constipation, Back: Negative for injury and pain, : Negative for injury, bleeding, discharge, and swelling, MS/Extremity: Negative for injury and deformity, Skin: Negative for injury, rash, and discoloration, Neuro: Negative for headache, weakness, numbness, tingling, and seizure, Psych: Negative for depression, anxiety, suicide ideation, homicidal ideation, and hallucinations, Allergy/Immunology: Negative for hives, rash, and allergies, Endocrine: Negative for neck swelling, polydipsia, polyuria, polyphagia, and marked weight changes. 11:08 Respiratory: Positive for cough, shortness of breath, at rest. wheezing, expiratory. Exam: 11:08 Constitutional: This is a well developed, well nourished patient who is awake, alert, iheu and in no acute distress. Head/Face: Normocephalic, atraumatic. Eyes: Pupils equal round and reactive to light, extra-ocular motions intact. Lids and lashes normal. Conjunctiva and sclera are non-icteric and not injected. Cornea within normal limits. Periorbital areas with no swelling, redness, or edema. ENT: Nares patent. No nasal discharge, no septal abnormalities noted. Tympanic membranes are normal and external auditory canals are clear. Oropharynx with no redness, swelling, or masses, exudates, or evidence of obstruction, uvula midline. Mucous membranes moist. Neck: Trachea midline, no thyromegaly or masses palpated, and no cervical lymphadenopathy. Supple, full range of motion without nuchal rigidity, or vertebral point tenderness. No Meningismus. Chest/axilla: Normal chest wall appearance and motion. Nontender with no deformity. No lesions are appreciated. Cardiovascular: Regular rate and rhythm with a normal S1 and S2. No gallops, murmurs, or rubs. Normal PMI, no JVD. No pulse deficits. Abdomen/GI: Soft, non-tender, with normal bowel sounds. No distension or tympany. No guarding or rebound. No evidence of tenderness throughout. Back: No spinal tenderness. No costovertebral tenderness. Full range of motion. Male : Normal genitalia with no discharge or lesions. Skin: Warm, dry with normal turgor. Normal color with no rashes, no lesions, and no evidence of cellulitis. MS/ Extremity: Pulses equal, no cyanosis. Neurovascular intact. Full, normal range of motion. Neuro: Awake and alert, GCS 15, oriented to person, place, time, and situation. Cranial nerves II-XII grossly intact. Motor strength 5/5 in all extremities. Sensory grossly intact. Cerebellar exam normal. Normal gait. Psych: Awake, alert, with orientation to person, place and time. Behavior, mood, and affect are within normal limits. 11:08 Respiratory: mild respiratory distress is noted, Respirations: normal, no acute changes, Breath sounds: decreased breath sounds, that are mild, rhonchi, are not appreciated, Respiratory rate: 91 11:25 ECG was reviewed by the Attending Physician. [facility] Vital Signs: 10:46 BP 125 / 77; Pulse 91; Resp 30; Temp 97.8(O); Pulse Ox 94% on R/A; Weight 87.54 kg; [facility] Height 5 ft. 9 in. (175.26 cm); Pain 4/10; 12:00 BP 122 / 93; Pulse 95; Resp 17; Pulse Ox 98% ; bp 13:00 BP 126 / 84; Pulse 94; Resp 26; Pulse Ox 98% ; bp 14:00 BP 132 / 92; Pulse 99; Resp 22; Pulse Ox 96% ; bp 15:00 BP 129 / 86; Pulse 83; Resp 26; Pulse Ox 97% ; bp 16:00 BP 138 / 81; Pulse 86; Resp 29; Pulse Ox 97% ; bp 17:00 BP 124 / 88; Pulse 84; Resp 27; Pulse Ox 96% ; bp 10:46 Body Mass Index 28.50 (87.54 kg, 175.26 cm) [facility] MDM: 10:53 Patient medically screened. [facility] 11:10 Differential diagnosis: Anxiety Reaction Bronchitis CHF exacerbation, bronchitis, flu, hieu URI, Myocardial Infarction pneumonia, pulmonary edema, Pulmonary Embolism reactive airway disease, Unstable Angina. Antibiotic administration: Zithromax is given. The patient's Wells Deep Vein Thrombosis Score was calculated as follows: Total Score: 0-2 Pts- Low Risk. The patient's pulmonary embolism risk score was calculated as follows: Total Score: 0-2 points. This patient was found to be at low risk for a pulmonary embolism by using the Well's assessment criteria. Immunization status:. Data reviewed: vital signs, nurses notes, lab test result(s), radiologic studies. 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 Test interpretation: by ED physician or midlevel provider: ECG, plain radiologic studies. 11/21 10:58 Order name: Basic Metabolic Panel; Complete Time: 13:39 [facility] 11/21 10:58 Order name: CBC with Diff; Complete Time: 13:39 [facility] 11/21 10:58 Order name: LFT's; Complete Time: 13:39 hieu 11/21 10:58 Order name: Magnesium; Complete Time: 13:39 [facility] 11/21 10:58 Order name: NT PRO-BNP; Complete Time: 13:39 hieu 11/21 10:58 Order name: PT-INR; Complete Time: 13:39 hieu 11/21 10:58 Order name: Troponin (emerg Dept Use Only); Complete Time: 13:39 [facility] 11/21 12:11 Order name: C-Reactive Protein EDMS 11/21 12:11 Order name: C-Reactive Protein EDMS 11/21 12:11 Order name: CBC with Automated Diff EDMS 11/21 12:11 Order name: CBC with Automated Diff EDMS 11/21 12:11 Order name: D-Dimer EDMS 11/21 12:11 Order name: D-Dimer EDMS 11/21 12:11 Order name: Ferritin EDMS 11/21 10:58 Order name: XRAY Chest (1 view); Complete Time: 13:39 [facility] 11/21 12:11 Order name: Ferritin EDMS 11/21 12:11 Order name: Lipid Profile EDMS 11/21 12:11 Order name: Lipid Profile EDMS 11/21 12:12 Order name: Potassium EDMS 11/21 14:22 Order name: C-Reactive Protein EDMS / 14:22 Order name: Ferritin EDMS 11/21 14:23 Order name: C-Reactive Protein EDMS 11/21 14:23 Order name: C-Reactive Protein EDMS 11/21 14:23 Order name: C-Reactive Protein EDMS / 14:23 Order name: Ferritin EDMS 11/21 14:23 Order name: Ferritin EDMS 11/21 14:24 Order name: CBC with Automated Diff EDMS 11/21 14:24 Order name: CBC with Automated Diff EDMS 11/21 14:24 Order name: CBC with Automated Diff EDMS / 14:24 Order name: Ferritin EDMS 11/21 10:58 Order name: EKG; Complete Time: 10:59 hieu 11/21 10:58 Order name: Cardiac monitoring; Complete Time: 15:45 [facility] 11/21 10:58 Order name: EKG - Nurse/Tech; Complete Time: 15:45 [facility] 11/21 10:58 Order name: IV Saline Lock; Complete Time: 11:04 [facility] 11/21 10:58 Order name: Labs collected and sent; Complete Time: 11: [facility] 11/21 10:58 Order name: O2 Per Protocol; Complete Time: 11:03 [facility] 11/21 10:58 Order name: O2 Sat Monitoring; Complete Time: 11:03 [facility] 11/21 11:20 Order name: Diet Regular; Complete Time: 11:20 [facility] 11/21 14:22 Order name: Social Service Consult [facility] 11/21 14:22 Order name: Respiratory Therapy Consult [facility] 11/21 14:24 Order name: Chest Single View [facility] 11/21 14:24 Order name: Chest Single View EDMS EC:25 Rate is 80 beats/min. Rhythm is regular. QRS [place] is Normal. [place] interval is normal. QRS hieu interval is normal. QT interval is normal. No Q waves. T waves are Normal. No ST changes noted. Clinical impression: Normal ECG and No evidence of ischemia. Interpreted by me. Reviewed by me. Administered Medications: 10:59 CANCELLED (Duplicate Order): Decadron (dexamethasone) 2 mg PO once hieu 11:15 Drug: Zithromax (azithromycin) 500 mg Route: IVPB; Infused Over: 1 hrs; Site: left bp forearm; 14:14 Follow up: IV Status: Completed infusion; IV Intake: 250ml bp 11:34 Drug: NS 0.9% 1000 ml Route: IV; Rate: 125 ml/hr; Site: left wrist; iw 17:27 Follow up: IV Status: Infusion continued upon admission bp 11:34 Drug: SOLU-Medrol (methylPrednisoLONE) 125 mg Route: IVP; Site: left wrist; iw 12:51 Follow up: Response: No adverse reaction bp 11:34 Drug: Singulair 10 mg Route: PO; bp 17:27 Follow up: Response: No adverse reaction bp 11:34 Drug: Xopenex (levalbuterol) 2.5 mg Route: Inhalation; iw 11:34 Drug: Eliquis (apixaban) 5 mg Route: PO; iw 12:52 Follow up: Response: No adverse reaction bp 11:34 Drug: Decadron (dexamethasone) 2 mg Route: PO; iw 12:52 Follow up: Response: No adverse reaction bp 11:35 Drug: Pepcid (famotidine) 20 mg Route: IVP; Site: left wrist; iw 12:51 Follow up: Response: No adverse reaction bp 14:14 Drug: Remdesivir 200 mg Route: IV; Rate: per protocol; Site: left forearm; bp 15:30 Follow up: IV Status: Completed infusion; IV Intake: 250ml bp 14:30 Drug: Potassium Effervescent Tablet 25 mEq Route: PO; bp 17:19 Follow up: Response: No adverse reaction bp Disposition Summary: 11/21/20 11:17 Hospitalization Ordered Hospitalization Status: Inpatient Admission hieu Provider: Pancho Hernadez cha Condition: Fair hieu Problem: new hieu Symptoms: have improved hieu Bed/Room Type: Standard hieu Location: Telemetry/MedSurg (Inpatient)(11/21/20 23:06) cg Room Assignment: [facility](11/21/20 23:06) Diagnosis - Coronavirus infection, unspecified hieu - Pneumonia due to SARS-associated coronavirus hieu - Hypoxemia hieu - Dyspnea hieu - Hypokalemia hieu Forms: - Medication Reconciliation Form hieu - SBAR form hieu Signatures: Dispatcher [employer] ED[place] MD MD cha Williams, Irene, RN DELISA iw Maria Guadalupe Crawford RN RN Zane Chun RN RN bp Corrections: (The following items were deleted from the chart) 10:59 10:58 Decadron (dexamethasone) 2 mg PO once ordered. hieu hieu 17:16 11:17 Telemetry/MedSurg (Inpatient) hieu iw 17:16 11:17 hieu iw 23:06 17:16 [facility] ER HOLD cg 23:06 17:16 ERHOLD- cg
[2020-11-21 11:23] LABS: Absolute Lymphocytes (CBC) 0.9 K/uL (0.7-4.9); Basophils % 0.1 % (0-1.3); Lymphocytes % 14.6 % (15.3-44.8); MPV 8.6 fL (7.6-11.3); Protime INR 1.05
[2020-11-21] MEDS ORDERED: METHYLPREDNISOLONE 125 MG INJ ONE (11:42)
[2020-11-21] MEDS ORDERED: LEVALBUTEROL 1.25 MG/3 ML NEB ONE (11:43)
[2020-11-21] MEDS ORDERED: NA CHLORIDE 0.9% 1,000 ML ONE (11:43)
[2020-11-21] MEDS ORDERED: APIXABAN 5 MG TABLET ONE (11:43)
[2020-11-21] MEDS ORDERED: dexAMETHasone 4 MG/ML VIAL ONE (11:45)
[2020-11-21 11:53] LABS: ALT/SGPT 29 U/L (12-78); AST/SGOT 20 U/L (15-37); Alkaline Phosphatase 50 U/L (45-117); BUN Blood Urea Nitrogen 16 mg/dL (7-18); Bicarbonate 26 mmol/L (21-32); Bilirubin Direct 0.2 mg/dL (0-0.2); Bilirubin Total 0.4 mg/dL (0.2-1.0); Glucose Level 138 mg/dL (74-106); Magnesium 2.1 mg/dL (1.8-2.4); NT PRO-BNP 266 pg/mL (<125); Potassium 3.4 mmol/L (3.5-5.1); Protein, Total 6.9 g/dL (6.4-8.2); Sodium Level 142 mmol/L (136-145); Troponin (Emerg Dept Use Only) < 0.02 ng/mL (0.0-0.045)
--- NOTE | 2020-11-21 12:00 | RAD REPORT ---
EXAM DESCRIPTION: Jarrod Single View11/21/2020 11:23 am CLINICAL HISTORY: Cough COMPARISON: November 19, 2020 FINDINGS: Worsening in extensive bilateral pulmonary opacities The heart is normal size IMPRESSION: Worsening in bilateral pneumonia
[2020-11-21] MEDS ORDERED: POTASSIUM CL SA 10 MEQ TAB PO ONE (12:11)
--- NOTE | 2020-11-21 12:18 | P.HP ---
Certification for Inpatient Patient admitted to: Inpatient With expected LOS: <2 Midnights Patient will require the following post-hospital care: None Practitioner: I am a practitioner with admitting privileges, knowledge of patient current condition, hospital course, and medical plan of care. Services: Services provided to patient in accordance with Admission requirements found in Title 42 Section 412.3 of the Code of Federal Regulations <Dorothy Sepulveda - Last Filed: 11/21/20 13:29> Patient admitted to: Observation <Pancho Hernadez - Last Filed: 11/21/20 14:27> Patient History Date of Service: 11/21/20 Primary Care Provider: DIXON miller Reason for admission: shortness of breath History of Present Illness: 45 year old male with past medical history of hypertension presents for evaluation of shortness of breath. He was in his usual state of health when he developed chills and diarrhea. He went to get tested for COVID and was positive. He received monoclonal antibody infusion 4 days ago and was doing fine until yesterday when he developed shortness of breath. He used his inhaler with no response. His symptoms worsen this morning and O2 sats dropped in 80s. His work in ED is noted for COVID pneumonia. He is unvaccinated. Home medications list reviewed: Yes - Past Medical/Surgical History Diabetic: No -: HTN Past Surgical History: Reviewed- Non-Contributory - Social History Smoking Status: Never smoker <Dorothy Sepulveda - Last Filed: 11/21/20 13:29> Date of Service: 11/21/20 Primary Care Provider: DIXON kee - Past Medical/Surgical History Psychosocial/ Personal History: Home - Family History Family History: Reviewed- Non-Contributory - Social History Alcohol use: Yes CD- Drugs: No Caffeine use: No Place of Residence: Home <Pancho Hernadez - Last Filed: 11/21/20 14:27> Allergies No Known Drug Allergies Allergy (Verified 04/08/14 07:14) Unknown No Known Allergies Allergy (Uncoded 05/06/16 11:53) Unknown Home Medications: lisinopriL [Prinivil] 20 mg PO [id number] 04/04/14 Acetaminophen with Codeine [Tylenol with Codeine #4 Tablet] 1 each PO Q6HP PRN 05/06/16 Review of Systems General: Unremarkable Eyes: Unremarkable ENT: Unremarkable Respiratory: Shortness of Breath Cardiovascular: Unremarkable Gastrointestinal: Unremarkable Genitourinary: Unremarkable Musculoskeletal: Unremarkable Neurological: Unremarkable <Dorothy Sepulveda - Last Filed: 11/21/20 13:29> Physical Examination - Physical Exam General: Alert, In no apparent distress, Oriented x3 HEENT: Atraumatic, Normocephalic, PERRLA, Mucous membr. moist/pink, Sclerae nonicteric Neck: Supple, 2+ carotid pulse no bruit, JVD not distended, Without JVD or thyroid abnormality Respiratory: Clear to auscultation bilaterally, Normal air movement Cardiovascular: No edema, Normal pulses, Regular rate/rhythm Gastrointestinal: Normal bowel sounds, Soft and benign, Non-distended, No ascites, No tenderness, No masses, No rebound, No guarding Musculoskeletal: No clubbing, No swelling, No contractures, No erythema, No tenderness, No warmth Integumentary: No rashes, No breakdown, No significant lesion, No tenderness/swelling, No erythema, No warmth, No cyanosis Neurological: Normal gait, Normal speech, Normal strength at 5/5 x4 extr - Studies Laboratory Data (last 24 hrs) 11/21/20 11:02: PT 12.1, INR 1.05 11/21/20 11:02: WBC 6.50 D, Hgb 13.8, Hct 43.0, Plt Count 225 D 11/21/20 11:02: Sodium 142, Potassium 3.4 L, BUN 16, Creatinine 1.14, Glucose 138 H, Magnesium 2.1, Total Bilirubin 0.4, AST 20, ALT 29, Alkaline Phosphatase 50 <Dorothy Sepulveda - Last Filed: 11/21/20 13:29> - Studies Laboratory Data (last 24 hrs) 11/21/20 11:02: PT 12.1, INR 1.05 11/21/20 11:02: WBC 6.50 D, Hgb 13.8, Hct 43.0, Plt Count 225 D 11/21/20 11:02: Sodium 142, Potassium 3.4 L, BUN 16, Creatinine 1.14, Glucose 138 H, Magnesium 2.1, Total Bilirubin 0.4, AST 20, ALT 29, Alkaline Phosphatase 50 <Pancho Hernadez - Last Filed: 11/21/20 14:27> Assessment and Plan - Plan Assessment: 45 year old male admitted for COVID pneumonia 1. Acute hypoxia secondary COVID-19 pneumonia 2. Hypokalemia 3. Hypertension Plan: 1. Acute hypoxia secondary COVID-19 pneumonia: Continue oxygen 5L via NC per protocol Repeat CXR IV steroids Monitor inflammatory markers Monitor electrolytes Pulmonary consultation placed GI prophylaxis DVT prophylaxis compression socks 2. Hypokalemia: Potassium repleted per protocol Monitor electrolytes 3. Hypertension: Continue home meds Monitor blood pressure Discharge Plan: Home Plan to discharge in: 48 Hours - Advance Directives Does patient have a Living Will: No Does patient have a Durable POA for Healthcare: No - Code Status/Comfort Care Code Status Assessed: Yes Code Status: Full Code <CocoDorothy - Last Filed: 11/21/20 13:29> - Plan Patient seen and evaluated. Agree with physician acute care assistant evaluation, recommendations and treatment plan. Impression: Dyspnea secondary to bilateral Covid pneumonia with hypoxia Hypertension Plan: Continue with IV steroids and supplementation. Patient started on remdesivir. Patient understands risks and benefit of medication. Will monitor liver function test. Await recommendations by pulmonology. Wean off oxygen to maintain sats above 90%. Patient will likely require home oxygen at discharge. Continue to reassess. Recommend proning, lying on his side and incentive sp irometer. Respiratory consulted to help with this. We will continue to monitor the patient closely. Recheck chest x-ray tomorrow. Recheck lab tomorrow. Anticipate home in the next 24 to 40 hours. DVT prophylaxis: Lovenox CODE STATUS: Full code Advance care planning: Home at discharge Time Spent Managing Pts Care (In Minutes): 55 <Pancho Hernadez - Last Filed: 11/21/20 14:27>
[2020-11-21] MEDS ORDERED: AZITHROMYCIN IV 500 MG in NA CHLORIDE 0.9% 250 ML IVPB ONE (12:30)
[2020-11-21] MEDS ORDERED: MONTELUKAST 10 MG TAB PO ONE (13:00)
[2020-11-21] MEDS ORDERED: REMDESIVIR (EUA) 200 MG in NA CHLORIDE 0.9% 250 ML IV ONE (13:00)
[2020-11-21 15:45] LABS: C-Reactive Protein 30.8 mg/L (<3.00); Ferritin 47.5 ng/mL (26-388)
[2020-11-21] MEDS ORDERED: POTASSIUM 25 MEQ EFFERV TAB ONE (16:51)
[2020-11-21] MEDS: ASCORBIC ACID 500 MG TABLET PO SCH ×2 (17:00→21:00)
[2020-11-21] MEDS: ENOXAPARIN 40 MG/0.4 ML SQ SCH (17:00)
[2020-11-21 18:22] VITALS: BMI 28.5
[2020-11-21] MEDS ORDERED: ASCORBIC ACID 500 MG TABLET ONE ×2 (18:37→21:38)
[2020-11-21] MEDS ORDERED: ENOXAPARIN 40 MG/0.4 ML SQ ONE (18:37)
[2020-11-21] MEDS: FAMOTIDINE 20 MG/2 ML VIAL IV SCH (21:00)
[2020-11-21] MEDS: METHYLPREDNISOLONE 40 MG INJ IV SCH (21:00)
[2020-11-21] MEDS ORDERED: FAMOTIDINE 20 MG/2 ML VIAL IV ONE (21:38)
[2020-11-21] MEDS ORDERED: METHYLPREDNISOLONE 40 MG INJ ONE (21:38)
[2020-11-21] MEDS ORDERED: MELATONIN 5 MG TABLET PO PRN (22:56)
[2020-11-21] MEDS ORDERED: MELATONIN 5 MG TABLET PO ONE (23:28)
--- NOTE | 2020-11-22 06:14 | P.PN ---
Subjective Date of Service: 11/22/20 Primary Care Provider: DIXON kee Chief Complaint: shortness of breath Subjective: Improving (Patient ambulating. Currently on 4 L) Physical Examination - Vital Signs Temperature: 98.3 F Blood Pressure: 134/86 Pulse: 71 Respirations: 18 Pulse Ox (%): 91 - Studies Laboratory Data (last 24 hrs) 11/21/20 14:30: Potassium 3.9 11/21/20 11:02: PT 12.1, INR 1.05 11/21/20 11:02: WBC 6.50 D, Hgb 13.8, Hct 43.0, Plt Count 225 D 11/21/20 11:02: Sodium 142, Potassium 3.4 L, BUN 16, Creatinine 1.14, Glucose 138 H, Magnesium 2.1, Total Bilirubin 0.4, AST 20, ALT 29, Alkaline Phosphatase 50 Assessment & Plan Discharge Plan: Home Plan to discharge in: 24 Hours Physician Review Additional Text: COVID: Positive CXR: COMPARISON: November 19, 2020 FINDINGS: Worsening in extensive bilateral pulmonary opacities The heart is normal size IMPRESSION: Worsening in bilateral pneumonia Physical exam: General: Alert, In no apparent distress, Oriented x3 HEENT: Supple Respiratory: Clear to auscultation bilaterally, Normal air movement currently on 4 L Cardiovascular: No edema, Normal pulses, Regular rate/rhythm Gastrointestinal: Normal bowel sounds, Soft and benign, Non-distended, No ascites, No tenderness, No masses, No rebound, No guarding Musculoskeletal: No clubbing, No swelling, No contractures, No erythema, No tenderness, No warmth Integumentary: No rashes, No breakdown, No significant lesion, No tenderness/swelling, No erythema, No warmth, No cyanosis Neurological: Normal gait, Normal speech, Normal strength at 5/5 x4 extr Impression: Dyspnea secondary to bilateral Covid pneumonia with hypoxia Hypertension Plan: Currently on 4 L and doing well. Continue with IV steroids and supplementation. Patient started on remdesivir. Patient understands risks and benefit of medication. Will monitor liver function test. Await recommendations by pulmonology. Wean off oxygen to maintain sats above 90%. Will ambulate this morning. If able to tolerate current oxygen use and doing well will plan for discharge. If the patient's remains 1 more day I will turn the service over to the hospitalist team tomorrow. I will go over plan of care with him. Continue with proning, lying on his side and incentive spirometer. DVT prophylaxis: Lovenox CODE STATUS: Full code Advance care planning: Home at discharge Time Spent Managing Pts Care (In Minutes): 55
[2020-11-22 06:33] LABS: Absolute Lymphocytes (CBC) 0.7 K/uL (0.7-4.9); Basophils % 0.3 % (0-1.3); Hematocrit 42.4 % (39.6-49.0); Lymphocytes % 7.8 % (15.3-44.8); MPV 8.9 fL (7.6-11.3); RBC Red Blood Cell Count 5.66 M/uL (4.33-5.43)
[2020-11-22 06:52] LABS: ALT/SGPT 48 U/L (12-78); AST/SGOT 23 U/L (15-37); Albumin 2.7 g/dL (3.4-5.0); Alkaline Phosphatase 51 U/L (45-117); BUN Blood Urea Nitrogen 16 mg/dL (7-18); Bicarbonate 25 mmol/L (21-32); Bilirubin Total 0.5 mg/dL (0.2-1.0); Ferritin 39.9 ng/mL (26-388); Glucose Level 125 mg/dL (74-106); HDL Cholesterol 29 mg/dL (40-60); LDL Cholesterol, Calculated 75 (<130); Potassium 4.2 mmol/L (3.5-5.1); Protein, Total 6.8 g/dL (6.4-8.2); Sodium Level 140 mmol/L (136-145)
--- NOTE | 2020-11-22 07:45 | P.PN ---
Subjective Date of Service: 11/22/20 Primary Care Provider: DIXON kee Chief Complaint: shortness of breath Physical Examination - Vital Signs Temperature: 98.3 F Blood Pressure: 134/86 Pulse: 71 Respirations: 18 Pulse Ox (%): 91 - Studies Laboratory Data (last 24 hrs) 11/21/20 14:30: Potassium 3.9 11/21/20 11:02: PT 12.1, INR 1.05 11/21/20 11:02: WBC 6.50 D, Hgb 13.8, Hct 43.0, Plt Count 225 D 11/21/20 11:02: Sodium 142, Potassium 3.4 L, BUN 16, Creatinine 1.14, Glucose 138 H, Magnesium 2.1, Total Bilirubin 0.4, AST 20, ALT 29, Alkaline Phosphatase 50 Assessment And Plan - Plan Assessment: 45 year old male admitted for COVID pneumonia 1. Acute hypoxia secondary COVID-19 pneumonia 2. Hypokalemia 3. Hypertension Plan: 1. Acute hypoxia secondary COVID-19 pneumonia: Continue oxygen 5L via NC per protocol Repeat CXR IV steroids Inflammatory markers WNL Monitor electrolytes Pulmonary consultation placed. Awaiting recommendations. GI prophylaxis DVT prophylaxis compression socks 2. Hypokalemia: Improved. Potassium 4.2 Monitor electrolytes 3. Hypertension: Continue home meds Monitor blood pressure Physician Review Additional Text: COVID: Positive CXR: COMPARISON: November 19, 2020 FINDINGS: Worsening in extensive bilateral pulmonary opacities The heart is normal size IMPRESSION: Worsening in bilateral pneumonia Physical exam: General: Alert, In no apparent distress, Oriented x3 HEENT: Atraumatic, Normocephalic, PERRLA, Mucous membr. moist/pink, Sclerae nonicteric Neck: Supple, 2+ carotid pulse no bruit, JVD not distended, Without JVD or thyroid abnormality Respiratory: Clear to auscultation bilaterally, Normal air movement Cardiovascular: No edema, Normal pulses, Regular rate/rhythm Gastrointestinal: Normal bowel sounds, Soft and benign, Non-distended, No ascites, No tenderness, No masses, No rebound, No guarding Musculoskeletal: No clubbing, No swelling, No contractures, No erythema, No tenderness, No warmth Integumentary: No rashes, No breakdown, No significant lesion, No tenderness/swelling, No erythema, No warmth, No cyanosis Neurological: Normal gait, Normal speech, Normal strength at 5/5 x4 extr Impression: Dyspnea secondary to bilateral Covid pneumonia with hypoxia Hypertension Plan: Continue with IV steroids and supplementation. Patient started on remdesivir. Patient understands risks and benefit of medication. Will monitor liver function test. Await recommendations by pulmonology. Wean off oxygen to maintain sats above 90%. Patient will likely require home oxygen at discharge. Continue to reassess. Recommend proning, lying on his side and incentive spirometer. Respiratory consulted to help with this. We will continue to monitor the patient closely. Recheck chest x-ray tomorrow. Recheck lab tomorrow. Anticipate home in the next 24 to 40 hours. DVT prophylaxis: Lovenox CODE STATUS: Full code Advance care planning: Home at discharge
[2020-11-22] MEDS: FAMOTIDINE 20 MG/2 ML VIAL IV SCH (08:53)
[2020-11-22] MEDS: ASCORBIC ACID 500 MG TABLET PO SCH ×3 (08:53→17:00)
[2020-11-22] MEDS: METHYLPREDNISOLONE 40 MG INJ IV SCH (08:53)
[2020-11-22 08:56] LABS: Blood Morphology Comment NOT SEEN (NOT SEEN); Platelet Estimate ADEQ; White Blood Cell Scan OK (OK)
[2020-11-22] MEDS ORDERED: THIAMINE HCL 100 MG TABLET PO SCH (09:00)
[2020-11-22] MEDS ORDERED: VITAMIN D 1000 UNIT TAB PO SCH (09:00)
[2020-11-22] MEDS ORDERED: ZINC SULFATE 220 MG CAP PO SCH (09:00)
[2020-11-22] MEDS ORDERED: REMDESIVIR (EUA) 100 MG in NA CHLORIDE 0.9% 250 ML IV SCH (09:00)
--- NOTE | 2020-11-22 12:43 | P.DS ---
Admission Date: 11/21/20 Discharge Date: 11/22/20 Primary Care Provider: DIXON kee Disposition: ROUTINE DISCHARGE Discharge Condition: GOOD Reason for Admission: shortness of breath Consultations: Pulmonary-Dr. Gentile Procedures: COVID: Positive CXR: COMPARISON: November 19, 2020 FINDINGS: Worsening in extensive bilateral pulmonary opacities The heart is normal size IMPRESSION: Worsening in bilateral pneumonia Medical Problem List: Dyspnea secondary to bilateral Covid pneumonia with hypoxia Hypertension Brief History of Present Illness: 45 year old male with past medical history of hypertension presents for evaluation of shortness of breath. He was in his usual state of health when he developed chills and diarrhea. He went to get tested for COVID and was positive. He received monoclonal antibody infusion 4 days ago and was doing fine until yesterday when he developed shortness of breath. He used his inhaler with no response. His symptoms worsen this morning and O2 sats dropped in 80s. His work in ED is noted for COVID pneumonia. He is unvaccinated. Hospital Course: Patient presented with dyspnea secondary to bilateral Covid pneumonia. Patient is unvaccinated. Patient was seen by his PCP earlier in the week. Patient received monoclonal antibody treatment. In the ER patient was found to be hypoxic. Patient required hospitalization. During the course of his stay patient received IV steroids and remdesivir. Patient has done well. Patient able to ambulate with oxygen without significant desaturations. At discharge the patient will continue with home oxygen. Home oxygen will be arranged. Currently on 3 L per nasal cannula. Maintain oxygen saturations above 93%. At discharge patient will continue with prednisone 20 mg 1 pill twice daily for 7 days then 1 pill once daily for 7 days. At discharge patient will also continue with aspirin 81 mg daily. Tessalon Perles 100 mg 1 pill 3 times a day as needed for cough will be provided. At discharge patient will continue with sup plementation including vitamin C 500 mg 1 pill 3 times a day, vitamin D 2000 units daily, thiamine 100 mg 1 pill twice daily, Pepcid 20 mg 1 pill twice daily, and zinc 220 mg daily. Recommend to continue isolation for at least 10 days. Recommend to continue proning, incentive spirometer use and lying on his side. Recommend to continue facemask use, handwashing and social distancing. At discharge patient will need to follow-up with pulmonology within 1 week to follow-up this hospitalization. Pulmonology will help wean the patient off oxygen. Patient will need to limit her activities at home. No work until he is cleared by pulmonology. Patient with history of hypertension. Patient may continue with his medications. Recommend to maintain blood pressure less than 130/80. Hold blood pressure medication if blood pressure systolic less than 110. Further adjustment in medication can be done by his PCP.. Vital Signs/Physical Exam: Temp Pulse Resp BP Pulse Ox 98.7 F 87 24 H 132/84 94 11/22/20 12:00 11/22/20 12:00 11/22/20 12:00 11/22/20 12:00 11/22/20 12:00 General: Alert, In no apparent distress, Oriented x3, Cooperative HEENT: Atraumatic Neck: Supple Respiratory: Clear to auscultation bilaterally, Normal air movement, Other (C urrently on 3 L) Cardiovascular: Normal pulses, Regular rate/rhythm Gastrointestinal: Normal bowel sounds, No tenderness, No masses, No rebound, No guarding Musculoskeletal: No erythema, No tenderness, No warmth Integumentary: No tenderness/swelling, No erythema, No warmth, No cyanosis Neurological: Normal speech, Normal strength at 5/5 x4 extr, Normal tone, Normal affect Laboratory Data at Discharge: WBC 8.50 K/uL (4.3-10.9) D 11/22/20 06:00 Hgb 14.0 g/dL (13.6-17.9) 11/22/20 06:00 Hct 42.4 % (39.6-49.0) 11/22/20 06:00 Plt Count 245 K/uL (152-406) 11/22/20 06:00 PT 12.1 SECONDS (9.5-12.5) 11/21/20 11:02 INR 1.05 11/21/20 11:02 Sodium 140 mmol/L (136-145) 11/22/20 06:00 Potassium 4.2 mmol/L (3.5-5.1) 11/22/20 06:00 BUN 16 mg/dL (7-18) 11/22/20 06:00 Creatinine 0.89 mg/dL (0.55-1.3) 11/22/20 06:00 Glucose 125 mg/dL (74-106) H 11/22/20 06:00 Magnesium 2.1 mg/dL (1.8-2.4) 11/21/20 11:02 Total Bilirubin 0.5 mg/dL (0.2-1.0) 11/22/20 06:00 AST 23 U/L (15-37) 11/22/20 06:00 ALT 48 U/L (12-78) 11/22/20 06:00 Alkaline Phosphatase 51 U/L (45-117) 11/22/20 06:00 Triglycerides 88 mg/dL (<150) 11/22/20 06:00 Cholesterol 122 mg/dL (<200) 11/22/20 06:00 HDL Cholesterol 29 mg/dL (40-60) L 11/22/20 06:00 Cholesterol/HDL Ratio 4.21 11/22/20 06:00 Home Medications: lisinopriL [Prinivil] 20 mg PO [id number] 04/04/14 Acetaminophen with Codeine [Tylenol with Codeine #4 Tablet] 1 each PO Q6HP PRN 05/06/16 Physician Discharge Instructions: Patient presented with dyspnea secondary to bilateral Covid pneumonia. Patient is unvaccinated. Patient was seen by his PCP earlier in the week. Patient received monoclonal antibody treatment. In the ER patient was found to be hypoxic. Patient required hospitalization. During the course of his stay patient received IV steroids and remdesivir. Patient has done well. Patient able to ambulate with oxygen without significant desaturations. At discharge the patient will continue with home oxygen. Home oxygen will be arranged. Currently on 3 L per nasal cannula. Maintain oxygen saturations above 93%. At discharge patient will continue with prednisone 20 mg 1 pill twice daily for 7 days then 1 pill once daily for 7 days. At discharge patient will also continue with aspirin 81 mg daily. Tessalon Perles 100 mg 1 pill 3 times a day as needed for cough will be provided. At discharge patient will continue with supplementation including vitamin C 500 mg 1 pill 3 times a day, vitamin D 2000 units daily, thiamine 100 mg 1 pill twice daily, Pepcid 20 mg 1 pill twice daily, and zinc 220 mg daily. Recommend to continue isolation for at least 10 days. Recommend to continue proning, incentive spirometer use and lying on his side. Recommend to continue facemask use, handwashing and social distancing. At discharge patient will need to follow-up with pulmonology within 1 week to follow-up this hospitalization. Pulmonology will help wean the patient off oxygen. Patient will need to limit her activities at home. No work until he is cleared by pulmonology. Patient with history of hypertension. Patient may continue with his medications. Recommend to maintain blood pressure less than 130/80. Hold blood pressure medication if blood pressure systolic less than 110. Further adjustment in medication can be done by his PCP.. Diet: AHA Activity: Ad nick Followup: NONE,NONE [Primary Care Provider] - Time spent managing pt's care (in minutes): 55
[2020-11-22 12:59] VITALS: O2SAT 94
--- NOTE | 2020-11-22 16:17 | RAD REPORT ---
EXAM DESCRIPTION: RAD - Chest Single View - 11/22/2020 9:14 am CLINICAL HISTORY: Follow-up Covid COMPARISON: Chest Single View dated 11/21/2020; Chest Pa And Lat (2 Views) dated 11/19/2020; Chest Pa An d Lat (2 Views) dated 12/17/2018; Abdomen 1 View (KUB) dated 12/10/2018 FINDINGS: Lines: None. Lungs: Moderate patchy bilateral airspace disease. Pleural: No significant pleural effusions or pneumothorax. Cardiac: The heart size is within normal limits. Bones: No acute fractures. Other: IMPRESSION: No significant change in moderate patchy airspace disease bilaterally concerning for mul tifocal pneumonia.
[2020-11-22 16:56] VITALS: BP 142/93; TEMP 98.9
[2020-11-22] MEDS: ENOXAPARIN 40 MG/0.4 ML SQ SCH (17:00)
--- NOTE | 2020-11-23 17:01 | EKG ---
Test Date: 2020-11-21 Test Time: 11:16:32 Technical Professional: KENDRICK MEASUREMENT RESULTS: Intervals: Rate: 80 SC: 148 QRSD: 88 QT: 380 QTc: 438 [place]: P: 27 SC: 148 QRS: 74 T: 11 INTERPRETIVE STATEMENTS: Normal sinus rhythm Normal ECG Compared to ECG 11/19/2020 09:58:37 Sinus tachycardia no longer present Electronically Signed On 11-23-20 16:57:08 CDT by John Bess
--- NOTE | 2020-11-24 11:01 | EKG ---
Test Date: 2020-11-22 Test Time: 02:08:18 Accounting Technician: RT-O MEASUREMENT RESULTS: Intervals: Rate: 70 WA: 152 QRSD: 88 QT: 396 QTc: 427 [place]: P: 21 WA: 152 QRS: 55 T: 23 INTERPRETIVE STATEMENTS: Normal sinus rhythm Normal ECG Compared to ECG 11/21/2020 11:16:32 No significant changes Electronically Signed On 11-24-20 10:54:40 CDT by John Bess
== END 2020-11-22 18:55 | disposition home or self-care (01) | DRG 177 ==
LOC: ER 10:31 → ERHOLD 17:28 → 4TH 11-22 00:42
PROVIDERS: ADMIT Family Medicine; ATTEND Family Medicine
DX: U07.1 COVID-19 (principal); J12.82 Pneumonia due to coronavirus disease 2019; R09.02 Hypoxemia; E87.6 Hypokalemia; I10 Essential (primary) hypertension
CPT/HCPCS: 36415; 71045; 71046; 71275; 80048; 80053; 80061; 80076; 82728; 83735; 83880; 84132; 84484; 85025; 85379; 85610; 85652; 86140; 93005; 94010; 94760; 96361; 96365; 96366; 96367; 96375; 99285; J0456; J0696; J1100; J1650; J2920; J2930; J7030; J7050; J7512; Q9967

== ENCOUNTER 2021-04-27 11:00 | Day surgery (SDC) | payer OTHER ==
[2021-04-27] MEDS ORDERED: Ringers Lactate 1,000 ML IV ONE (11:28)
[2021-04-27 11:54] VITALS: BP 132/84; TEMP 98; O2SAT 99
[2021-04-27] MEDS ORDERED: ACETAMINOPHEN 500 MG TAB ONE (13:33)
[2021-04-27] MEDS ORDERED: CEFAZOLIN/SWI 2gm 0 GM/0 ML SYR ONE (14:14)
== END 2021-04-27 16:24 | disposition left against medical advice (07) ==
LOC: OR 11:00
PROVIDERS: ATTEND Urology
DX: N13.2 Hydronephrosis with renal and ureteral calculous obstruction (principal); Z53.8 Procedure and treatment not carried out for other reasons; Z20.822 Contact with and (suspected) exposure to COVID-19
CPT/HCPCS: 87088; 87086; U0003; J7120; J0690

== ENCOUNTER 2022-05-02 03:14 | Emergency (ER) | payer OTHER ==
--- OUTSIDE RECORDS SUMMARY | 2022-05-02 03:19 | XMS REPORT | Continuity of Care Document ---
:1975 Author Organization [facility] t Address [address] [place] [address] Care Team Providers Name Role Phone Handy POWELL, Monty Garces Attending Clinician Doctor Unassigned, [place] Attending Clinician Unavailable Payers Payer Name Policy Type Policy Number Effective Date Expiration Date S ource Problems Condition Condition Condition Status Onset Resolution Last Treating Co mments Source Name Details Category Date Date Treatment Clinician Date Essential Essential Disease Active Uni vers hypertensi hypertensi 08-17 it y of on on 00:00: [address] ED ED Disease Active Univers (erectile (erectile 08-17 it[place] [address] [place] [address] Allergies, Adverse Reactions, Alerts This patient has no known allergies or adverse reactions. Social History Social Habit Start Date Stop Date Quantity Comments Source History of tobacco Snuff User [facility] use [facility] Alcohol intake [facility] Sex Assigned At [facility] Alcohol Comment 2016-08-22 2016-08-22 [facility] 00:00:00 00:00:00 [facility] Smoking Status Start Date Stop Date Source Current some day smoker 2018-11-16 00:00:00 [facility] Medications Ordered Filled Start Stop Current Ordering Indication Dosage Frequency Signature Comments Components Source Medication Medication Date Date Medication? Clinician (SIG) Name Name tadalafil Yes [id number] 20mg Take 1 U nivizaiah (MONICALIS) 20 8-30 tablet [place] [facility] dysfunctio n. lisinopril 2019-0 Yes [id number] 20mg Take 1 U nivers 20 mg 8-30 tablet by ity of tablet 00:00: mouth [place] 00 daily. Medical Branch tadalafil 2019-0 Yes [id number] 20mg Take 1 U nivers (CIALIS) 20 8-30 tablet by [place] needed for [facility] dysfunctio n. lisinopril 2019-0 Yes [id number] 20mg Take 1 U nivers 20 mg 8-30 tablet by ity of tablet 00:00: mouth [place] 00 daily. Medical Branch tadalafil 2018-0 Yes [id number] 20mg Take 1 U nivers (CIALIS) 20 8-30 tablet by [place] mg [place] needed for Medical Erect[facility] dysfunctio n. lisinopril 2018-0 Yes [id number] 20mg Take 1 U nivers 20 mg 8-30 tablet by ity of tablet 00:00: mouth [place] 00 daily. Medical Branch tadalafil 20190 Yes [id number] 20mg Take 1 U nivers (CIALIS) 20 8-30 tablet by [place] of mg tablet [place] needed for [facility] Erectile [facility] dysfunctio n. lisinopril 2018-0 Yes [id number] 20mg Take 1 U nivers 20 mg 8-30 tablet by ity of tablet 00:00: mouth [place] 00 daily. Medical Branch tadalafil 20180 Yes [id number] 20mg Take 1 U nivers (CIALIS) 20 6-19 tablet by [place] of mg tablet [place] needed for Medical Erectile [facility] dysfunctio n. lisinopril 2018-0 Yes [id number] 20mg Take 1 U nivers 20 mg 6-19 tablet by ity of tablet 00:00: mouth [place] 00 daily. Medical Branch tadalafil 0 Yes [id number] 20mg Take 1 U nivers (CIALIS) 20 6-19 tablet by [place] of mg tablet [place] needed for Medical Erectile Branch dysfunctio n. lisinopril 2018- Yes [id number] 20mg Take 1 U nivers 20 mg 6-19 tablet by ity of tablet 00:00: mouth [place] 00 daily. Medical Branch lisinopril 2017- 2019- No [id number] 20mg Take 1 Univers 20 mg 6-19 08-30 tablet by ity of tablet 00:00: 00:00 mouth [place] 00 :00 daily. Medical Branch tadalafil 2019- No [id number] 20mg Take 1 Univers (CIALIS) 20 6-19 08-30 tablet by it y of mg tablet 00:00: 00:00 mouth as [place] 00 :00 needed for Medical Erectile Branch dysfunctio n. lisinopril 2017- 2019- No [id number] 20mg Take 1 Univers 20 mg 6-19 08-30 tablet by ity of tablet 00:00: 00:00 mouth [place] 00 :00 daily. Medical Branch tadalafil 2019- No [id number] 20mg Take 1 Univers (CIALIS) 20 6-19 08-30 tablet by it y of mg tablet 00:00: 00:00 mouth [place] 00 :00 needed for Medical Erectile Branch dysfunctio n. lisinopril 2017- 2019- No [id number] 20mg Take 1 Univers 20 mg 6-19 08-30 tablet by ity of tablet 00:00: 00:00 mouth [place] 00 :00 daily. Medical Branch tadalafil 2019- No [id number] 20mg Take 1 Univers (CIALIS) 20 6-19 08-30 tablet by it y of mg tablet 00:00: 00:00 mouth [place] 00 :00 needed for Medical Erectile Branch dysfunctio n. lisinopril 2017- 2019- No [id number] 20mg Take 1 Univers 20 mg 6-19 08-30 tablet by ity of tablet 00:00: 00:00 mouth [place] 00 :00 daily. Medical Branch tadalafil 2019- No [id number] 20mg Take 1 Univers (CIALIS) 20 6-19 08-30 tablet by it y of mg tablet 00:00: 00:00 mouth [place] 00 :00 needed for Medical Erectile Branch dysfunctio n. Vital Signs Vital Name Observation Time Observation Value Comments Source Systolic blood 2018-11-16 13:38:00 129 mm[Hg] Univer sity of pressure [facility] Diastolic blood 2018-11-16 13:38:00 89 mm[Hg] Unive rsity of pressure [facility] Heart rate 2018-11-16 13:38:00 73 /min Universi ty of [facility] Body temperature 2018-11-16 13:38:00 36.78 Nidhi Univ ersity of [facility] Body height 2018-11-16 13:38:00 175.3 cm [facility]i ty of [facility] Body weight 2018-11-16 13:38:00 93.441 kg [facility] BMI 2018-11-16 13:38:00 30.42 kg/m2 Universi ty of [facility] Oxygen saturation in 2018-11-16 13:38:00 98 /min University of Arterial blood by [facility] Pulse oximetry Branch Systolic blood 2018-11-16 13:38:00 129 mm[Hg] Univer sity of pressure [facility] Diastolic blood 2018-11-16 13:38:00 89 mm[Hg] Unive rsity of pressure [facility] Heart rate 2018-11-16 13:38:00 73 /min Universi ty of [facility] Body temperature 2018-11-16 13:38:00 36.78 Nidhi Univ ersity of [facility] Body height 2018-11-16 13:38:00 175.3 cm [facility] Body weight 2018-11-16 13:38:00 93.441 kg [facility] BMI 2018-11-16 13:38:00 30.42 kg/m2 Universi ty of [facility] Oxygen saturation in 2018-11-16 13:38:00 98 /min University of Arterial blood by [facility] Pulse oximetry Branch Procedures Procedure Date / Time Performing Clinician Source Performed COMP. METABOLIC PANEL 2018-11-16 13:54:00 Monty Murrell [facility] ([id number]) Medical Branch LIPID PANEL 2018-11-16 13:54:00 Monty Murrell [facility] ([id number])(TOTAL Medical Branch CHOLESTEROL, TRIGLYCERIDES, HDL) CBC WITH DIFFERENTIAL 2018-11-16 13:54:00 Monty Murrell [facility] ASSIGNMENT OF BENEFITS 2018-11-16 13:28:47 Doctor Unassigned, No [facility] Medical Branch AUTHORIZATION FOR 2018-10-04 05:01:00 Doctor Unassigned, No [facility] RELEASE OF [facility] Medical Branch Encounters Start End Encounter Admission Attending Care Care Encounter Source Date/Time Date/Time Type Type Clinicians Facility Department ID 2018-11-16 2018-11-19 Office Handy MSTOM [id number] 08:29:23 08:44:27 Visit [facility] [id number] [place] [id number] Professio [id number] nal [facility] [address] 2018-11-16 2018-11-19 Office Handy [facility] [id number] [facility] 08:29:23 08:44:27 Visit [facility] [id number] it y of [place] [id number] [place] as Professio [phone] Me dical [address] Office [address] 2018-11-16 2018-11-16 Orders Doctor KIM [id number] Univers 00:00:00 00:00:00 Only Unassigned, JAKI [id number] ity of [place] [facility] [id number] [place] as [phone] [address] 2018-10-04 2018-10-04 Orders Doctor KIM [id number] Univers 00:00:00 00:00:00 Only Unassigned, JAKI [id number] ity of [place] [facility] [id number] [place] [phone] [address] Results Test Description Test Time Test Comments Results Result Comments Source COMP. METABOLIC PANEL ([id number]) 2018-11-16 16:23:00 Test Item Value Reference Range Interpretation Comme nts NA (test code = 8883485833) 145 mmol/L 135-145 K (test code = 2297792274) 4.5 mmol/L 3.5-5 CL (test code = 8342727320) 104 mmol/L 98-108 CO2 TOTAL (test code = 28 mmol/L 23-31 5774090129) AGAP (test code = 6091208522) 2-16 BUN (test code = 2114097504) 11 mg/dL 7-23 GLUCOSE (test code = 1768251096) 92 mg/dL 70-110 CREATININE (test code = 1.00 mg/dL 0.6-1.25 3737344372) TOTAL BILI (test code = 0.7 mg/dL 0.1-1.7 3932533664) CALCIUM (test code = 9962047119) 10.0 mg/dL 8.6-10.6 T PROTEIN (test code = 8.0 g/dL 6.3-8.2 0426506854) ALBUMIN (test code = 7297687149) 4.7 g/dL 3.5-5 ALK PHOS (test code = 4311564490) 90 U/L 34-122 ALT(SGPT) (test code = 46 U/L 9-51 7084746170) AST(SGOT) (test code = 30 U/L 13-40 3914830808) eGFR Calculation (Non- mL/min/1.73m2 Citizen [place]) (test code = 4205874934) eGFR Calculation ( mL/min/1.73m2 [place]) (test code = 1300003968) QUIN (test code = QUIN) Association of Glomerular Filtration Rate (GFR) and Staging of Kidney Disease*+ +- + +| GFR (mL/min/1.73 m2)?| With Kidney Damage?|?Without Kidney Damage+ +--- + +|?>90?|?Stage one?|? Normal?+ +-- + +|?60-89?|?Stage two?|? Decreased GFR? + +--------- + ----+|?30-59?|?Stage three?|? Stage three? + +--------- + ----+|?15-29?|?Stage four? |? Stage four?+ +---- + ---------+|?<15 (or dialysis)?|?Stage five? |? Stage five?+ +---- + ---------+*Each stage assumes the associated GFR level has been in effect for at least three months.?Stages 1 to 5, with or without kidney disease, indicate chronic kidney disease.Notes: Determination of stages one and two (with eGFR >59mL/min/1.73 m2) requires estimation of kidney damage for at least three months as defined by structural or functional abnormalities of the kidney, manifested by either:Pathological abnormalities or Markers of kidney damage (including abnormalities in the composition of the blood or urine or abnormalities in imaging tests). [id number]TOTAL CHOLESTEROL, TRIGLYCERIDES, HDL)2018-11-16 16:23:00 Test Item Value Reference Range Interpretation Comments CHOL (test code = 164 mg/dL 120-200 8361219543) HDL (test code = 37 mg/dL >40 L 5193295881) HDLC RATIO (test code = See_Comment [Au tomated message] 1360875618) The system Agent Panda generated this result transmit tan reference range : <=5.0. The refe rence range was not u sed to interpret th is result as normal/abnormal . TRIG (test code = 263 mg/dL 30-170 H 9840633145) LDL CHOL (test code = 74 mg/dL See_Comment [Auto mated message] 86064-8) The system Agent Panda generated this result transmit tan reference range : <=160. The refe rence range was not u sed to interpret th is result as normal/abnormal . VLDL (test code = 53 mg/dL 5-60 2934945846) Lab Interpretation (test Abnormal code = 68550-7) [facility] WITH [id number] 16:14:00 Test Item Value Reference Range Interpretation Comments WBC (test code = See_Comment [Automated 7890-2) message] The sy stem which generated this result transmitted reference range : 4.20 - 10.70 10*3/?L. The reference range was not used to interpret this result as normal/abnormal . RBC (test code = See_Comment H [Automated 319-8) message] The sy stem which generated this result transmitted reference range : 4.26 - 5.52 10*6/?L. The reference range was not used to interpret this result as normal/abnormal . HGB (test code = 16.8 g/dL 12.2-16.4 H 718-7) HCT (test code = 48.4 % 38.4-49.3 4544-3) MCV (test code = 86.3 fL 81.7-95.6 787-2) MCH (test code = 29.9 pg 26.1-32.7 785-6) MCHC (test code = 34.7 g/dL 31.2-35 786-4) RDW-SD (test code = 38.9 fL 38.5-51.6 04930-5) RDW-CV (test code = 12.4 % 12.1-15.4 788-0) PLT (test code = See_Comment [Automated 777-3) message] The sy stem which generated this result transmitted reference range : 150 - 328 10*3/ ?L. The reference r balaji was not used to interpret this result as normal/abnormal . MPV (test code = 11.3 fL 9.8-13 59686-9) NRBC/100 WBC (test See_Comment [Automat ed code = 0072934479) message] The system which generated this result transmitted reference range : 0.0 - 10.0 /100 WBCs. The refer ence range was not u sed to interpret th is result as normal/abnormal . NRBC x10^3 (test code <0.01 See_Comment [Auto mated = 7498783452) message] The s ystem which generated this result transmitted reference range : 10*3/?L. The reference range was not used to interpret this result as normal/abnormal . GRAN MAT (NEUT) % 56.6 % (test code = 770-8) IMM GRAN % (test code 0.40 % = 7806801598) LYMPH % (test code = 33.3 % 736-9) MONO % (test code = 7.0 % 5905-5) EOS % (test code = 1.5 % 713-8) BASO % (test code = 1.2 % 706-2) GRAN MAT x10^3(ANC) 4.19 10*3/uL 1.99-6.95 (test code = 0986535108) IMM GRAN x10^3 (test 0.03 10*3/uL 0-0.06 code = 4329887210) LYMPH x10^3 (test code 2.47 10*3/uL 1.09-3.23 = 731-0) MONO x10^3 (test code 0.52 10*3/uL 0.36-1.02 = 742-7) EOS x10^3 (test code = 0.11 10*3/uL 0.06-0.53 711-2) BASO x10^3 (test code 0.09 10*3/uL 0.01-0.09 = 704-7) Lab Interpretation Abnormal (test code = 22005-1) [facility]"
[2022-05-02] MEDS ORDERED: KETOROLAC 30 MG/ML INJ ONE (03:46)
[2022-05-02] MEDS ORDERED: ONDANSETRON 4 MG/2 ML VIAL ONE (03:46)
[2022-05-02] MEDS ORDERED: NA CHLORIDE 0.9% 1,000 ML ONE (03:47)
[2022-05-02 04:05] LABS: Absolute Lymphocytes (CBC) 1.7 K/uL (0.7-4.9); Hematocrit 49.5 % (39.6-49.0); Lymphocytes % 9.7 % (15.3-44.8); MCV 85.3 fL (80-100); MPV 9.1 fL (7.6-11.3)
[2022-05-02 04:27] LABS: Albumin 4.4 g/dL (3.4-5.0); Bilirubin Total 0.9 mg/dL (0.2-1.0); Potassium 3.7 mmol/L (3.5-5.1); Protein, Total 8.1 g/dL (6.4-8.2)
[2022-05-02 04:56] LABS: Urine Blood 3+ (Negative); Urine Glucose Negative (Negative); Urine Protein 1+ (Negative); Urine Specific Gravity >=1.030 (1.005-1.030); Urine pH 5.5 (5.0-7.0)
--- NOTE | 2022-05-02 05:02 | EDPHYS ---
Physician Documentation [facility] Name: Aston Scanlon Age: 47 yrs Sex: Male : 1975 Arrival Date: 05/02/2022 Time: 03:19 Bed 13 Private MD: ED Physician Cristopher Mcgraw HPI: 05/02 04:14 This 47 yrs old Male presents to ER via Ambulatory with complaints of Possible ms3 Kidney Stone. 04:14 47-year-old male with past medical history of hypertension and kidney stones presents ms3 for left-sided flank pain that began 5 hours prior to arrival. Patient states pain is 10/10 described as being sharp. Patient states that pain radiates to his groin. Patient denies nausea, vomiting, fevers, chills.. Historical: - Allergies: 03:43 No Known Allergies; ll3 - Home Meds: 03:43 lisinopril 20 mg Oral tab 1 tab once daily [Active]; ll3 - PMHx: 03:43 Hypertension; Kidney stones; ll3 - PSHx: 03:43 Appendectomy; ll3 - Immunization history:: Client reports having NOT received the Covid vaccine. - Social history:: Smoking status: Patient denies any tobacco usage or history of. ROS: 04:14 Constitutional: Negative for fever, and chills. Neck: Negative for injury, pain, and ms3 swelling, Cardiovascular: Negative for chest pain, and palpitations. Respiratory: Negative for shortness of breath, cough, wheezing, and pleuritic chest pain, Abdomen/GI: Negative for abdominal pain, nausea, vomiting, diarrhea, and constipation, MS/Extremity: Negative for injury and deformity, Skin: Negative for injury, rash, and discoloration. 04:14 Back: Positive for flank pain, on the left. 04:14 All other systems are negative. Exam: 04:14 Constitutional: This is a well developed, well nourished patient who is awake, alert, ms3 and in no acute distress. Head/Face: Normocephalic, atraumatic. Neck: Trachea midline, no cervical lymphadenopathy. Supple, full range of motion without nuchal rigidity, or vertebral point tenderness. No Meningismus. Chest/axilla: Normal chest wall appearance and motion. Nontender with no deformity. Cardiovascular: Regular rate and rhythm with a normal S1 and S2. No gallops, murmurs, or rubs. Normal PMI, no JVD. No pulse deficits. Respiratory: Lungs have equal breath sounds bilaterally, clear to auscultation and percussion. No rales, rhonchi or wheezes noted. No increased work of breathing, no retractions or nasal flaring. Abdomen/GI: Soft, non-tender, with normal bowel sounds. No distension or tympany. No guarding or rebound. No evidence of tenderness throughout. 04:14 MS/ Extremity: Pulses equal, no cyanosis. Neurovascular intact. Full, normal range of motion. 04:14 Back: CVA tenderness, is noted on the left. Vital Signs: 03:31 BP 140 / 104; Pulse 84; Resp 17 S; Pulse Ox 100% on R/A; ha1 03:40 BP 140 / 104; Pulse 84; Resp 16; Temp 97.6; Pulse Ox 100% on R/A; Weight 95.25 kg (R); ll3 Height 5 ft. 10 in. (177.80 cm) (R); Pain 10/10; 03:40 Body Mass Index 30.13 (95.25 kg, 177.80 cm) ll3 MDM: 03:30 Patient medically screened. ms3 04:14 Differential diagnosis: nephrolithiasis, pyelonephritis, UTI. ms3 05:14 Data reviewed: vital signs, nurses notes, lab test result(s), radiologic studies, CT ms3 scan, and as a result, I will discharge patient. Consideration of Admission/Observation Escalation of care including admission/observation considered. Discussed labs and CT results with patient. Discussed observation with patient and patient declines as he states he has passed an 8 or 9 mm stone previously.. I considered the following discharge prescriptions or medication management in the emergency department Medications were administered in the Emergency Department. See MAR. Counseling: I had a detailed discussion with the patient and/or guardian regarding: the historical points, exam findings, and any diagnostic results supporting the discharge/admit diagnosis, lab results, radiology results, the need for outpatient follow up, to return to the emergency department if symptoms worsen or persist or if there are any questions or concerns that arise at home. ED course: Discussed observation with patient and patient declines at this time. Patient wishes to follow-up with Dr. Toth in 2 to 3 days. Patient understands and agrees with plan. All questions were answered. Return precautions discussed include worsening symptoms, or any other concerns. On reevaluation patient's pain is improved, patient is in no apparent distress, nontoxic, ambulatory in emergency department, speaking full sentences.. 05/02 03:30 Order name: CBC with Diff ms3 05/02 03:30 Order name: CMP ms3 05/02 03:30 Order name: Urine Microscopic Only ms3 05/02 04:11 Order name: CBC with Automated Diff; Complete Time: 04:45 EDMS 05/02 04:27 Order name: Comprehensive Metabolic Panel; Complete Time: 04:45 EDMS 05/02 04:57 Order name: Urine Dipstick-Ancillary EDMS 05/02 03:30 Order name: CT Abd/Pelvis - Without Contrast ms3 05/02 03:30 Order name: IV Saline Lock; Complete Time: 03:53 ms3 05/02 03:30 Order name: Labs collected and sent; Complete Time: 03:53 ms3 Administered Medications: 03:48 Drug: NS 0.9% 1000 ml Route: IV; Rate: 1 bolus; Site: left antecubital; ha1 03:49 Drug: TORadol - (ketorolac) 15 mg Route: IVP; Site: left antecubital; ha1 03:50 Drug: Zofran (Ondansetron) 4 mg Route: IVP; Site: left antecubital; ha1 05:17 Drug: HYDROcodone-acetaminophen 5 mg-325 mg 1 tabs Route: PO; ll3 Disposition Summary: 05/02/22 05:02 Discharge Ordered Location: Home ms3 Condition: Stable ms3 Diagnosis - Kidney stone ms3 - Left flank pain ms3 - Elevated Creatinine ms3 Followup: ms3 - With: Jason Toth MD - When: 1 - 2 days - Reason: Recheck today's complaints Discharge Instructions: - Discharge Summary Sheet ms3 - Kidney Stones ms3 - Kidney Stones, [id number]-[id number] ms3 Forms: - Medication Reconciliation Form ms3 - Thank You Letter ms3 - Antibiotic Education ms3 - Prescription Opioid Use ms3 Prescriptions: - tamsulosin 0.4 mg Oral capsule - take 1 capsule by ORAL route once daily 1/2 hour following the same meal each ms3 day; 20 capsule; Refills: 0, Product Selection Permitted - Tylenol-Codeine #3 300 mg-30 mg Oral - take 1 tablet by ORAL route every 6 hours as needed for pain; 12 tablet; ms3 Refills: 0, Product Selection Permitted Signatures: Dispatcher [employer] Cristopher Montero DO DO ms3 Damian Leonard, RN RN ll3 Stacey Chang RN RN ha1
--- NOTE | 2022-05-02 05:02 | ER ---
Nurse's Notes [facility] Name: Aston Scanlon Age: 47 yrs Sex: Male : 1975 Arrival Date: 05/02/2022 Time: 03:19 Bed 13 Private MD: Diagnosis: Kidney stone;Left flank pain;Elevated Creatinine Presentation: 05/02 03:40 Chief complaint: Patient states: States "I think I have a kidney stone", c/o LUQ pain ll3 10/10, and N/V since 9:30 pm. Coronavirus screen: Vaccine status: Patient reports being unvaccinated. nausea, vomiting. Ebola Screen: No symptoms or risks identified at this time. Initial Sepsis Screen: Does the patient meet any 2 criteria? No. Patient's initial sepsis screen is negative. Does the patient have a suspected source of infection? No. Patient's initial sepsis screen is negative. Risk Assessment: Do you want to hurt yourself or someone else? Patient reports no desire to harm self or others. Onset of symptoms was May 01, 2022 at 21:30. 03:40 Method Of Arrival: Ambulatory ll3 03:40 Acuity: CORDELL 3 ll3 Historical: - Allergies: 03:43 No Known Allergies; ll3 - Home Meds: 03:43 lisinopril 20 mg Oral tab 1 tab once daily [Active]; ll3 - PMHx: 03:43 Hypertension; Kidney stones; ll3 - PSHx: 03:43 Appendectomy; ll3 - Immunization history:: Client reports having NOT received the Covid vaccine. - Social history:: Smoking status: Patient denies any tobacco usage or history of. Screenin:33 [facility] ED Fall Risk Assessment (Adult) History of falling in the last 3 months, ha1 including since admission No falls in past 3 months (0 pts) Confusion or Disorientation No (0 pts) Intoxicated or Sedated No (0 pts) Impaired Gait No (0 pts) Mobility Assist Device Used No (0 pt) Altered Elimination No (0 pt) Score/Fall Risk Level 0 - 2 = Low Risk Oriented to surroundings, Maintained a safe environment, Educated pt \\T\\ family on fall prevention, incl call for assistance when getting out of bed, Hourly rounding (assess needs \\T\\ fall precautionary measures) done. Abuse screen: Denies threats or abuse. Denies injuries from another. Nutritional screening: No deficits noted. Tuberculosis screening: No symptoms or risk factors identified. Assessment: 03:31 General: Appears uncomfortable, Behavior is calm, cooperative. Pain: Complains of pain ha1 in abdomen Pain does not radiate. Pain currently is 10 out of 10 on a pain scale. Quality of pain is described as crampy, Pain began suddenly. Neuro: Level of Consciousness is awake, alert, obeys commands, Oriented to person, place, time, situation. Cardiovascular: Heart tones S1 S2 present Capillary refill < 3 seconds Patient's skin is warm and dry. Respiratory: Airway is patent Respiratory effort is even, unlabored, Respiratory pattern is regular, symmetrical, Breath sounds are clear bilaterally. GI: Bowel sounds present X 4 quads. Abd is soft and non tender X 4 quads. Reports lower abdominal pain, nausea, vomiting. : No signs and/or symptoms were reported regarding the genitourinary system. EENT: No deficits noted. No signs and/or symptoms were reported regarding the EENT system. Derm: Skin is moist, Skin is normal. Musculoskeletal: Circulation, motion, and sensation intact. Range of motion: intact in all extremities. Vital Signs: 03:31 BP 140 / 104; Pulse 84; Resp 17 S; Pulse Ox 100% on R/A; ha1 03:40 BP 140 / 104; Pulse 84; Resp 16; Temp 97.6; Pulse Ox 100% on R/A; Weight 95.25 kg (R); ll3 Height 5 ft. 10 in. (177.80 cm) (R); Pain 10/10; 03:40 Body Mass Index 30.13 (95.25 kg, 177.80 cm) ll3 ED Course: 03:19 Patient arrived in ED. ja2 03:23 Cristopher Mcgraw DO is Attending Physician. ms3 03:38 Stacey Chang, DELISA is Primary Nurse. ha1 03:43 Triage completed. ll3 03:43 Arm band placed on Patient placed in an exam room, on a stretcher, on pulse oximetry. ll3 03:53 CBC with Diff Sent. ha1 03:53 CMP Sent. ha1 03:53 Urine Microscopic Only Sent. ha1 03:53 Inserted saline lock: 20 gauge in left antecubital area, using aseptic technique. Blood rv1 collected. 05:01 Jason Toth MD is Referral Physician. ms3 05:18 Patient has correct armband on for positive identification. Placed in gown. Bed in low ll3 position. Call light in reach. Side rails up X 1. 05:18 No provider procedures requiring assistance completed. IV discontinued, intact, ll3 bleeding controlled, No redness/swelling at site. Pressure dressing applied. Administered Medications: 03:48 Drug: NS 0.9% 1000 ml Route: IV; Rate: 1 bolus; Site: left antecubital; ha1 03:49 Drug: TORadol - (ketorolac) 15 mg Route: IVP; Site: left antecubital; ha1 03:50 Drug: Zofran (Ondansetron) 4 mg Route: IVP; Site: left antecubital; ha1 05:17 Drug: HYDROcodone-acetaminophen 5 mg-325 mg 1 tabs Route: PO; ll3 Medication: 05:18 VIS not applicable for this client. 3 Outcome: 05:02 Discharge ordered by . ms3 05:18 Discharged to home ambulatory, with family. ll3 05:18 Condition: stable 05:18 Discharge instructions given to patient, family, Instructed on discharge instructions, follow up and referral plans. medication usage, Demonstrated understanding of instructions, follow-up care, medications, Prescriptions given X 2. 05:19 Patient left the ED. 3 Signatures: Cristopher Mcgraw DO DO ms3 Jazzy Aguilar Lynsea RN RN 3 Stacey Chang RN RN 1 Maida Cervantes rv1
[2022-05-02] MEDS ORDERED: HYDROCODONE/APAP 5/325 MG TAB ONE (05:16)
[2022-05-02 05:21] LABS: Calcium Oxalate Crystals- Ur Few /HPF (None Seen); Transitional Epithelial <5 /HPF (None Seen); Urine Bacteria None Seen /HPF (<20); Urine Mucus Slight /HPF (None Seen); Urine RBC >50 /HPF (None Seen)
[2022-05-02 05:23] VITALS: BP 140/104; O2SAT 100
[2022-05-02 05:25] VITALS: TEMP 97.6
--- NOTE | 2022-05-03 09:44 | RAD REPORT ---
EXAM DESCRIPTION: CT Abdomen and Pelvis Without Intravenous Contrast CLINICAL HISTORY: The patient is 47 years old and is Male; FLANK PAIN TECHNIQUE: Axial computed tomography images of the abdomen and pelvis without intravenous contrast. Sagittal and coronal reformatted images were created and reviewed. This CT exam was performed usi ng one or more of the following dose reduction techniques: automated exposure control, adjustment o f the mA and/or kV according to patient size, and/or use of iterative reconstruction technique. COMPARISON: CT abdomen and pelvis without contrast April 22, 2021. FINDINGS: Lung bases: Unremarkable. No mass. No consolidation. Mediastinum: Small hiatal hernia. ABDOMEN: Liver: Unremarkable. Gallbladder and bile ducts: Cholelithiasis. No ductal dilation. Pancreas: Unremarkable. No ductal dilation. Spleen: Unremarkable. No splenomegaly. Adrenals: Unremarkable. No mass. Kidneys and ureters: 6 mm stone in the lower left ureter. Moderate left hydroureteronephrosis an d perinephric/periureteral stranding. Nonobstructing calcifications in the kidneys bilaterally. Stomach and bowel: Scattered colonic diverticula. No obstruction. No mucosal thickening. PELVIS: Appendix: No findings to suggest acute appendicitis. Bladder: Unremarkable. Reproductive: Unremarkable as visualized. ABDOMEN and PELVIS: Intraperitoneal space: Unremarkable. No free air. No significant fluid collection. Bones/joints: No acute fracture. No dislocation. Soft tissues: Unremarkable. Vasculature: Scattered atherosclerotic vascular calcifications. No abdominal aortic aneurysm. Lymph nodes: Unremarkable. No enlarged lymph nodes. IMPRESSION: 6 mm stone in the lower left ureter. Moderate left hydroureteronephrosis and perinephric /periureteral stranding. Electronically signed by: Mustapha Ramirez MD 05/02/2022 4:41 AM FRUIT CUTTER Due to temporary technical issues with the PACS/Fluency reporting system, reports are being signed by the in house radiologists without review as a courtesy to insure prompt reporting. The interpreting radiologist is fully responsible for the content of the report.
== END 2022-05-02 05:19 | disposition home or self-care (01) ==
LOC: ER 03:14
DX: N20.0 Calculus of kidney (principal); R94.4 Abnormal results of kidney function studies; Z87.442 Personal history of urinary calculi; I10 Essential (primary) hypertension
CPT/HCPCS: 85025; 36415; 80053; 74176; 96375; 96374; 99284; J7030; J2405; 81003; 81015

== ENCOUNTER 2024-12-18 20:07 | Emergency (ER) | payer BC, OTHER ==
--- OUTSIDE RECORDS SUMMARY | 2024-12-18 20:09 | XMS REPORT | Continuity of Care Document ---
Author Name Unknown Address [address] [place] [address] Organization [facility] [place] Address [address] [place] [address] Care Team Providers Care Lining Feller Name Role Phone Handy POWELL, Monty Garces Attending Clinician [phone] Doctor Unassigned, [place] Attending Clinician U navailable Payers Payer Name Policy Type Policy Number Effective Date Expirati on Date Source Problems Condition Name Condition Details Condition Category Status Onset Date Resolution Date Last Treatment Date Treating Clinician Comments Source Essential hypertensi on Essential hypertensi on Disease Active 08-17 00:00: 00 [facility] ED (erectile dysfunctio n) ED (erectile dysfunctio n) Disease Active 08-17 00:00: 00 [facility] Social History Social Habit Start Date Stop Date Quantity Comments Source History of tobacco use Snuff User [facility] Alcohol intake [facility] Sex Assigned At [facility] Alcohol Comment 2016-08-22 00:00:00 2016-08-22 00:00:00 occ [facility] Smoking Status Start Date Stop Date Source Current some day smoker 2018-11-16 00:00:00 [facility] Medications Ordered Medication Name Filled Medication Name Start Date Stop Date Current Medication? Ordering Clinician Indication Dosage Frequency Signature (SIG) Comments Components Source tadalafil (CIALIS) 20 mg tablet 11-16 00:00: 00 Yes [id number] 20mg Take 1 tablet by mouth as needed for Erectile dysfunctio n. [facility] lisinopril 20 mg tablet 11-16 00:00: 00 Yes [id number] 20mg Take 1 tablet by mouth daily. [facility] tadalafil (CIALIS) 20 mg tablet 09-05 00:00: 00 11-16 00:00 :00 No [id number] 20mg Take 1 tablet by mouth as needed for Erectile dysfunctio n. [facility] lisinopril 20 mg tablet 09-05 00:00: 00 11-16 00:00 :00 No [id number] 20mg Take 1 tablet by mouth daily. [facility] Vital Signs Vital Name Observation Time Observation Value Comments S mathew Systolic blood pressure 2018-11-16 13:38:00 129 mm[Hg] [facility] Diastolic blood pressure 2018-11-16 13:38:00 89 mm[Hg] [facility] Heart rate 2018-11-16 13:38:00 73 /min [facility] Body temperature 2018-11-16 13:38:00 36.78 Nidhi [facility] Body height 2018-11-16 13:38:00 175.3 cm [facility] Body weight 2018-11-16 13:38:00 93.441 kg [facility] BMI 2018-11-16 13:38:00 30.42 kg/m2 [facility] Oxygen saturation in Arterial blood by Pulse oximetry 2018-11-16 13:38:00 98 /min [facility] Systolic blood pressure 2018-11-16 13:38:00 129 mm[Hg] [facility] Diastolic blood pressure 2018-11-16 13:38:00 89 mm[Hg] [facility] Heart rate 2018-11-16 13:38:00 73 /min [facility] Body temperature 2018-11-16 13:38:00 36.78 Nidhi [facility] Body height 2018-11-16 13:38:00 175.3 cm [facility] Body weight 2018-11-16 13:38:00 93.441 kg [facility] BMI 2018-11-16 13:38:00 30.42 kg/m2 [facility] Oxygen saturation in Arterial blood by Pulse oximetry 2018-11-16 13:38:00 98 /min [facility] Procedures Procedure Date / Time Performed Performing Clinician Source COMP. METABOLIC PANEL (44521) 2018-11-16 13:54:00 [facility] LIPID PANEL (38330)(TOTAL CHOLESTEROL, TRIGLYCERIDES, HDL) 2018-11-16 13:54:00 Monty Murrell [facility] CBC WITH DIFFERENTIAL 2018-11-16 13:54:00 Jason Murrell catrachita [facility] ASSIGNMENT OF BENEFITS 2018-11-16 13:28:47 Docto r Unassigned, [place] [facility] AUTHORIZATION FOR RELEASE OF PHI 2018-10-04 05:01:00 Doctor Unassigned, [place] [facility] Encounters Start Date/Time End Date/Time Encounter Type Admission Type Attending Clinicians Care Facility Care Department Encounter ID Source 2018-11-16 08:29:23 2018-11-19 08:44:27 Office Visit Monty Murrell [facility] [id number] 2018-11-16 08:29:23 2018-11-19 08:44:27 Office Visit [facility] [id number] [facility] 2018-11-16 00:00:00 2018-11-16 00:00:00 Orders Only Doctor Unassigned, [place] [facility] [id number] [facility] 2018-10-04 00:00:00 2018-10-04 00:00:00 Orders Only Doctor Unassigned, [place] [facility] [id number] [facility] Results Test Description Test Time Test Comments Results Result Co mments Source [facility]48741)(TOTAL CHOLESTEROL, TRIGLYCERIDES, HDL)2018-11-16 16:23:00* Test Item Value Reference Range Interpretation Comme nts CHOL (test code = 1705170096) 164 mg/dL 120-200 HDL (test code = 3811361667) 37 mg/dL >40 L HDLC RATIO (test code = 9398651209) See_Comment [Automated messa ge] The system which generated this result transmitted reference range: <=5.0. The reference range was not used to interpret this result as normal/abnormal. TRIG (test code = 5275812462) 263 mg/dL 30-170 H LDL CHOL (test code = 34948-5) 74 mg/dL See_Comment [Automated messa ge] The system which generated this result transmitted reference range: <=160. The reference range was not used to interpret this result as normal/abnormal. VLDL (test code = 5472590165) 53 mg/dL 5-60 Lab Interpretation (test code = 21801-3) Abnormal [facility] WITH [id number] 16:14:00* Test Item Value Reference Range Interpretation Comme nts WBC (test code = 6690-2) See_Comment [Automated messa ge] The system which generated this result transmitted reference range: 4.20 - 10.70 10*3/?L. The reference range was not used to interpret this result as normal/abnormal. RBC (test code = 789-8) See_Comment H [Automated messa ge] The system which generated this result transmitted reference range: 4.26 - 5.52 10*6/?L. The reference range was not used to interpret this result as normal/abnormal. HGB (test code = 718-7) 16.8 g/dL 12.2-16.4 H HCT (test code = 4544-3) 48.4 % 38.4-49.3 MCV (test code = 787-2) 86.3 fL 81.7-95.6 MCH (test code = 785-6) 29.9 pg 26.1-32.7 MCHC (test code = 786-4) 34.7 g/dL 31.2-35 RDW-SD (test code = 95983-4) 38.9 fL 38.5-51.6 RDW-CV (test code = 788-0) 12.4 % 12.1-15.4 PLT (test code = 777-3) See_Comment [Automated Mebelramaa ge] The system which generated this result transmitted reference range: 150 - 328 10*3/?L. The reference range was not used to interpret this result as normal/abnormal. MPV (test code = 79929-3) 11.3 fL 9.8-13 NRBC/100 WBC (test code = 9945802231) See_Comment [Automated Medium ssage] The system which generated this result transmitted reference range: 0.0 - 10.0 /100 WBCs. The reference range was not used to interpret this result as normal/abnormal. NRBC x10^3 (test code = 3352064215) <0.01 See_Comment [Automated Mebelramaa ge] The system which generated this result transmitted reference range: 10*3/?L. The reference range was not used to interpret this result as normal/abnormal. GRAN MAT (NEUT) % (test code = 770-8) 56.6 % IMM GRAN % (test code = 7573005870) 0.40 % LYMPH % (test code = 736-9) 33.3 % MONO % (test code = 5905-5) 7.0 % EOS % (test code = 713-8) 1.5 % BASO % (test code = 706-2) 1.2 % GRAN MAT x10^3(ANC) (test code = 3998193089) 4.19 10*3/uL 1.99-6.95 IMM GRAN x10^3 (test code = 6149836987) 0.03 10*3/uL 0-0.06 LYMPH x10^3 (test code = 731-0) 2.47 10*3/uL 1.09-3.23 MONO x10^3 (test code = 742-7) 0.52 10*3/uL 0.36-1.02 EOS x10^3 (test code = 711-2) 0.11 10*3/uL 0.06-0.53 BASO x10^3 (test code = 704-7) 0.09 10*3/uL 0.01-0.09 Lab Interpretation (test code = 44830-3) Abnormal [facility]
[2024-12-18] MEDS ORDERED: KETOROLAC 30 MG/ML INJ ONE (20:44)
[2024-12-18] MEDS ORDERED: ACETAMINOPHEN 500 MG TAB ONE (20:45)
[2024-12-18 20:54] LABS: Absolute Lymphocytes (CBC) 1.9 K/uL (0.7-4.9); Hematocrit 46.0 % (39.6-49.0); Hemoglobin 16.1 g/dL (13.6-17.9); MCH 30.6 pg (27.0-35.0); MCHC 34.9 g/dL (32.0-36.0); MCV 87.7 fL (80-100); MPV 9.2 fL (7.6-11.3); Nucleated RBC Absolute Count 0.0 (0-0); Nucleated Red Blood Cells % 0.0 % (0-0); RBC Red Blood Cell Count 5.25 M/uL (4.33-5.43); White Blood Count 7.70 thou/uL (4.3-10.9)
[2024-12-18 21:25] LABS: Anion Gap 8.3 mEq/L (5.0-15.0); BUN Blood Urea Nitrogen 10.0 mg/dL (7-18); Glucose Level 122.0 mg/dL (74-106); Potassium 3.3 mEq/L (3.5-5.1); Troponin High Sensitivity 24.6 pg/mL (<58.9)
[2024-12-18] MEDS ORDERED: HYDROMORPHONE HCL 0.5 MG/0.5 ML INJ ONE (21:39)
--- NOTE | 2024-12-18 22:01 | RAD REPORT ---
EXAMINATION: ONE VIEW CHEST XR CLINICAL INDICATION: Male, 49 years old.,CHEST PAIN TECHNIQUE: Frontal chest projection is submitted. Examination is limited by patient positioning and t echnique. COMPARISON: 11/22/2020 FINDINGS: The lungs are well inflated and clear. No pneumothorax or sizable effusion. The heart is normal in s ize. Mediastinal contours are unremarkable. IMPRESSION: No acute intrathoracic abnormalities.
[2024-12-18] MEDS ORDERED: LORazepam 2 MG/ML VIAL ONE (23:59)
--- NOTE | 2024-12-19 00:39 | ER ---
Nurse's Notes [facility] Name: Aston Scanlon Age: 49 yrs Sex: Male : 1975 Arrival Date: 12/18/2024 Time: 20:07 Bed 15 Private MD: Diagnosis: Chest pain, unspecified;Essential (primary) hypertension Presentation: 12/18 20:11 Chief complaint: Patient states: My blood pressure has been between 170-180 systolic jb4 and 100-110 diastolic. I have been having a headache with it. I took my 40mg of lisinopril prior to coming. Coronavirus screen: At this time, the client does not indicate any symptoms associated with coronavirus-19. Ebola Screen: No symptoms or risks identified at this time. Initial Sepsis Screen: Does the patient meet any 2 criteria? No. Patient's initial sepsis screen is negative. Does the patient have a suspected source of infection? No. Patient's initial sepsis screen is negative. Risk Assessment: Do you want to hurt yourself or someone else? Patient reports no desire to harm self or others. Onset of symptoms was December 18, 2024. Transition of care: patient was not received from another setting of care. 20:11 Method Of Arrival: Ambulatory jb4 20:11 Acuity: CORDELL 3 jb4 Triage Assessment: 20:12 General: Appears in no apparent distress. comfortable, Behavior is calm, cooperative, jb4 appropriate for age. Pain: Complains of pain in forehead Pain does not radiate. Pain currently is 4 out of 10 on a pain scale. Quality of pain is described as stabbing, Pain began Earlier today. Neuro: Level of Consciousness is awake, alert, obeys commands, Oriented to person, place, time, situation. Cardiovascular: Patient's skin is warm and dry. Respiratory: Airway is patent Respiratory effort is even, unlabored, Respiratory pattern is regular, symmetrical. Derm: Skin is intact, Skin is pink, warm \T\ dry. Musculoskeletal: Circulation, motion, and sensation intact. Range of motion: intact in all extremities. Historical: - Allergies: 20:12 No Known Allergies; jb4 - Home Meds: 20:12 lisinopril 40 mg oral tablet [Active]; jb4 - PMHx: 20:12 Hypertension; Kidney stones; jb4 - PSHx: 20:12 Appendectomy; jb4 - Immunization history:: Adult Immunizations up to date. - Infectious Disease History:: Denies. - Social history:: Smoking status: Reported history of juuling and/or vaping. Patient uses alcohol, on a daily basis. Screenin:14 [facility] ED Fall Risk Assessment (Adult) History of falling in the last 3 months, jb4 including since admission No falls in past 3 months (0 pts) Confusion or Disorientation No (0 pts) Intoxicated or Sedated No (0 pts) Impaired Gait No (0 pts) Mobility Assist Device Used No (0 pt) Altered Elimination No (0 pt) Score/Fall Risk Level 0 - 2 = Low Risk Oriented to surroundings, Maintained a safe environment. Abuse screen: Denies threats or abuse. Nutritional screening: No deficits noted. Tuberculosis screening: No symptoms or risk factors identified. Assessment: 20:14 Reassessment: see triage note. jb4 20:51 Reassessment: Patient appears in no apparent distress at this time. Patient and/or jb4 family updated on plan of care and expected duration. Pain level reassessed. Patient is alert, oriented x 3, equal unlabored respirations, skin warm/dry/pink. 21:42 Reassessment: Patient appears in no apparent distress at this time. Patient and/or jb4 family updated on plan of care and expected duration. Pain level reassessed. Patient is alert, oriented x 3, equal unlabored respirations, skin warm/dry/pink. 21:51 Reassessment: Pt off the unit visiting family in ICU due to the passing of a family jb4 member. 23:00 General: Appears in no apparent distress. comfortable, slender, well groomed, well vc1 developed, well nourished, Behavior is calm, cooperative, appropriate for age. Pain: Denies pain. Neuro: Level of Consciousness is awake, alert, obeys commands, Oriented to person, place, time, situation, Appropriate for age. Cardiovascular: Heart tones S1 S2 present Capillary refill < 3 seconds Patient's skin is warm and dry. Respiratory: Airway is patent Respiratory effort is even, unlabored, Respiratory pattern is regular, symmetrical, Breath sounds are clear bilaterally. GI: No deficits noted. No signs and/or symptoms were reported involving the gastrointestinal system. : No deficits noted. No signs and/or symptoms were reported regarding the genitourinary system. EENT: No deficits noted. No signs and/or symptoms were reported regarding the EENT system. Derm: Skin is intact, is healthy with good turgor, Skin is dry, Skin is normal, Skin temperature is warm. Musculoskeletal: Circulation, motion, and sensation intact. Range of motion: intact in all extremities. 12/19 01:08 Reassessment: Patient appears in no apparent distress at this time. No changes from vc1 previously documented assessment. Patient and/or family updated on plan of care and expected duration. Pain level reassessed. Patient is alert, oriented x 3, equal unlabored respirations, skin warm/dry/pink. Vital Signs: 12/18 20:11 BP 166 / 108; Pulse 88; Resp 16; Pulse Ox 96% on R/A; Weight 97.52 kg (R); Height 5 ft. jb4 10 in. (R); Pain 4/10; 21:42 BP 156 / 101; Pulse 81; Resp 16; Pulse Ox 96% on R/A; jb4 12/19 01:00 BP 149 / 93; Pulse 79; Resp 16; Pulse Ox 96% ; vc1 12/18 20:11 Body Mass Index 30.85 (97.52 kg, 177.8 cm) jb4 12/18 20:11 Pain Scale: Adult jb4 ED Course: 12/18 20:09 Patient arrived in ED. jb4 20:12 Triage completed. jb4 20:12 Arm band placed on right wrist. jb4 20:14 Patient has correct armband on for positive identification. Bed in low position. Call jb4 light in reach. Side rails up X 1. Provided Education on: plan of care. 20:14 No provider procedures requiring assistance completed. jb4 20:20 Pablo Trejo DO is Attending Physician. tt7 20:45 Inserted saline lock: 20 gauge in right antecubital area, using aseptic technique. jb4 Blood collected. 20:48 Basic Metabolic Panel Sent. jb4 20:48 CBC with Diff Sent. jb4 20:48 Troponin HS Sent. jb4 20:57 XRAY Chest (1 view) In Process Unspecified. EDMS 23:42 Emma Cervantes, DELISA is Primary Nurse. cc6 12/19 01:08 IV discontinued, intact, bleeding controlled, No redness/swelling at site. Pressure vc1 dressing applied. Administered Medications: 12/18 20:49 Drug: Acetaminophen PO 1000 mg PO once Route: PO; jb4 20:49 Drug: Ketorolac IVP 15 mg IVP once Route: IVP; Site: right antecubital; jb4 21:42 Drug: HYDROmorphone IVP 0.5 mg IVP once Route: IVP; Site: right antecubital; jb4 12/19 00:05 Drug: Ativan IVP 0.5 mg IVP once Route: IVP; Site: right antecubital; cc6 Medication: 12/18 20:14 VIS not applicable for this client. jb4 Outcome: 12/19 00:38 Discharge ordered by MD. tt7 00:58 Discharged to home ambulatory, vc1 00:58 Condition: stable 00:58 Discharge instructions given to patient, Instructed on discharge instructions, follow up and referral plans. medication usage, Demonstrated understanding of instructions, follow-up care, medications, Prescriptions given X 1, 01:10 Patient left the ED. vc1 Signatures: Dispatcher [employer] EDMS Monty Benítez RN RN jb4 Aelxandria Holley RN RN vc1 Emma Cervantes RN RN cc6 Pablo Trejo DO DO tt7
--- NOTE | 2024-12-19 00:39 | EDPHYS ---
Physician Documentation [facility] Name: Aston Scanlon Age: 49 yrs Sex: Male : 1975 Arrival Date: 12/18/2024 Time: 20:07 Bed 15 Private MD: ED Physician Pablo Trejo HPI: 12/19 05:23 This 49 yrs old Male presents to ER via Ambulatory with complaints of High tt7 Blood Pressure. 07:27 Was visiting family member who is sick in the hospital when began to have high blood tt7 pressure with systolic blood pressure in the 170s and 180s, he had associated frontal headache that was mild in severity but sharp in character, also had some associated chest tightness, patient has history of hypertension, usually takes 40 mg lisinopril daily, he has been out of his medication for the past 4 to 6 weeks, reports he took 1 dose about an hour prior to arrival. Historical: - Allergies: 12/18 20:12 No Known Allergies; jb4 - Home Meds: 20:12 lisinopril 40 mg oral tablet [Active]; jb4 - PMHx: 20:12 Hypertension; Kidney stones; jb4 - PSHx: 20:12 Appendectomy; jb4 - Immunization history:: Adult Immunizations up to date. - Infectious Disease History:: Denies. - Social history:: Smoking status: Reported history of juuling and/or vaping. Patient uses alcohol, on a daily basis. ROS: 12/19 07:28 Constitutional: negative for fever. Respiratory: negative for shortness of breath. tt7 Abdomen/GI: negative for abdominal pain, nausea, vomiting, diarrhea. MS/Extremity: negative for injury and deformity. Skin: negative for rash. Neuro: negative for focal weakness. Cardiovascular: Positive for chest pain, Exam: 07:28 Constitutional: vital signs reviewed, well appearing. Head/Face: normocephalic, tt7 atraumatic. Eyes: no conjunctival injection, anicteric sclerae. ENT: mucus membranes moist. Neck: trachea midline, no JVD, no meningismus. Chest/axilla: normal chest wall appearance and motion, nontender, no crepitus. Cardiovascular: regular rate and rhythm, no murmurs, no rubs, no lower extremity edema. Respiratory: normal respiratory effort, no accessory muscle use, lungs CTAB. Abdomen/GI: soft, nondistended, nontender, no guarding or rebound, negative Jacob's sign, no McBurney point tenderness. Skin: warm, dry, intact, normal turgor, normal color, no rash. MS/ Extremity: normal ROM of extremities, no gross deformities. Neuro: alert and oriented with appropriate mental status, normal speech, follows commands, no focal neurologic deficits. Psych: appropriate mood and affect. Vital Signs: 12/18 20:11 BP 166 / 108; Pulse 88; Resp 16; Pulse Ox 96% on R/A; Weight 97.52 kg (R); Height 5 ft. jb4 10 in. (R); Pain 4/10; 21:42 BP 156 / 101; Pulse 81; Resp 16; Pulse Ox 96% on R/A; jb4 12/19 01:00 BP 149 / 93; Pulse 79; Resp 16; Pulse Ox 96% ; vc1 12/18 20:11 Body Mass Index 30.85 (97.52 kg, 177.8 cm) jb4 12/18 20:11 Pain Scale: Adult jb4 MDM: 12/18 20:20 Medical Screening Exam initiated tt7 22:02 Differential diagnosis: hypertensive crisis, ACS, anxiety, pneumothorax, pneumonia, tt7 pulmonary embolism. Data reviewed: vital signs, nurses notes, lab test result(s), EKG, radiologic studies. 22:03 ED course: I independently interpreted the patient's EKG performed on 12/18/2024 at tt7 9. On my interpretation, EKG demonstrates normal sinus rhythm, ventricular rate 79 bpm, normal axis, normal QRS interval, normal ST segments, no STEMI. 22:06 ED course: I independently interpreted the patient's chest x-ray. On my interpretation, tt7 chest x-ray demonstrates no radiographic evidence of acute cardiopulmonary disease. Cardiac monitoring was ordered due to the potential for ACS causing dysrythmia. I independently interpreted the patient's cardiac rhythm as normal sinus rhythm at a rate of 82 bpm on the equipment monitor phototypesetting. 22:08 ED course: Pulmonary embolism clinically ruled out with PERC rule. tt7 12/19 07:29 ED course: Serial troponins are negative, patient has a low risk heart score, I tt7 reassessed the patient and feels significantly improved after medications, workup overall reassuring, I provided the patient with 30-day supply of his lisinopril I recommended that he follow-up with the primary care provider, return precautions discussed, after completion of the patient's emergency department evaluation, I do not suspect a life-threatening or disabling process. Patient is medically stable and not in need of emergent medical intervention. I had a detailed discussion with the patient regarding the historical points, exam findings, emergency department evaluation, diagnostic results, and the discharge diagnosis. I instructed the patient on outpatient management of their condition. I discussed the need for outpatient follow-up with a primary care physician. I informed the patient on return precautions, including the need to return to the ED if symptoms do not improve, worsen, or if there are any questions or concerns that arise at home. The patient was discharged in stable condition. 12/18 20:35 Order name: Basic Metabolic Panel; Complete Time: 21:37 tt7 12/18 20:35 Order name: CBC with Diff; Complete Time: 21:37 tt7 12/18 20:35 Order name: Troponin HS; Complete Time: 21:37 tt7 12/18 22:09 Order name: Troponin High Sensitivity; Complete Time: 00:37 tt7 12/18 20:35 Order name: XRAY Chest (1 view); Complete Time: 22:08 tt7 12/18 20:35 Order name: Cardiac monitoring; Complete Time: 20:51 tt7 12/18 20:35 Order name: EKG - Nurse/Tech; Complete Time: 20:52 tt7 12/18 20:35 Order name: IV Saline Lock; Complete Time: 20:48 tt7 12/18 20:35 Order name: Labs collected and sent; Complete Time: 20:48 tt7 12/18 20:35 Order name: O2 Per Protocol; Complete Time: 20:37 tt7 12/18 20:35 Order name: O2 Sat Monitoring; Complete Time: 20:37 tt7 Administered Medications: 12/18 20:49 Drug: Acetaminophen PO 1000 mg PO once Route: PO; jb4 20:49 Drug: Ketorolac IVP 15 mg IVP once Route: IVP; Site: right antecubital; jb4 21:42 Drug: HYDROmorphone IVP 0.5 mg IVP once Route: IVP; Site: right antecubital; jb4 12/19 00:05 Drug: Ativan IVP 0.5 mg IVP once Route: IVP; Site: right antecubital; cc6 Disposition: 07:30 Co-signature as Attending Physician, Pablo Trejo DO. tt7 Disposition Summary: 12/19/24 00:38 Discharge Ordered Notes: Location: Home tt7 Problem: new tt7 Symptoms: have improved tt7 Condition: Stable tt7 Diagnosis - Chest pain, unspecified tt7 - Essential (primary) hypertension tt7 Followup: tt7 - With: Emergency Department - When: As needed - Reason: Followup: tt7 - With: Private Physician - When: 1 - 2 days - Reason: Recheck today's complaints, Re-evaluation by your physician Discharge Instructions: - Discharge Summary Sheet tt7 - Nonspecific Chest Pain, Adult, [id number] tt7 - Managing Your Hypertension tt7 Forms: - Medication Reconciliation Form tt7 - Antibiotic Education tt7 - Prescription Opioid Use tt7 - Patient Portal Instructions tt7 - Leadership Thank You Letter tt7 Prescriptions: - lisinopril 40 mg Oral tablet - take 1 tablet ORAL route daily for 30 days; 30 tablet; Refills: 0, Product tt7 Selection Permitted Addendum: 12/20/2024 03:07 Co-signature as Attending Physician, Pablo Trejo DO. t t7 Signatures: Dispatcher [employer] Monty Braden RN RN jb4 Emma Cervantes RN RN cc6 Pablo Trejo DO DO tt7 Corrections: (The following items were deleted from the chart) 12/18 20:36 20:36 Chest Single View+[email or web address] ordered. [facility] 12/19 07:28 07:27 Was visiting family member who is sick in the hospital when. tt7 tt7 07:30 12/18 22:06 ED course: I independently interpreted the patient's chest x-ray. On my tt7 interpretation, chest x-ray demonstrates no radiographic evidence of acute cardiopulmonary disease. Cardiac monitoring was ordered due to the potential for ACS causing dysrythmia. I independently interpreted the patient's cardiac rhythm as normal sinus rhythm at a rate of 82 bpm on the equipment monitor phototypesetting.. tt7
[2024-12-19 01:15] VITALS: O2SAT 96
[2024-12-19 01:18] VITALS: BP 149/93
== END 2024-12-19 01:10 | disposition home or self-care (01) ==
LOC: ER 20:07
DX: R07.9 Chest pain, unspecified (principal); I10 Essential (primary) hypertension
CPT/HCPCS: 93005; 85025; 80048; 36415; 84484 ×2; 71045; 96375; 96374; 99284; J1171; J1885